=== PATIENT | male | born 1935 | race African-American/Black ===

== ENCOUNTER 2017-09-20 13:25 | Inpatient (IN) | payer MEDICARE, MEDICAID ==
[2017-09-20 15:46] LABS: #Eosinphils 0.3 thou/uL (0.0-0.7); #Lymphocytes 0.8 thou/uL (1.20-3.40); #Monocytes 0.5 thou/uL (0.11-0.59); #Neutrophils 4.8 thou/uL (1.40-6.50); %Basophils 0.5 % (0.0-1.0); %Eosinophils 4.9 % (0.0-10.0); %Lymphocytes 12.3 % (21.0-51.0); %Monocytes 7.4 % (0.0-10.0); %Neutrophils 74.9 % (42.0-75.0); Hemoglobin 12.2 g/dL (14.0-18.0); Mean Corpuscular HGB CONC 32.3 g/dL (32.0-36.0); Mean Corpuscular Hemoglobin 27.8 pg (27.0-31.0); Mean Corpuscular Volume 86.2 fL (78.0-98.0); Platelet Count 137 thou/uL (130-400); RBC Distribution Width 16.9 % (11.5-14.5); Red Blood Cell (RBC) Count 4.37 mill/uL (4.70-6.10); White Blood Cell (WBC) Count 6.4 thou/uL (4.8-10.8)
[2017-09-20 16:07] LABS: ALT (SGPT) 8 U/L (8-55); AST (SGOT) 14 U/L (5-34); Albumin 4.3 g/dL (3.4-4.8); Alkaline Phosphatase 114 U/L (40-150); Anion Gap 19 mmol/L (10-20); BUN (Urea Nitrogen) 50 mg/dL (8.4-25.7); Bilirubin, Total 0.8 mg/dL (0.2-1.2); Calc. Creatinine Clearance 0 mL/min (70-130); Calcium 9.4 mg/dL (7.8-10.44); Carbon Dioxide 28 mmol/L (23-31); Chloride 95 mmol/L (98-107); Estimated GFR-MDRD 7; Globulin 3.5 g/dL (2.4-3.5); Glucose 105 mg/dL (83-110); Protein, Total 7.8 g/dL (5.8-8.1); Sodium 137 mmol/L (136-145)
[2017-09-20] MEDS ORDERED: Famotidine 20 MG TAB PO SCH (17:15)
--- NOTE | 2017-09-20 19:14 | PDOC.FPRHP ---
- History of Present Illness History of Present Illness: 82 yo M halfway patient with PMH of ESRD on dialysis presents for clotted AV Fistula in [facility]. Saturday, patient went for dialysis and was found to have a clot in his fistula. He received a successful arteriogram from [facility]. The next day access clotted again, was sent to [facility] for second opinion, AV fistulogram performed without success. Pt denies any headache, fever /chills, SOB, chest pain. Reports arm is slightly sore. - Allergies/Adverse Reactions Allergies Allergy/AdvReac Type Severity Reaction Status Date / Time aspirin Allergy Verified 09/20/17 12:07 codeine Allergy Verified 09/20/17 12:07 - History PMHx: ESRD on MWF dialysis, HTN, HLD, DM2, CAD, hyperphosphatemia, GERD, irregular heart beat PSHx: s/p cufted hemodialysis cath, s/p L dialysis shunt fistulogram, cataract surgery FHx: Mother- unspecified cancer, denied cardiac hx Social: denied tobacco/drugs/alcohol. Lives at [facility]. - Review of Systems General: denies: fever/chills Eyes: denies: eye pain, vision changes ENT: reports: nasal congestion, rhinorrhea Respiratory: reports: cough, congestion. denies: shortness of breath Cardiovascular: denies: chest pain, palpitation Gastrointestinal: denies: nausea, vomiting, diarrhea, constipation, abdominal pain, GI bleeding Musculoskeletal: denies: pain - Vital signs BP 151/59, P 71, R 18, T 98.4, O2 95% on RA - Physical Exam Constitutional: NAD HEENT: normocephalic and atraumatic, PERRLA, MMM, other (poor dentition) Neck: supple, no LAD Heart: RRR, normal S1/S2, no murmurs/rubs/gallops, pulses present Lungs: CTAB, no respiratory distress, good air movement, no rales/rhonchi Abdomen: non-tender, bowel sounds present, no masses/distention Neurological: CN II-XII intact Skin: good turgor, capillary refill <2 seconds Psychiatric: normal mood and affect, intact recent and remote memory FMR H&P: Results - Labs Result Diagrams: 09/21/17 04:44 09/21/17 04:44 Lab results: WBC 6.4 thou/uL (4.8-10.8) 09/20/17 15:36 Hgb 12.2 g/dL (14.0-18.0) L 09/20/17 15:36 Hct 37.7 % (42.0-52.0) L 09/20/17 15:36 MCV 86.2 fL (78.0-98.0) 09/20/17 15:36 Plt Count 137 thou/uL (130-400) 09/20/17 15:36 Neutrophils % 74.9 % (42.0-75.0) 09/20/17 15:36 Sodium 137 mmol/L (136-145) 09/20/17 15:36 Potassium 5.0 mmol/L (3.5-5.1) 09/20/17 15:36 Chloride 95 mmol/L (98-107) L 09/20/17 15:36 Carbon Dioxide 28 mmol/L (23-31) 09/20/17 15:36 BUN 50 mg/dL (8.4-25.7) H 09/20/17 15:36 Creatinine 8.75 mg/dL (0.6-1.3) H 09/20/17 15:36 Glucose 105 mg/dL (83-110) 09/20/17 15:36 Calcium 9.4 mg/dL (7.8-10.44) 09/20/17 15:36 Total Bilirubin 0.8 mg/dL (0.2-1.2) 09/20/17 15:36 AST 14 U/L (5-34) 09/20/17 15:36 ALT 8 U/L (8-55) 09/20/17 15:36 Alkaline Phosphatase 114 U/L (40-150) 09/20/17 15:36 Serum Total Protein 7.8 g/dL (5.8-8.1) 09/20/17 15:36 Albumin 4.3 g/dL (3.4-4.8) 09/20/17 15:36 FMR H&P: A/P - Problem List (1) Thrombus due to any device, implant or graft Current Visit: Yes Status: Acute Code(s): T85.868A - THROMBOSIS DUE TO OTHER INTERNAL PROSTH DEV/GRFT, INIT (2) ESRD (end stage renal disease) on dialysis Current Visit: Yes Status: Chronic Code(s): N18.6 - END STAGE RENAL DISEASE ; Z99.2 - DEPENDENCE ON RENAL DIALYSIS (3) HTN (hypertension) Current Visit: Yes Status: Chronic Code(s): I10 - ESSENTIAL (PRIMARY) HYPERTENSION (4) T2DM (type 2 diabetes mellitus) Current Visit: Yes Status: Chronic (5) CAD (coronary artery disease) Current Visit: Yes Status: Chronic Code(s): I25.10 - ATHSCL HEART DISEASE OF [place] CORONARY ARTERY W/O ANG PCTRS (6) HLD (hyperlipidemia) Current Visit: Yes Status: Chronic Code(s): E78.5 - HYPERLIPIDEMIA, UNSPECIFIED (7) Hyperphosphatemia Current Visit: Yes Status: Chronic Code(s): E83.39 - OTHER DISORDERS OF PHOSPHORUS METABOLISM (8) Insomnia Current Visit: Yes Status: Chronic Code(s): G47.00 - INSOMNIA, UNSPECIFIED - Plan 82 yo M with PMH of ESRD on dialysis presents for clotted AV Fistula in [facility]. ESRD on dialysis MWF with clotted AV fistula in [facility] -Saturday, Pt had clot on Saturday and received successful arteriogram from [facility]. The next day access clotted again, was sent to [facility] for second opinion, AV fistulogram performed without success. Dr. Meyer out of town , stated patient my not have subclavian, IJ, or IV above wrist; then Dr. Wong was consulted for femoral vein catheter for temporary access until surgery can be performed on Saturday by Dr Celeste. -Diet: renal high protein diet HTN -Hydralazine , lasix, lisinopril, norvasc, coreg HLD and CAD -atorvastatin, plavix hyperphosphatemia -phoslo GERD -pepcid Insomnia -Trazodone DVT Prophylaxis -heparin due to his PERRYD Juan Amaya PGY-1 FMR H&P: Upper Level - Pertinent history 82M presents for clotted dialysis catheter. This has been a recurrent issue. First occurred 2 day prior; it was successfully cleared by radiology and he received dialysis at this time. Today, he was found to have clotted off his left arm fistula again. Radiology attempted to clear it but was unable to. Dr. Son then instructed patient to go to ER for admission to be evaluated by Gen. Surg to obtain vascular access. ROS: Gen: Deny fever, chills, malaise CV: Denies chest pain, palpitation. Resp: Denies SOB GI: Deny Abd pain PMH: HTN, DM2, ESRD PSH: L Dialysis shunt - Pertinent findings Vitals 138/66, Pulse 67, R 18, Tmax 98.5, 93% on RA, 96kg Gen: Alert, grossly oriented, NAD CV: Irregular heart rate heard, no obvious m/g/r Resp: CTA bilaterally, non labored Psych: Pleasant and cooperative - Plan Date/Time: 09/20/171911 I, [Jason Raymond], have evaluated this patient and agree with findings/plan as outlined by mba internship resident. Pertinent changes/additions are listed here. 1. Clotted AV Fistula: Discussed case with Nephrology and Gen Surg: Gen surg will place femoral vein catheter at this time. On Saturday, Dr. Celeste will be in and to be consulted at that time for evaluation of the clotted AV Fistula. Dr. Son with Nephrology is aware and on board for dialysis while patient is hospitalized. 2. Irregular HR: HR in normal range and patient not symptomatic. Will obtain EKG to clarify rhythm. Patient has plavix which he says he takes for irregular heart rhythm. Will continue it. 3. HLD: Continue atorvastatin 4. Chronic constipation: Continue dulcolax 5. HTN: Continue lisinpril/hydrlazine and norvasc 6. Gerd: Continue Pepcid 7. Hyperphosphatemia: Continue with phoslo. Attending Addendum - Attending Addendum Date/Time: 09/21/17 1213 I personally evaluated the patient and discussed the management with Dr. Amaya. I agree with the History, Examination, Assessment and Plan documented above with any addition or exceptions noted below.
[2017-09-20] MEDS ORDERED: Lidocaine 1% (PF) 30 ML VIAL ONE (19:57)
[2017-09-20] MEDS ORDERED: Lidocaine 1% (PF) 30 ML VIAL FS PRN (21:20)
[2017-09-20] MEDS: Atorvastatin Calcium 10 MG TAB PO SCH (22:30)
[2017-09-20] MEDS: hydrALAZINE 25 MG TAB PO SCH (22:30)
[2017-09-20] MEDS: Heparin 5,000 UNITS/ML VIAL SC SCH (22:31)
[2017-09-20] MEDS: traZODone HCl 50 MG TAB PO PRN (22:36)
[2017-09-20] MEDS: Acetaminophen 500 MG TAB PO PRN (22:36)
--- NOTE | 2017-09-20 23:49 | OP ---
DATE OF PROCEDURE: 09/20/2017 PREOPERATIVE DIAGNOSES: 1. Acute on chronic renal failure. 2. Clotted permanent dialysis access. POSTOPERATIVE DIAGNOSES: 1. Acute on chronic renal failure. 2. Clotted permanent dialysis access. PROCEDURE PERFORMED: Placement of right femoral Trialysis catheter. INDICATIONS FOR PROCEDURE: An 82-year-old -[place] man with history of chronic renal failure . The patient presented to the emergency department with a clotted dialysis access. I was asked to place a temporary dialysis access to facilitate hemodialysis. DESCRIPTION OF PROCEDURE: Informed consent obtained from the patient who was placed in supine positi on. Right groin was sterilely prepped and draped in usual fashion. Skin was anesthetized with 1% li docaine plain. The right femoral artery was palpated and the right femoral vein was then cannulated medial to the palpated artery. I returned dark venous blood using an 18-gauge introducer needle. Gu idewire was passed through the needle and advanced into the right femoral vein without resistance. T his was a single attempt. Needle was withdrawn over the guidewire. A stab incision was made adjacen t to the guidewire using an 11 scalpel. A dilator was passed over the guidewire dilating subcutaneou s tissues. Dilator was removed and a triple-lumen Trialysis catheter was advanced over the guidewire and placed in the right femoral vein without resistance. Guidewire was removed. Dark venous blood was aspirated from all 3 ports which were individually flushed with saline and then with heparin. Ca theter secured to right groin using a 3-0 nylon suture at 2 points. Sterile dressings were applied. The patient tolerated this procedure without any apparent complication and remains hemodynamically s table following completion of the procedure.
[2017-09-21 01:19] VITALS: BMI 28.8
[2017-09-21 04:57] LABS: #Eosinphils 0.3 thou/uL (0.0-0.7); #Lymphocytes 0.8 thou/uL (1.20-3.40); #Monocytes 0.7 thou/uL (0.11-0.59); #Neutrophils 3.8 thou/uL (1.40-6.50); %Basophils 0.3 % (0.0-1.0); %Eosinophils 5.4 % (0.0-10.0); %Lymphocytes 14.1 % (21.0-51.0); %Monocytes 11.8 % (0.0-10.0); %Neutrophils 68.3 % (42.0-75.0); Hemoglobin 10.6 g/dL (14.0-18.0); Mean Corpuscular HGB CONC 32.9 g/dL (32.0-36.0); Mean Corpuscular Hemoglobin 28.1 pg (27.0-31.0); Mean Corpuscular Volume 85.4 fL (78.0-98.0); Mean Platelet Volume 9.7 fL (7.4-10.4); Platelet Count 123 thou/uL (130-400); Red Blood Cell (RBC) Count 3.77 mill/uL (4.70-6.10); White Blood Cell (WBC) Count 5.6 thou/uL (4.8-10.8)
[2017-09-21 05:22] LABS: Anion Gap 22 mmol/L (10-20); BUN (Urea Nitrogen) 63 mg/dL (8.4-25.7); Calc. Creatinine Clearance 8 mL/min (70-130); Calcium 9.2 mg/dL (7.8-10.44); Carbon Dioxide 28 mmol/L (23-31); Chloride 95 mmol/L (98-107); Estimated GFR-MDRD 6; Glucose 75 mg/dL (83-110); Phosphorus 5.2 mg/dL (2.3-4.7); Potassium 5.6 mmol/L (3.5-5.1); Sodium 139 mmol/L (136-145)
[2017-09-21] MEDS ORDERED: Dextrose 5% in Water 1,000 ML IV PRN (05:50)
[2017-09-21] MEDS ORDERED: HumaLOG 300 UNITS/3 ML VIAL SC PRN ×2 (05:50)
[2017-09-21] MEDS ORDERED: Dextrose 50% Abboject 50 ML SYRINGE SLOW IVP PRN (05:50)
--- NOTE | 2017-09-21 06:06 | PDOC.FM ---
- Subjective Subjective: Pt. states that he is frustrated by how many times he is being stuck for blood. He wants to know when he can leave. 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 He also states that he is having some pain in his groin where they placed the catheter. He denies chest pain, dyspnea, abdominal pain, nausea , or vomiting. - Objective MAR Reviewed: Yes Vital Signs & Weight: Vital Signs (12 hours) Temp Pulse Resp BP BP Pulse Ox 09/21/17 04:00 98.1 F 65 16 137/70 90 L 09/21/17 00:00 98.5 F 62 16 121/66 93 L 09/20/17 22:30 71 154/71 H 09/20/17 21:30 98.5 F 62 16 09/20/17 20:34 98.4 F 63 18 154/71 H 94 L Weight Weight 96.6 kg Result Diagrams: 09/21/17 04:44 09/21/17 04:44 <Enrique Parham - Last Filed: 09/21/17 07:46> - Objective Vital Signs & Weight: Vital Signs (12 hours) Temp Pulse Resp BP BP Pulse Ox 09/21/17 08:23 154/71 H 09/21/17 08:22 64 154/71 H 09/21/17 08:19 64 154/71 H 09/21/17 08:00 98.2 F 64 18 97 09/21/17 07:39 98.3 F 64 20 124/77 90 L 09/21/17 04:00 98.1 F 65 16 137/70 90 L Weight Weight 96.6 kg I&O: 09/20/17 09/21/17 09/22/17 06:59 06:59 06:59 Intake Total 640 Balance 640 Result Diagrams: 09/21/17 04:44 09/21/17 04:44 <Doyle Crespo - Last Filed: 09/21/17 12:42> Phys Exam - Physical Examination Constitutional: NAD HEENT: PERRLA, moist MMs Neck: no JVD, full ROM Respiratory: no wheezing, no rales Cardiovascular: RRR, no significant murmur Gastrointestinal: soft, non-tender, no distention, positive bowel sounds Musculoskeletal: no edema, pulses present Neurological: normal sensation, moves all 4 limbs Psychiatric: normal affect, A&O x 3 Skin: normal turgor, cap refill <2 seconds <Enrique Parham - Last Filed: 09/21/17 07:46> Dx/Plan (1) Thrombus due to any device, implant or graft Code(s): T85.868A - THROMBOSIS DUE TO OTHER INTERNAL PROSTH DEV/GRFT, INIT Status: Acute (2) CAD (coronary artery disease) Code(s): I25.10 - ATHSCL HEART DISEASE OF [place] CORONARY ARTERY W/O ANG PCTRS Status: Chronic (3) ESRD (end stage renal disease) on dialysis Code(s): N18.6 - END STAGE RENAL DISEASE; Z99.2 - DEPENDENCE ON RENAL DIALYSIS Status: Chronic (4) HLD (hyperlipidemia) Code(s): E78.5 - HYPERLIPIDEMIA, UNSPECIFIED Status: Chronic (5) HTN (hypertension) Code(s): I10 - ESSENTIAL (PRIMARY) HYPERTENSION Status: Chronic (6) Hyperphosphatemia Code(s): E83.39 - OTHER DISORDERS OF PHOSPHORUS METABOLISM Status: Chronic (7) Insomnia Code(s): G47.00 - INSOMNIA, UNSPECIFIED Status: Chronic (8) T2DM (type 2 diabetes mellitus) Status: Chronic - Plan Plan: This is an 82 yo male with PMH of ESRD w/ HD, HTN, DM2, CAD, HLD, GERD Clotted AV fistula in right arm -Dr. Son has been consulted to provide dialysis while pt. is her. A triple- lumen Trialysis catheter was placed in the right groin by Dr. Wong. On saturday, pt will be seen by Dr. Celeste for evaluation of AV fistula. ESRD w/ HD MWF -Will dialize through temporary femoral access HTN -Norvasc, Lisinopril, coreg, hydralazine HLD and CAD -atorvastatin, plavix Hyperphosphatemia -Phoslo GERD -Pepcid Insomnia -Trazodone Code: <Enrique Parham - Last Filed: 09/21/17 07:46> (1) Thrombus due to any device, implant or graft Code(s): T85.868A - THROMBOSIS DUE TO OTHER INTERNAL PROSTH DEV/GRFT, INIT Status: Acute (2) ESRD (end stage renal disease) on dialysis Code(s): N18.6 - END STAGE RENAL DISEASE; Z99.2 - DEPENDENCE ON RENAL DIALYSIS Status: Chronic (3) HTN (hypertension) Code(s): I10 - ESSENTIAL (PRIMARY) HYPERTENSION Status: Chronic (4) T2DM (type 2 diabetes mellitus) Status: Chronic (5) CAD (coronary artery disease) Code(s): I25.10 - ATHSCL HEART DISEASE OF [place] CORONARY ARTERY W/O ANG PCTRS Status: Chronic (6) HLD (hyperlipidemia) Code(s): E78.5 - HYPERLIPIDEMIA, UNSPECIFIED Status: Chronic (7) Hyperphosphatemia Code(s): E83.39 - OTHER DISORDERS OF PHOSPHORUS METABOLISM Status: Chronic (8) Insomnia Code(s): G47.00 - INSOMNIA, UNSPECIFIED Status: Chronic <Doyle Crespo - Last Filed: 09/21/17 12:42> Attending Addendum - Attending Addendum Date/Time: 09/21/17 1242 I personally evaluated the patient and discussed the management with Dr. Parham. I agree with the History, Examination, Assessment and Plan documented above with any addition or exceptions noted below. HD today. We appreciate Surgery's care. Hopefully vascular treatment on Saturday. <Doyle Crespo - Last Filed: 09/21/17 12:42>
[2017-09-21] MEDS: Acetaminophen 500 MG TAB PO PRN ×3 (07:14→20:47)
[2017-09-21] MEDS: Amlodipine 10 MG TAB PO SCH (08:19)
[2017-09-21] MEDS: Carvedilol 6.25 MG TAB PO SCH ×2 (08:19→17:46)
[2017-09-21] MEDS: Calcium Acetate 667 MG CAP PO SCH ×3 (08:19→17:46)
[2017-09-21] MEDS: Heparin 5,000 UNITS/ML VIAL SC SCH ×2 (08:19→14:55)
[2017-09-21] MEDS: Famotidine 20 MG TAB PO SCH (08:19)
[2017-09-21] MEDS: Clopidogrel Bisulfate 75 MG TAB PO SCH (08:19)
[2017-09-21] MEDS: hydrALAZINE 25 MG TAB PO SCH ×3 (08:22→20:44)
[2017-09-21] MEDS: Lisinopril 20 MG TAB PO SCH (08:23)
[2017-09-21] MEDS ORDERED: Epoetin (ESRD) 20,000 UNITS/ML SC SCH ×2 (09:00→17:00)
[2017-09-21] MEDS ORDERED: Prevnar 13-Val Conj/PF 0.5 ML SYRINGE IM ONE (09:00)
--- NOTE | 2017-09-21 12:15 | PRG ---
DATE OF SERVICE: 09/21/2017 SUBJECTIVE: Mr. Garcia is an 82-year-old black male with known history of ESRD from presumed hyperte nsive nephropathy and was admitted for nonfunctioning AV fistula. Two attempts to open this in the p ast for this reason, he was admitted for further surgical evaluation. We have consulted Dr. Sawyer and Dr. Celeste and they will not be back until Saturday. In addition, a surgical consult was bryant gupta with Dr. Wong and was placed temporary femoral dialysis catheter. This morning, he is feeling bet ter. Earlier this a.m., had some irregular heartbeat. Please note, this patient has a history of on and off fibrillation in the past. No complaints of chest pain or shortness of breath. OBJECTIVE: VITAL SIGNS: Blood pressure is 124/77, heart rate 64, respiratory rate 20, temperature 98.3, pulse o x 98%. GENERAL: Noted to be awake, sitting comfortable, not in distress. SKIN: Adequate turgor. HEENT: Slightly pale conjunctivae, anicteric sclerae. Decreased visual acuity. NECK: No neck mass, no carotid bruits, no JVD. LUNGS: Clear breath sounds. No wheezing, no crackles. HEART: Normal sinus rhythm. No murmur, no gallops or rubs. ABDOMEN: Globular, soft, nontender, no masses. EXTREMITIES: No edema. MEDICATIONS: Of 09/21/2017, reviewed. LABORATORY: Of 09/21/2017, white count 5.6, hemoglobin 10.6. Sodium 139, potassium 5.6, chloride 95 , carbon dioxide 28, BUN is 63, creatinine 9.66, glucose 75, calcium 9.2, phosphorus 5.2. PTH is 101 2. ASSESSMENT AND PLAN: 1. Borderline anemia - we will start this patient on Epogen at 7500 units subcutaneously every week. 2. Elevated PTH. Consider starting patient on calcitriol 0.5 mcg tab daily. 3. Hyperphosphatemia. Continue current phosphate binder use. 4. End-stage renal disease - temporary femoral dialysis catheter has been placed. I will schedule h im a 4-hour hemodialysis today. Fluid removal as tolerated by the patient. 5. Hypertension, stable. Continue current blood pressure meds. Recheck base met and CBC in a.m.
[2017-09-21] MEDS: Calcitriol 0.25 MCG CAP PO SCH (15:51)
[2017-09-21] MEDS: Atorvastatin Calcium 10 MG TAB PO SCH (20:41)
[2017-09-22] MEDS: Heparin 5,000 UNITS/ML VIAL SC SCH ×4 (00:16→21:00)
[2017-09-22 05:29] LABS: #Eosinphils 0.3 thou/uL (0.0-0.7); #Lymphocytes 0.7 thou/uL (1.20-3.40); #Monocytes 0.6 thou/uL (0.11-0.59); #Neutrophils 3.4 thou/uL (1.40-6.50); %Basophils 0.1 % (0.0-1.0); %Eosinophils 5.5 % (0.0-10.0); %Lymphocytes 13.3 % (21.0-51.0); %Monocytes 11.4 % (0.0-10.0); %Neutrophils 69.7 % (42.0-75.0); Hemoglobin 10.7 g/dL (14.0-18.0); Mean Corpuscular HGB CONC 32.1 g/dL (32.0-36.0); Mean Corpuscular Hemoglobin 27.7 pg (27.0-31.0); Mean Corpuscular Volume 86.4 fL (78.0-98.0); Mean Platelet Volume 9.9 fL (7.4-10.4); Platelet Count 128 thou/uL (130-400); RBC Distribution Width 17.1 % (11.5-14.5); Red Blood Cell (RBC) Count 3.85 mill/uL (4.70-6.10); White Blood Cell (WBC) Count 4.9 thou/uL (4.8-10.8)
[2017-09-22 05:43] LABS: Anion Gap 17 mmol/L (10-20); BUN (Urea Nitrogen) 29 mg/dL (8.4-25.7); Calc. Creatinine Clearance 13 mL/min (70-130); Calcium 8.6 mg/dL (7.8-10.44); Carbon Dioxide 24 mmol/L (23-31); Chloride 97 mmol/L (98-107); Estimated GFR-MDRD 10; Glucose 89 mg/dL (83-110); Potassium 4.8 mmol/L (3.5-5.1); Sodium 133 mmol/L (136-145)
--- NOTE | 2017-09-22 06:00 | PDOC.FM ---
- Subjective Subjective: Pt. states he is frustrated at the number of needle sticks he has been receiving. He also reports his femoral catheter bothering him. He denies any chest pain, shortness of breath, headaches. Nursing states that his daughter is coming up to the hospital. - Objective MAR Reviewed: Yes Vital Signs & Weight: Vital Signs (12 hours) Temp Pulse Resp BP BP Pulse Ox 09/21/17 20:44 62 134/74 09/21/17 20:00 98.3 F 62 18 134/71 94 L 09/21/17 19:36 98.3 F 58 L 18 98/55 L 91 L Weight Weight 96.6 kg I&O: 09/20/17 09/21/17 09/22/17 06:59 06:59 06:59 Intake Total 1120 Balance 1120 Result Diagrams: 09/22/17 05:18 09/22/17 05:18 <Enrique Parham - Last Filed: 09/22/17 07:44> - Objective Vital Signs & Weight: Vital Signs (12 hours) Temp Pulse Resp BP BP Pulse Ox 09/22/17 08:00 97.9 F 61 18 169/79 H 95 09/22/17 07:55 62 134/74 Weight Weight 96.6 kg I&O: 09/21/17 09/22/17 09/23/17 06:59 06:59 06:59 Intake Total 1120 360 Balance 1120 360 Result Diagrams: 09/22/17 05:18 09/22/17 05:18 <Doyle Crespo A - Last Filed: 09/22/17 13:10> Phys Exam - Physical Examination Constitutional: NAD HEENT: PERRLA, moist MMs Pt. is blind but has good control of environment Neck: no JVD, full ROM Respiratory: no wheezing, clear to auscultation bilateral Cardiovascular: RRR, no significant murmur Gastrointestinal: soft, non-tender, no distention, positive bowel sounds Musculoskeletal: no edema, pulses present Neurological: normal sensation, moves all 4 limbs Psychiatric: normal affect, A&O x 3 Skin: normal turgor, cap refill <2 seconds <Enrique Parham - Last Filed: 09/22/17 07:44> Dx/Plan (1) Thrombus due to any device, implant or graft Code(s): T85.868A - THROMBOSIS DUE TO OTHER INTERNAL PROSTH DEV/GRFT, INIT Status: Acute (2) CAD (coronary artery disease) Code(s): I25.10 - ATHSCL HEART DISEASE OF [place] CORONARY ARTERY W/O ANG PCTRS Status: Chronic (3) ESRD (end stage renal disease) on dialysis Code(s): N18.6 - END STAGE RENAL DISEASE; Z99.2 - DEPENDENCE ON RENAL DIALYSIS Status: Chronic (4) HLD (hyperlipidemia) Code(s): E78.5 - HYPERLIPIDEMIA, UNSPECIFIED Status: Chronic (5) HTN (hypertension) Code(s): I10 - ESSENTIAL (PRIMARY) HYPERTENSION Status: Chronic (6) Hyperphosphatemia Code(s): E83.39 - OTHER DISORDERS OF PHOSPHORUS METABOLISM Status: Chronic (7) Insomnia Code(s): G47.00 - INSOMNIA, UNSPECIFIED Status: Chronic (8) T2DM (type 2 diabetes mellitus) Status: Chronic - Plan Plan: This is an 82 yo male with PMH of ESRD w/ HD, HTN, DM2, CAD, HLD, GERD Clotted AV fistula in right arm -Dr. Son has been consulted to provide dialysis while pt. is her. A triple- lumen Trialysis catheter was placed in the right groin by Dr. Wong. On saturday, pt will be seen by Dr. Celeste for evaluation of AV fistula. ESRD w/ HD MWF -Will dialize through temporary femoral access. Dr. Son has been following patient and seeing him in dialysis Afib -PtNikos altman has long standing afib with no records in his custodial charts. Yesterday an EKG revealed afib rate controlled. We planned on monitoring him on tele and consulting cardiology. After a discussion with pt. and his daughter, we learned about his longstanding afib and their desire not to pursue any workup. I personally called to daughter and explained our rational for treating him as well as our plan going forward. Per nursing, daughter is still frustrated at the care her father is receiving. If she comes up her, I will try and listen to her concerns. HTN -Norvasc, Lisinopril, coreg, hydralazine HLD and CAD -atorvastatin, plavix Hyperphosphatemia -Phoslo GERD -Pepcid Insomnia -Trazodone Code:DNR Prophylaxis: Heparin Family: discussed plans with daughter Disposition: Home in 1-2 days pending fistula surgery <Enrique Parham - Last Filed: 09/22/17 07:44> (1) Thrombus due to any device, implant or graft Code(s): T85.868A - THROMBOSIS DUE TO OTHER INTERNAL PROSTH DEV/GRFT, INIT Status: Acute (2) ESRD (end stage renal disease) on dialysis Code(s): N18.6 - END STAGE RENAL DISEASE; Z99.2 - DEPENDENCE ON RENAL DIALYSIS Status: Chronic (3) HTN (hypertension) Code(s): I10 - ESSENTIAL (PRIMARY) HYPERTENSION Status: Chronic (4) T2DM (type 2 diabetes mellitus) Status: Chronic (5) CAD (coronary artery disease) Code(s): I25.10 - ATHSCL HEART DISEASE OF [place] CORONARY ARTERY W/O ANG PCTRS Status: Chronic (6) HLD (hyperlipidemia) Code(s): E78.5 - HYPERLIPIDEMIA, UNSPECIFIED Status: Chronic (7) Hyperphosphatemia Code(s): E83.39 - OTHER DISORDERS OF PHOSPHORUS METABOLISM Status: Chronic (8) Insomnia Code(s): G47.00 - INSOMNIA, UNSPECIFIED Status: Chronic <Doyle Crespo - Last Filed: 09/22/17 13:10> Attending Addendum - Attending Addendum Date/Time: 09/22/17 [id number] I personally evaluated the patient and discussed the management with Dr. Parham. I agree with the History, Examination, Assessment and Plan documented above with any addition or exceptions noted below. Because of our evalaution of patients atrial fib, family requests transfer to another service. Mr. Garcia seemed pleased with our care, and out of respect for him and his family we have requested [facility] to accept care and they kindly have. <Doyle Crespo - Last Filed: 09/22/17 13:10>
[2017-09-22] MEDS: Calcitriol 0.25 MCG CAP PO SCH (07:53)
[2017-09-22] MEDS: Famotidine 20 MG TAB PO SCH (07:54)
[2017-09-22] MEDS: Calcium Acetate 667 MG CAP PO SCH ×3 (07:55→16:47)
[2017-09-22] MEDS: Clopidogrel Bisulfate 75 MG TAB PO SCH (07:55)
[2017-09-22] MEDS: Amlodipine 10 MG TAB PO SCH (07:55)
[2017-09-22] MEDS: hydrALAZINE 25 MG TAB PO SCH ×3 (07:55→20:56)
[2017-09-22] MEDS: Carvedilol 6.25 MG TAB PO SCH ×2 (07:55→16:47)
[2017-09-22] MEDS: Lisinopril 20 MG TAB PO SCH (07:55)
--- NOTE | 2017-09-22 09:05 | PRG ---
DATE OF SERVICE: 09/22/2017 SERVICE: Renal Medicine. SUBJECTIVE: Mr. Garcia is an 82-year-old black male, who was admitted for a clotted AV fistula. Att empt to open this up 2 times was unsuccessful, hence the admission. We are waiting for surgical eval uation by Dr. Meyer/Dr. Celeste. He underwent hemodialysis yesterday. A temporary femoral dialysis catheter was placed. He voices no new complaints today. PHYSICAL EXAMINATION: VITAL SIGNS: Blood pressure is 134/74, heart rate 62. GENERAL EXAM: Noted to be awake, alert, comfortable, not in distress. SKIN: Adequate turgor. HEENT: Slightly pale conjunctivae, anicteric sclerae. NECK: No neck mass, no carotid bruits, no JVD. CHEST: No deformities. LUNGS: Clear breath sounds. HEART: Normal sinus rhythm. No murmur, no gallops, no rubs. ABDOMEN: Globular, soft, nontender, no masses. EXTREMITIES: No edema. LABORATORY DATA: Laboratories of 09/22/2017, white count 4.9, hemoglobin 10.7. Sodium 133, potassiu m 4.8, chloride 97, carbon dioxide 24, BUN 29, creatinine 6.39, calcium 8.6. 09/21/2017, PTH 1012. ASSESSMENT AND PLAN: 1. End-stage renal disease - stable, underwent hemodialysis yesterday, tolerated said treatment. Fl uid removal was tolerated also. We will continue current Saturday, Saturday, Saturday hemodialysis. 2. Anemia, started on Epogen. 3. Secondary hyperparathyroidism. Calcitriol 0.5 mcg tab daily was started. 4. Mild hyperphosphatemia, on phosphate binders. 5. Clotted left upper extremity arteriovenous fistula. Awaiting surgical input. Recheck basic metabolic panel and CBC in a.m.
--- NOTE | 2017-09-22 09:11 | PDOC.EVN ---
Event Note - Event Note Event Note: Pt's daughter has elected to fire current hospitalist service. Pt. and daughter has been dissatisfied with current care. This dissatisfaction stems from our attempt to work up afib. This was a new diagnosis to us and we transferred to telemetry and planned to consult cardiology for recommendations. Pt. and daughter did not want this worked up because it was a chronic problem, which was unknown to us prior to admission. It is not documented in his [facility] history.
--- NOTE | 2017-09-22 14:16 | PDOC.PN ---
- Subjective Encounter Start Date: 09/22/17 Encounter Start Time: 12:20 Subjective: right groin catheter is bothersome, patient wants it out - Objective Resuscitation Status: Resuscitation Status DNR:Do Not Resuscitate MAR Reviewed: Yes Vital Signs & Weight: Vital Signs (12 hours) Temp Pulse Resp BP BP Pulse Ox 09/22/17 12:00 98.0 F 67 18 122/71 94 L 09/22/17 08:00 97.9 F 61 18 169/79 H 95 09/22/17 07:55 62 134/74 Weight Weight 212 lb 15.465 oz I&O: 09/21/17 09/22/17 09/23/17 06:59 06:59 06:59 Intake Total 1120 360 Balance 1120 360 Result Diagrams: 09/22/17 05:18 09/22/17 05:18 Additional Labs: Accuchecks 09/22/17 09/21/17 06:14 16:07 POC Glucose 81 157 H Phys Exam - Physical Examination HEENT: PERRLA, moist MMs, sclera anicteric, TM's clear, oral pharynx no lesions , 2+ tonsils Neck: no nodes, no JVD, supple, full ROM Respiratory: no wheezing, no rales, no rhonchi, wheezing present, clear to auscultation bilateral Cardiovascular: no significant murmur, no rub, irregular Gastrointestinal: soft, non-tender, no distention, positive bowel sounds Musculoskeletal: no edema left femral dialysis catheter, left dialysis fistula covered in dressing Neurological: non-focal, normal sensation, moves all 4 limbs Psychiatric: normal affect, A&O x 3 Skin: no rash, normal turgor, cap refill <2 seconds Dx/Plan (1) Thrombus due to any device, implant or graft Code(s): T85.868A - THROMBOSIS DUE TO OTHER INTERNAL PROSTH DEV/GRFT, INIT Status: Acute (2) ESRD (end stage renal disease) on dialysis Code(s): N18.6 - END STAGE RENAL DISEASE; Z99.2 - DEPENDENCE ON RENAL DIALYSIS Status: Chronic (3) HTN (hypertension) Code(s): I10 - ESSENTIAL (PRIMARY) HYPERTENSION Status: Chronic (4) T2DM (type 2 diabetes mellitus) Status: Chronic - Plan cont current plan of care, plan discussed w/ family This is an 82 yo male with PMH of ESRD w/ HD, HTN, DM2, CAD, HLD, GERD Clotted AV fistula in right arm -Dr. Son has been consulted to provide dialysis while pt. is here. A triple- lumen Trialysis catheter was placed in the right groin by Dr. Wong. On saturday, pt will be seen by Dr. Celeste for evaluation of AV fistula. ESRD w/ HD MWF -Will dialize through temporary femoral access. Dr. Son has been following patient and seeing him in dialysis Afib -PtNikos altman has long standing afib with no records in his shelter charts. Yesterday an EKG revealed afib rate controlled. Patient was moved to tele unit for further monitoring by resident team. Family was unhappy and requested [facility] to take over the care HTN -Norvasc, Lisinopril, coreg, hydralazine HLD and CAD -atorvastatin, plavix Hyperphosphatemia -Phoslo GERD -Pepcid Insomnia -Trazodone * .
[2017-09-22] MEDS: Acetaminophen 500 MG TAB PO PRN ×2 (15:25→20:59)
[2017-09-22] MEDS: Atorvastatin Calcium 10 MG TAB PO SCH (20:59)
[2017-09-23] MEDS: Benzonatate 100 MG CAP PO PRN ×2 (02:46→21:00)
[2017-09-23 05:14] LABS: #Eosinphils 0.3 thou/uL (0.0-0.7); #Lymphocytes 0.8 thou/uL (1.20-3.40); #Monocytes 0.6 thou/uL (0.11-0.59); #Neutrophils 3.8 thou/uL (1.40-6.50); %Basophils 0.5 % (0.0-1.0); %Eosinophils 5.8 % (0.0-10.0); %Lymphocytes 15.1 % (21.0-51.0); %Monocytes 10.5 % (0.0-10.0); Hemoglobin 10.6 g/dL (14.0-18.0); Mean Corpuscular HGB CONC 31.9 g/dL (32.0-36.0); Mean Corpuscular Hemoglobin 27.2 pg (27.0-31.0); Mean Corpuscular Volume 85.2 fL (78.0-98.0); Platelet Count 132 thou/uL (130-400); RBC Distribution Width 16.8 % (11.5-14.5); Red Blood Cell (RBC) Count 3.91 mill/uL (4.70-6.10); White Blood Cell (WBC) Count 5.5 thou/uL (4.8-10.8)
[2017-09-23 05:23] LABS: Anion Gap 19 mmol/L (10-20); BUN (Urea Nitrogen) 42 mg/dL (8.4-25.7); Calc. Creatinine Clearance 10 mL/min (70-130); Calcium 8.7 mg/dL (7.8-10.44); Carbon Dioxide 26 mmol/L (23-31); Chloride 94 mmol/L (98-107); Estimated GFR-MDRD 8; Glucose 74 mg/dL (83-110); Potassium 4.8 mmol/L (3.5-5.1); Sodium 134 mmol/L (136-145)
[2017-09-23] MEDS: Acetaminophen 500 MG TAB PO PRN ×2 (07:43→21:00)
--- NOTE | 2017-09-23 08:38 | PRG ---
DATE OF SERVICE: 09/23/2017 SUBJECTIVE: Mr. Garcia is a 82-year-old black male with known history of ESRD, was admitted for a cl otted AV fistula/graft. A temporary femoral dialysis catheter has been placed by Dr. Wong. We are waiting for surgical consult with Dr. Meyer/Dr. Celeste for possible surgical thrombectomy or revisi on of his access as well as placement of a permanent dialysis catheter if needed. No new complaints today except the fact that he complains of being disturbed in the middle of the night. No complaints of chest pain or shortness of breath. PHYSICAL EXAMINATION: VITAL SIGNS: Blood pressure is 115/68, heart rate 67, respiratory rate 14, temperature 98.3, pulse o x 95%. GENERAL: Noted to be awake, comfortable, not in overt distress. SKIN: Adequate turgor. HEENT: He has slightly pale conjunctivae, anicteric sclerae. NECK: No neck mass, no carotid bruits, no JVD. CHEST: No deformities. LUNGS: Clear breath sounds. HEART: Irregular to regular. No murmur, no gallops, no rubs. ABDOMEN: Globular, soft, nontender, no masses. EXTREMITIES: No edema, no deformities. MEDICATIONS: 09/23/2017 - Reviewed. LABORATORY: 09/23/2017 - White count 5.5, hemoglobin 10.6, sodium 134, potassium 4.8, chloride 94, c arbon dioxide 26, BUN 42, creatinine 8.27, glucose 87, calcium 8.7. ASSESSMENT AND PLAN: 1. End-stage renal disease, stable. Tolerating current hemodialysis regimen. I am at the bedside s upervising his dialysis. Attempting fluid removal as tolerated. 2. Anemia - on weekly Epogen. 3. Secondary hyperparathyroidism. The patient has been started on calcitriol 0.5 mcg tab daily. 4. Clotted AV fistula - surgical consult has been done. The patient is currently on n.p.o. I agree with current management.
[2017-09-23] MEDS ORDERED: Heparin 10,000 UNITS/ 10 ML VIAL ONE (09:00)
[2017-09-23] MEDS: Calcium Acetate 667 MG CAP PO SCH ×3 (09:44→16:04)
[2017-09-23] MEDS: Carvedilol 6.25 MG TAB PO SCH ×2 (09:45→16:04)
[2017-09-23] MEDS: Heparin 5,000 UNITS/ML VIAL SC SCH ×3 (09:45→20:59)
[2017-09-23] MEDS: hydrALAZINE 25 MG TAB PO SCH ×3 (09:46→20:59)
[2017-09-23] MEDS: Calcitriol 0.25 MCG CAP PO SCH (12:40)
[2017-09-23] MEDS: Clopidogrel Bisulfate 75 MG TAB PO SCH (12:42)
[2017-09-23] MEDS: Famotidine 20 MG TAB PO SCH (12:42)
[2017-09-23] MEDS: Amlodipine 10 MG TAB PO SCH (12:44)
[2017-09-23] MEDS: Lisinopril 20 MG TAB PO SCH (12:45)
--- NOTE | 2017-09-23 14:10 | PDOC.PN ---
- Subjective Encounter Start Date: 09/23/17 (f/u clotted AV fistula) Encounter Start Time: 14:07 Subjective: Pt c/o being hungry, unable to sleep after blood drawn overnight -: denies cp/sob/n/v/abd pain - Objective Resuscitation Status: Resuscitation Status DNR:Do Not Resuscitate Vital Signs & Weight: Vital Signs (12 hours) Temp Pulse Resp BP BP Pulse Ox 09/23/17 12:45 132/68 09/23/17 12:44 121/68 09/23/17 12:38 98.1 F 84 16 121/68 98 09/23/17 08:00 98.1 F 84 16 98 Weight Weight 212 lb 15.465 oz I&O: 09/22/17 09/23/17 09/24/17 06:59 06:59 06:59 Intake Total 1120 960 Balance 1120 960 Result Diagrams: 09/23/17 04:36 09/23/17 04:36 Phys Exam - Physical Examination Constitutional: NAD Respiratory: no wheezing, no rales, no rhonchi Cardiovascular: RRR, no significant murmur Gastrointestinal: soft, non-tender, no distention, positive bowel sounds Musculoskeletal: no edema Neurological: non-focal, normal sensation, moves all 4 limbs Psychiatric: normal affect Skin: no rash Dx/Plan (1) Thrombus due to any device, implant or graft Code(s): T85.868A - THROMBOSIS DUE TO OTHER INTERNAL PROSTH DEV/GRFT, INIT Status: Acute (2) CAD (coronary artery disease) Code(s): I25.10 - ATHSCL HEART DISEASE OF [place] CORONARY ARTERY W/O ANG PCTRS Status: Chronic Qualifiers: Coronary Disease-Associated Artery/Lesion type: [place] artery (3) ESRD (end stage renal disease) on dialysis Code(s): N18.6 - END STAGE RENAL DISEASE; Z99.2 - DEPENDENCE ON RENAL DIALYSIS Status: Chronic (4) HLD (hyperlipidemia) Code(s): E78.5 - HYPERLIPIDEMIA, UNSPECIFIED Status: Chronic Qualifiers: Hyperlipidemia type: unspecified Qualified Code(s): E78.5 - Hyperlipidemia , unspecified (5) HTN (hypertension) Code(s): I10 - ESSENTIAL (PRIMARY) HYPERTENSION Status: Chronic Qualifiers: Hypertension type: essential hypertension Qualified Code(s): I10 - Essential (primary) hypertension (6) T2DM (type 2 diabetes mellitus) Status: Chronic Qualifiers: Diabetes mellitus dining manager insulin use: without dining manager use - Plan * Gen Surgery consult - to see today. D/w person answering Dr. Anaya's phone - pt can eat today as unlikely to go to surgery today * continue home meds * * dvt prophy - scd's * gi prophy - not indicated * code status DNR * * reviewed plan of care with patient, no questions or further needs at end of eval.
[2017-09-23] MEDS: Atorvastatin Calcium 10 MG TAB PO SCH (20:59)
[2017-09-23] MEDS: traZODone HCl 50 MG TAB PO PRN (21:00)
--- NOTE | 2017-09-24 08:00 | PRG ---
DATE OF SERVICE: 09/24/2017 SERVICE: Renal Medicine. SUBJECTIVE: Mr. Garcia is an 82-year-old black male with end-stage renal disease and being followed by [facility] Service for his maintenance hemodialysis. He was admitted due to a clotted AV fistula and t he patient [facility], but this was not successful, hence admissi on to the hospital for a surgical thrombectomy versus surgical revision. He has been evaluated by Dr Nikos Celeste. He is due to the OR this afternoon. No new complaints. No chest pain or shortness of baldomero ath. He underwent hemodialysis yesterday without any difficulty. PHYSICAL EXAMINATION: VITAL SIGNS: Blood pressure is 138/83, heart rate 72, respiratory rate 16, temperature 98.1, pulse o x 92%. GENERAL: Noted to be awake, alert, comfortable, not in distress. SKIN: Adequate turgor. HEENT: Pinkish conjunctivae, anicteric sclerae. NECK: No neck mass, no carotid bruits, no JVD. CHEST: No deformities. LUNGS: Clear breath sounds, no wheezing, no crackles. HEART: Normal sinus rhythm. No murmur, no gallops, no rubs. ABDOMEN: Globular, soft, nontender, no masses. EXTREMITIES: No edema. MEDICATIONS: Of 09/24/2017 was reviewed. LABORATORY DATA: Of 09/23/2017, white count 5.5, hemoglobin 10.6. Sodium 134, potassium 4.8, chlori de 94, carbon dioxide 26, BUN 42, creatinine 4.27. ASSESSMENT AND PLAN: 1. Chronic atrial fibrillation - well controlled heart rate. Not a candidate for anticoagulation du e to compliance issues in the past. 2. End-stage renal disease, stable. We will continue current hemodialysis regimen. The patient und erwent dialysis yesterday without any difficulty. Fluid removal as tolerated. 3. Clotted AV fistula - the patient to undergo surgical exploration with Dr. Celeste. 4. Anemia, continuing weekly Epogen.
[2017-09-24] MEDS: Lisinopril 20 MG TAB PO SCH (08:33)
[2017-09-24] MEDS: Amlodipine 10 MG TAB PO SCH (08:34)
[2017-09-24] MEDS: Carvedilol 6.25 MG TAB PO SCH ×2 (08:34→18:20)
[2017-09-24] MEDS: hydrALAZINE 25 MG TAB PO SCH ×3 (08:34→23:02)
[2017-09-24] MEDS: Calcium Acetate 667 MG CAP PO SCH ×3 (08:35→18:20)
[2017-09-24] MEDS: Calcitriol 0.25 MCG CAP PO SCH (08:35)
[2017-09-24] MEDS: Famotidine 20 MG TAB PO SCH (08:36)
[2017-09-24] MEDS: Clopidogrel Bisulfate 75 MG TAB PO SCH (08:36)
[2017-09-24] MEDS: Heparin 5,000 UNITS/ML VIAL SC SCH ×3 (08:36→19:41)
--- NOTE | 2017-09-24 11:31 | PDOC.PN ---
- Subjective Encounter Start Date: 09/24/17 (f/u htn) Encounter Start Time: 11:30 Subjective: Pt denies any complaints, is awaiting surgery today - Objective Resuscitation Status: Resuscitation Status DNR:Do Not Resuscitate Vital Signs & Weight: Vital Signs (12 hours) Temp Pulse Resp BP BP Pulse Ox 09/24/17 08:34 72 138/83 09/24/17 08:33 138/83 09/24/17 08:00 98.1 F 72 16 92 L 09/24/17 07:21 98.1 F 72 16 138/83 92 L 09/24/17 00:22 98.4 F 61 16 135/67 92 L Weight Weight 212 lb 15.465 oz I&O: 09/23/17 09/24/17 09/25/17 06:59 06:59 06:59 Intake Total 960 820 Output Total 4500 Balance 960 -3680 Result Diagrams: 09/23/17 04:36 09/23/17 04:36 Phys Exam - Physical Examination Constitutional: NAD Respiratory: no wheezing, no rhonchi faint bibasilar rales Cardiovascular: RRR, no significant murmur Gastrointestinal: soft, non-tender, no distention, positive bowel sounds Musculoskeletal: no edema Neurological: non-focal, moves all 4 limbs Psychiatric: normal affect Skin: no rash Dx/Plan (1) Thrombus due to any device, implant or graft Code(s): T85.868A - THROMBOSIS DUE TO OTHER INTERNAL PROSTH DEV/GRFT, INIT Status: Acute (2) CAD (coronary artery disease) Code(s): I25.10 - ATHSCL HEART DISEASE OF [place] CORONARY ARTERY W/O ANG PCTRS Status: Chronic Qualifiers: Coronary Disease-Associated Artery/Lesion type: [place] artery (3) ESRD (end stage renal disease) on dialysis Code(s): N18.6 - END STAGE RENAL DISEASE; Z99.2 - DEPENDENCE ON RENAL DIALYSIS Status: Chronic (4) HLD (hyperlipidemia) Code(s): E78.5 - HYPERLIPIDEMIA, UNSPECIFIED Status: Chronic Qualifiers: Hyperlipidemia type: unspecified Qualified Code(s): E78.5 - Hyperlipidemia , unspecified (5) HTN (hypertension) Code(s): I10 - ESSENTIAL (PRIMARY) HYPERTENSION Status: Chronic Qualifiers: Hypertension type: essential hypertension Qualified Code(s): I10 - Essential (primary) hypertension (6) T2DM (type 2 diabetes mellitus) Status: Chronic Qualifiers: Diabetes mellitus remote computer terminal operator insulin use: without remote computer terminal operator use - Plan * * Appreciate Gen Surgery consult - to surgery today * anticipate dialysis tomorrow then return to his nursing facility in [place] * * Continue home meds as ordered * * dvt prophy - scd's * gi prophy - not indicated * code status DNR * * reviewed plan of care with patient, no questions or further needs at end of eval. .
[2017-09-24] MEDS ORDERED: ePHEDrine/0.9% NaCl/PF SYRINGE 50 mg/10 ml ONE (15:00)
[2017-09-24] MEDS ORDERED: PROPOFOL 200 MG/20 ML VIAL ONE (15:00)
[2017-09-24] MEDS ORDERED: Succinylcholine Chloride 20 MG/ML 10 ml SYRINGE FS ONE (15:00)
[2017-09-24] MEDS ORDERED: Fentanyl 100 MCG/2 ML VIAL ONE (16:56)
[2017-09-24] MEDS ORDERED: Midazolam HCl 2 mg/2 ml Vial ONE (18:16)
[2017-09-24] MEDS ORDERED: Ketamine 50 MG/ML VIAL ONE (18:17)
[2017-09-24] MEDS ORDERED: Lidocaine 2% 10 ML INJ ONE (18:22)
[2017-09-24] MEDS ORDERED: Sodium Chloride 0.9% 30 ML ONE (18:22)
[2017-09-24] MEDS ORDERED: Bupivacaine/Epinephrine 0.25% 30 ML VIAL ONE (18:22)
[2017-09-24] MEDS ORDERED: Heparin 10,000 UNITS/1 ML VIAL ONE (18:22)
[2017-09-24] MEDS ORDERED: Protamine Sulfate 50 MG/5 ML VIAL ONE (18:24)
[2017-09-24] MEDS ORDERED: Protamine Sulfate 250 MG/25 ML VIAL ONE (18:24)
[2017-09-24] MEDS ORDERED: Heparin 5,000 UNITS/ML VIAL ONE (18:24)
[2017-09-24] MEDS ORDERED: CEFAZOLIN/Water 2 GM/20 ML SYRINGE ONE (18:39)
--- NOTE | 2017-09-24 21:15 | CON ---
DATE OF CONSULTATION: 09/24/2017 REASON FOR CONSULTATION: Need for dialysis access. HISTORY: Mr. Garcia is an 82-year-old man on dialysis for the past 8 years via a left forearm graft. This was working well until recently, but has had problems with clotting and has had to be declotte d twice in recent times, but an attempt to declot it last week here at [facility] was unsuccessful. The patient has refused to consider placing an AV catheter or graft in his right arm since he is righ t handed. ALLERGIES: ASPIRIN and CODEINE. PAST MEDICAL HISTORY: End-stage renal failure on dialysis, hypertension, hyperlipidemia and irregula r heartbeat. He did have diabetes, but that resolved after he lost a lot of weight. PAST SURGICAL HISTORY: Left AV graft and cuffed hemodialysis catheter and cataract surgery. FAMILY HISTORY: Cancer in his mom, although he does not know what type. SOCIAL HISTORY: He does not smoke, drink or use illicit drugs. REVIEW OF SYSTEMS: He is legally blind. Otherwise, 10-system review of systems is negative except f or some minor congestion. PHYSICAL EXAMINATION: VITAL SIGNS: The patient is afebrile, heart rate 72, respirations 16, 92% saturated on room air, blo od pressure 138/83. GENERAL: Reveals a pleasant elderly man, in no acute distress. He is not flushed or toxic, jaundice d or icteric in appearance. HEENT: Unremarkable. NECK: Supple without lymphadenopathy or thyroid nodules. Scar from a prior cuffed hemodialysis cath eter noted. CARDIOVASCULAR: He is regular in its rate and rhythm without murmurs, rubs or gallops. LUNGS: Clear to auscultation. ABDOMEN: Soft, nontender and nondistended. EXTREMITIES: Warm and well perfused without edema. Left AV loop graft, has no thrill and no bruit. There is a good pulse in the brachial artery. NEUROLOGIC: No focal deficits. PSYCHIATRIC: Alert, oriented and appropriate. ASSESSMENT AND PLAN: Failing hemodialysis access, which has required revision and thrombectomies. I t is likely nearing the end of its useful life span and will need to be replaced. The patient strong ly desires another attempt at declotting it. He does not wish to have a hemodialysis catheter unless it is necessary; however, I have told him that I think there is a very good chance that it will be n ecessary and so he is okay with this as long as we do try to open up the graft first. The inherent r isks of surgery were discussed with the patient. These include, but are not limited to bleeding, inf ection, risks of anesthesia, hemothorax, pneumothorax, DVT or need further procedures. If we are mark ble to get the arteriovenous graft up and running again, I will order vein mapping and plan for an ev entual outpatient arteriovenous fistula or graft.
--- NOTE | 2017-09-24 21:21 | RAD ---
FRONTAL VIEW CHEST: INDICATIONS: THDC placement. COMPARISON: No prior comparison. FINDINGS: There is a left-sided tunneled vascular catheter, terminating in the SVC region. There is evidence o f fluid overload with bilateral pulmonary vascular congestion, bilateral pulmonary edema, and pleural fluid. No evidence of a post procedure pneumothorax. No shift of midline. IMPRESSION: 1. Fluid overload. 2. Left-sided vascular catheter placement without evidence of a significant post procedure pneumotho rax. POS: [facility]
[2017-09-24] MEDS: Atorvastatin Calcium 10 MG TAB PO SCH (23:02)
[2017-09-25] MEDS: Acetaminophen 500 MG TAB PO PRN (01:49)
[2017-09-25] MEDS: Calcitriol 0.25 MCG CAP PO SCH (09:03)
[2017-09-25] MEDS: Heparin 5,000 UNITS/ML VIAL SC SCH ×3 (09:04→21:11)
[2017-09-25] MEDS: Carvedilol 6.25 MG TAB PO SCH ×2 (09:04→17:11)
[2017-09-25] MEDS: Calcium Acetate 667 MG CAP PO SCH ×3 (09:04→17:13)
[2017-09-25] MEDS: Clopidogrel Bisulfate 75 MG TAB PO SCH (09:04)
[2017-09-25] MEDS: Famotidine 20 MG TAB PO SCH (09:04)
[2017-09-25] MEDS: hydrALAZINE 25 MG TAB PO SCH ×3 (09:05→21:10)
--- NOTE | 2017-09-25 09:56 | PRG ---
DATE OF SERVICE: 09/25/2017 SUBJECTIVE: Mr. Garcia is an 82-year-old black male with ESRD who was admitted for nonfunctioning le ft AV fistula. Surgery has seen this patient. Attempt for surgical thrombectomy was said to not to have been successful. A left IJ cuffed dialysis catheter has been placed. My plan is to eventually redo his dialysis access. No new complaints today. He requested to be changed to a regular diet. No other complaints. PHYSICAL EXAMINATION: VITAL SIGNS: Blood pressure is 145/71, heart rate 67, respiratory rate 16, temperature 97.6, pulse o x 97%. GENERAL: Noted to be awake, alert, supine, comfortable, not in distress. SKIN: Adequate turgor. HEENT: Pinkish conjunctivae, anicteric sclerae. No neck mass. No carotid bruits, no JVD. Decrease d visual acuity. LUNGS: Clear breath sounds, no wheezing, no crackles. HEART: Irregular. No murmurs, no gallops, no rubs. ABDOMEN: Globular, soft, nontender, no masses. EXTREMITIES: No edema, no deformities. MEDICATIONS: Medications of 09/25/2017 was reviewed. LABORATORY DATA: Laboratories of 09/23/2017; white count 5.5, hemoglobin 10.6. Sodium 134, potassiu m 4.8, chloride 94, carbon dioxide 26, BUN 42, creatinine 8.27, glucose 74, calcium 8.7. ASSESSMENT AND PLAN: 1. End-stage renal disease, stable. We will continue current Saturday, Saturday, Saturday dialysis reg en. The patient scheduled this afternoon for dialysis, but he declined to do dialysis this morning since he was sitting. He also requested to change his diet to a regular diet. 2. Atrial fibrillation - I am unclear whether this patient is a good candidate for anticoagulation. From my understanding with the daughter, ; however, I will be re-discussing this issue with the daughter again. I left my phone number and left a message with her. 2. Anemia, continuing weekly Epogen. Review of the last Kt/V with this patient suggested he is adeq uately dialyzed with the current dialysis regimen.
[2017-09-25] MEDS: Amlodipine 10 MG TAB PO SCH (17:11)
[2017-09-25] MEDS: Lisinopril 20 MG TAB PO SCH (17:11)
[2017-09-25] MEDS: traZODone HCl 50 MG TAB PO PRN (21:10)
[2017-09-25] MEDS: Atorvastatin Calcium 10 MG TAB PO SCH (21:11)
--- NOTE | 2017-09-25 22:14 | PDOC.PN ---
- Objective Resuscitation Status: Resuscitation Status DNR:Do Not Resuscitate Vital Signs & Weight: Vital Signs (12 hours) Temp Pulse Resp BP BP Pulse Ox 09/25/17 21:10 67 112/66 09/25/17 20:53 98.1 F 67 18 112/66 97 09/25/17 17:11 67 147/78 H 09/25/17 17:10 67 18 147/78 H 97 Weight Weight 212 lb 15.465 oz I&O: 09/24/17 09/25/17 09/26/17 06:59 06:59 06:59 Intake Total 820 70 960 Output Total 4500 Balance -3680 70 960 Result Diagrams: 09/25/17 22:27 09/25/17 22:27 Dx/Plan - Plan (1) Thrombus due to any device, implant or graft Code(s): T85.868A - THROMBOSIS DUE TO OTHER INTERNAL PROSTH DEV/GRFT, INIT Status: Acute s/p [facility] HD catheter placement apprec surg c/s (2) CAD (coronary artery disease) Code(s): I25.10 - ATHSCL HEART DISEASE OF [place] CORONARY ARTERY W/O ANG PCTRS Status: Chronic Qualifiers: Coronary Disease-Associated Artery/Lesion type: [place] artery (3) ESRD (end stage renal disease) on dialysis Code(s): N18.6 - END STAGE RENAL DISEASE; Z99.2 - DEPENDENCE ON RENAL DIALYSIS Status: Chronic era HD with [facility] (4) HLD (hyperlipidemia) Code(s): E78.5 - HYPERLIPIDEMIA, UNSPECIFIED Status: Chronic Qualifiers: Hyperlipidemia type: unspecified Qualified Code(s): E78.5 - Hyperlipidemia , unspecified (5) HTN (hypertension) Code(s): I10 - ESSENTIAL (PRIMARY) HYPERTENSION Status: Chronic Qualifiers: Hypertension type: essential hypertension Qualified Code(s): I10 - Essential (primary) hypertension (6) T2DM (type 2 diabetes mellitus) Status: Chronic Qualifiers: Diabetes mellitus [facility] insulin use: without [facility] use - Plan * dvt prophy - scd's * gi prophy - not indicated * code status DNR
[2017-09-25 22:37] LABS: #Eosinphils 0.3 thou/uL (0.0-0.7); #Lymphocytes 0.6 thou/uL (1.20-3.40); #Monocytes 0.7 thou/uL (0.11-0.59); #Neutrophils 4.7 thou/uL (1.40-6.50); %Basophils 0.2 % (0.0-1.0); %Eosinophils 4.6 % (0.0-10.0); %Lymphocytes 9.8 % (21.0-51.0); %Monocytes 10.4 % (0.0-10.0); %Neutrophils 74.9 % (42.0-75.0); Hemoglobin 11.4 g/dL (14.0-18.0); Mean Corpuscular HGB CONC 31.8 g/dL (32.0-36.0); Mean Corpuscular Hemoglobin 27.2 pg (27.0-31.0); Mean Corpuscular Volume 85.7 fL (78.0-98.0); Mean Platelet Volume 10.3 fL (7.4-10.4); Platelet Count 135 thou/uL (130-400); RBC Distribution Width 16.7 % (11.5-14.5); Red Blood Cell (RBC) Count 4.18 mill/uL (4.70-6.10); White Blood Cell (WBC) Count 6.3 thou/uL (4.8-10.8)
[2017-09-25 22:57] LABS: Anion Gap 17 mmol/L (10-20); BUN (Urea Nitrogen) 23 mg/dL (8.4-25.7); Calc. Creatinine Clearance 14 mL/min (70-130); Calcium 9.2 mg/dL (7.8-10.44); Carbon Dioxide 26 mmol/L (23-31); Chloride 99 mmol/L (98-107); Estimated GFR-MDRD 12; Glucose 145 mg/dL (83-110); Potassium 4.8 mmol/L (3.5-5.1); Sodium 137 mmol/L (136-145)
[2017-09-26] MEDS: Heparin 5,000 UNITS/ML VIAL SC SCH ×3 (08:14→20:55)
[2017-09-26] MEDS: Lisinopril 20 MG TAB PO SCH (08:15)
[2017-09-26] MEDS: Calcitriol 0.25 MCG CAP PO SCH (08:15)
[2017-09-26] MEDS: hydrALAZINE 25 MG TAB PO SCH ×3 (08:16→20:54)
[2017-09-26] MEDS: Amlodipine 10 MG TAB PO SCH (08:16)
[2017-09-26] MEDS: Famotidine 20 MG TAB PO SCH (08:17)
[2017-09-26] MEDS: Calcium Acetate 667 MG CAP PO SCH ×3 (08:17→17:33)
[2017-09-26] MEDS: Clopidogrel Bisulfate 75 MG TAB PO SCH (08:17)
[2017-09-26] MEDS: Carvedilol 6.25 MG TAB PO SCH ×2 (08:17→17:33)
--- NOTE | 2017-09-26 08:18 | ADD-PRG ---
DATE OF SERVICE: 09/25/2017 ADDENDUM: I am at the bedside, supervising his hemodialysis. In addition, I spoke with his daughter regarding the atrial fibrillation. 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 The daughter's name is Delfina.
[2017-09-26] MEDS: Acetaminophen 500 MG TAB PO PRN (08:49)
[2017-09-26] MEDS: Cepastat Lozenges 1 LOZ PO PRN ×3 (11:37→20:54)
--- NOTE | 2017-09-26 12:04 | HP ---
RENAL MEDICINE HISTORY OF PRESENT ILLNESS: Mr. Garcia is an 82-year-old black male with ESRD and [facility] up [facility]. He underwent hemodialysis yesterday without any dif ficulty. He tolerated said treatment. Surgery has dressing the clotted AV fistula. Revision of thi s access is being contemplated. This morning, he is complaining of some throat. In addition, he voi yolis no complaint of chest pain or shortness of breath. PHYSICAL EXAMINATION: VITAL SIGNS: Blood pressure is 151/90, heart rate 72, respiratory rate 20, temperature 98, pulse ox 95%. GENERAL: Awake, alert, comfortable. Not in overt distress. SKIN: Adequate turgor. HEENT: Pinkish conjunctivae, anicteric sclerae. NECK: No neck mass, no carotid bruits, no JVD. CHEST: No deformities. LUNGS: Clear breath sounds, no wheezing, no crackles. HEART: Normal sinus rhythm. No murmurs, no gallops, no rubs. ABDOMEN: Globular, soft, nontender, no masses. EXTREMITIES: No edema. MEDICATIONS: Medications of 09/26/2017 was reviewed. LABORATORY DATA: Laboratories of 09/25/2017; sodium 137, potassium 4.8, chloride 99, carbon dioxide 26, BUN 23, creatinine 5.58, glucose 145, calcium 9.2. White count 6.3, hemoglobin 11.4. ASSESSMENT AND PLAN: 1. Clotted AV fistula - patient is being followed by surgery. Plan is revision of this access. 2. End-stage renal disease, stable. Continuing Saturday, Saturday and Saturday dialysis. Fluid remova l only as tolerated by the patient. 3. Renal osteodystrophy, currently on phosphate binders and on calcitriol. 4. Sore throat - throat lozenges will be given p.r.n. basis. Recheck base met and CBC in a.m.
--- NOTE | 2017-09-26 12:33 | ULT ---
ULTRASOUND DOPPLER DUPLEX VENOUS BILATERAL UPPER EXTREMITIES: (VEIN MAPPING) 09/25/2017 HISTORY: An 82-year-old male with end stage renal disease, for planning of hemodialysis access AV fistula surg dexter. The patient has a thrombosed dialysis graft in the left forearm (surgically placed at another [facility], in another city). TECHNIQUE: Woodruff-scale evaluation with and without compression, color-flow, and spectral analysis of the bilatera l cephalic and basilic veins. Color-flow and spectral analysis evaluation of the extant dialysis graft, at forearm. FINDINGS: There is a loop of dialysis graft in the left forearm. The inflow anastamosis is with a patent brach ial artery at the antecubital fossa. The graft has hyperechoic isaac which are difficult to penetrat e with sound waves, but it is probably completely thrombosed and occluded. The outflow anastamosis i s with a dilated vein is thrombosed and completely occluded, brachial vein, seen in the antecubital r egion. This thrombosed brachial vein remains thrombosed up to the level slightly proximal to the elb ow. Distal to the thrombosis, another vein branch feeds the left brachial vein, such that the more p roximal portion of the left brachial vein is patent. The caliber of the following vessels is given in millimeters. RIGHT: Brachial artery: 3.5 Radial artery: 2.5 Ulnar artery: 1.5 CEPHALIC VEIN Proximal arm: 1 Mid arm: 1 Distal arm: 0.5 Antecubital: 0.5 Proximal forearm: 2 Mid forearm: 1.5 Distal forearm: 1.5 BASILIC VEIN Proximal arm: 7.5 Distal forearm: 2.5 Antecubital: 2.5 Proximal forearm: 1.5 Mid forearm: 1 Distal forearm: 1 LEFT: Brachial artery: 5 Radial artery: 2 Ulnar artery: 2 CEPHALIC VEIN Proximal arm: 3 Mid arm 2.5 Distal arm: 3.5 Antecubital: 4 Proximal forearm: 2.5 Mid forearm: 2.5 Distal forearm: 2.5 BASILIC VEIN Proximal arm: 7.5 Mid arm: 4.5 Distal arm: 4.5 Antecubital: 5 Proximal forearm: 2.5 Mid forearm: 1.5 Distal forearm: 1.5 IMPRESSION: 1. The existing hemodialysis graft in the left forearm is thrombosed and occluded. The thrombosis p ropagates from the outflow tract of the graft into the left brachial vein, to a level slightly proxim al to the elbow. Distal to this, the more proximal portions of the left brachial vein are patent and clear, supplied by another vein. 2. The basilic vein in the left arm has consistently the largest caliber greater than 3 mm. POS: [facility]
--- NOTE | 2017-09-26 15:47 | PDOC.PN ---
- Subjective Encounter Start Date: 09/26/17 Encounter Start Time: 15:44 Subjective: nsg notes rev, alix ovn, no new c/o. recalls and discusses extensively how -: his while on HD and his experiences around the initial -: HD graft placement. No c/o, no SOB/ pain - Objective Resuscitation Status: Resuscitation Status DNR:Do Not Resuscitate Vital Signs & Weight: Vital Signs (12 hours) Temp Pulse Resp BP BP Pulse Ox 09/26/17 14:12 72 110/63 09/26/17 08:24 98.0 F 72 20 95 09/26/17 08:17 151/90 H 09/26/17 08:16 72 151/90 H 09/26/17 08:15 151/90 H 09/26/17 08:13 95 09/26/17 07:50 98.0 F 72 20 151/90 H 90 L Weight Weight 212 lb 15.465 oz I&O: 09/25/17 09/26/17 09/27/17 06:59 06:59 06:59 Intake Total 70 1360 Balance 70 1360 Result Diagrams: 09/25/17 22:27 09/25/17 22:27 Phys Exam - Physical Examination Constitutional: NAD seated in hospital chair HEENT: moist MMs Respiratory: no wheezing, no rales, no rhonchi, clear to auscultation bilateral Cardiovascular: RRR, no significant murmur, no rub Gastrointestinal: soft, positive bowel sounds Dx/Plan - Plan (1) Thrombus due to any device, implant or graft Code(s): T85.868A - THROMBOSIS DUE TO OTHER INTERNAL PROSTH DEV/GRFT, INIT Status: Acute s/p [facility] HD catheter placement apprec surg c/s pt reports having undergone vein mapping today and that his dtr is wanting to speak with the surgeon here after she (dtr) speaks with the surgeon who did the initial graft placement (2) CAD (coronary artery disease) Code(s): I25.10 - ATHSCL HEART DISEASE OF [place] CORONARY ARTERY W/O ANG PCTRS Status: Chronic Qualifiers: Coronary Disease-Associated Artery/Lesion type: [place] artery (3) ESRD (end stage renal disease) on dialysis Code(s): N18.6 - END STAGE RENAL DISEASE; Z99.2 - DEPENDENCE ON RENAL DIALYSIS Status: Chronic era HD with [facility] (4) HLD (hyperlipidemia) Code(s): E78.5 - HYPERLIPIDEMIA, UNSPECIFIED Status: Chronic Qualifiers: Hyperlipidemia type: unspecified Qualified Code(s): E78.5 - Hyperlipidemia , unspecified (5) HTN (hypertension) Code(s): I10 - ESSENTIAL (PRIMARY) HYPERTENSION Status: Chronic Qualifiers: Hypertension type: essential hypertension Qualified Code(s): I10 - Essential (primary) hypertension (6) T2DM (type 2 diabetes mellitus) Status: Chronic Qualifiers: Diabetes mellitus keno terminal operator insulin use: without keno terminal operator use - Plan * dvt prophy - scd's * gi prophy - not indicated * code status DNR greater than 30 min spent at bedside with the patient Review of Systems - Medications/Allergies Allergies/Adverse Reactions: Allergies Allergy/AdvReac Type Severity Reaction Status Date / Time aspirin Allergy Verified 09/20/17 12:07 codeine Allergy Verified 09/20/17 12:07 Medications: Current Medications Acetaminophen (Tylenol) 1,000 mg PO Q6H PRN PRN Reason: Moderate to Severe Pain (6-10) Last Admin: 09/26/17 08:49 Dose: 1,000 mg Amlodipine Besylate (Norvasc) 10 mg PO DAILY [facility] Last Admin: 09/26/17 08:16 Dose: 10 mg Atorvastatin Calcium (Lipitor) 10 mg PO [facility] Last Admin: 09/25/17 21:11 Dose: 10 mg Benzonatate (Tessalon) 100 mg PO Q4H PRN PRN Reason: Cough Last Admin: 09/23/17 21:00 Dose: 100 mg Calcitriol (Rocaltrol) 0.5 mcg PO DAILY [facility] Last Admin: 09/26/17 08:15 Dose: 0.5 mcg Calcium Acetate (Phoslo) 667 mg PO TID-[facility] Last Admin: 09/26/17 11:37 Dose: 667 mg Carvedilol (Coreg) 6.25 mg PO BID-[facility] Last Admin: 09/26/17 08:17 Dose: 6.25 mg Cholecalciferol (Vitamin D3) 5,000 units PO DAILY [facility] Last Admin: 09/26/17 08:16 Dose: 5,000 units Clopidogrel Bisulfate (Plavix) 75 mg PO DAILY [facility] Last Admin: 08/16/18 08:17 Dose: 75 mg Dextrose/Water (Dextrose 50%) 25 gm SLOW IVP PRN PRN PRN Reason: Hypoglycemia Epoetin Dami (Procrit) 7,500 units SC Q7D@1700 [facility] Last Admin: 09/21/17 17:47 Dose: 7,500 units Famotidine (Pepcid) 20 mg PO DAILY [facility] Last Admin: 09/26/17 08:17 Dose: 20 mg Glucagon (Glucagon) 1 mg IM PRN PRN PRN Reason: Hypoglycemia Heparin Sodium (Porcine) (Heparin) 5,000 units SC TID [facility] Last Admin: 09/26/17 14:12 Dose: 5,000 units Hydralazine HCl (Apresoline) 25 mg PO TID [facility] Last Admin: 09/26/17 14:12 Dose: 25 mg Dextrose/Water (D5w) 1,000 mls @ 0 mls/hr IV .Q0M PRN PRN Reason: Hypoglycemia Insulin Human Lispro (Humalog) 0 units SC .MILD SLIDING SCALE PRN PRN Reason: Mild Correctional Scale Insulin Human Lispro (Humalog) 0 units SC .BEDTIME SLIDING SC PRN PRN Reason: Bedtime Correctional Scale Lisinopril (Zestril) 40 mg PO DAILY [facility] Last Admin: 09/26/17 08:15 Dose: 40 mg Sodium Chloride (Flush - Normal Saline) 10 ml IVF PRN PRN PRN Reason: Saline Flush Last Admin: 09/22/17 07:56 Dose: 10 ml Throat Lozenges (Cepastat Lozenges) 1 isael PO Q2H PRN PRN Reason: Sore Throat Last Admin: 09/26/17 11:37 Dose: 1 isael Trazodone HCl (Desyrel) 50 mg PO HSPRN PRN PRN Reason: Insomnia Last Admin: 09/25/17 21:10 Dose: 50 mg
--- NOTE | 2017-09-26 19:00 | PDOC.GSPN ---
Surgery Progress Note: Subj - Subjective Narrative: Vein mapping was done today and he has a potentially usable left cephalic forearm vein and also a good caliber basilic vein. He will follow-up in my clinic after discharge to schedule an attempted fistula. Surgery Progress Note: Obj - Vital signs Vital signs: Vital Signs - Most Recent Temp Pulse Resp BP Pulse Ox 97.9 F 57 L 18 110/63 93 L 09/26/17 16:00 09/26/17 16:00 09/26/17 16:00 09/26/17 17:33 09/26/17 16:00 Surgery Progress Note: Results - Labs Result Diagrams: 09/25/17 22:27 09/25/17 22:27
[2017-09-26] MEDS: Atorvastatin Calcium 10 MG TAB PO SCH (20:54)
[2017-09-26] MEDS: traZODone HCl 50 MG TAB PO PRN (22:59)
[2017-09-27] MEDS: Acetaminophen 500 MG TAB PO PRN ×2 (02:56→07:32)
[2017-09-27] MEDS: Calcium Acetate 667 MG CAP PO SCH ×3 (07:29→17:10)
[2017-09-27] MEDS: Carvedilol 6.25 MG TAB PO SCH ×2 (07:29→17:10)
[2017-09-27] MEDS: Amlodipine 10 MG TAB PO SCH (09:00)
[2017-09-27] MEDS: Heparin 5,000 UNITS/ML VIAL SC SCH ×2 (09:00→14:25)
[2017-09-27] MEDS: Lisinopril 20 MG TAB PO SCH (09:00)
[2017-09-27] MEDS: hydrALAZINE 25 MG TAB PO SCH ×2 (09:00→14:24)
[2017-09-27 09:08] LABS: #Eosinphils 0.3 thou/uL (0.0-0.7); #Lymphocytes 0.8 thou/uL (1.20-3.40); #Monocytes 0.5 thou/uL (0.11-0.59); #Neutrophils 4.1 thou/uL (1.40-6.50); %Basophils 0.6 % (0.0-1.0); %Eosinophils 5.7 % (0.0-10.0); %Lymphocytes 13.5 % (21.0-51.0); %Monocytes 8.6 % (0.0-10.0); %Neutrophils 71.6 % (42.0-75.0); Hemoglobin 10.8 g/dL (14.0-18.0); Mean Corpuscular HGB CONC 31.7 g/dL (32.0-36.0); Mean Corpuscular Hemoglobin 27.1 pg (27.0-31.0); Mean Corpuscular Volume 85.6 fL (78.0-98.0); Mean Platelet Volume 10.3 fL (7.4-10.4); Platelet Count 133 thou/uL (130-400); RBC Distribution Width 16.4 % (11.5-14.5); Red Blood Cell (RBC) Count 3.98 mill/uL (4.70-6.10); White Blood Cell (WBC) Count 5.7 thou/uL (4.8-10.8)
[2017-09-27 09:33] LABS: Anion Gap 19 mmol/L (10-20); BUN (Urea Nitrogen) 48 mg/dL (8.4-25.7); Calc. Creatinine Clearance 9 mL/min (70-130); Calcium 9.3 mg/dL (7.8-10.44); Carbon Dioxide 25 mmol/L (23-31); Chloride 97 mmol/L (98-107); Estimated GFR-MDRD 7; Glucose 161 mg/dL (83-110); Potassium 5.2 mmol/L (3.5-5.1); Sodium 136 mmol/L (136-145)
[2017-09-27] MEDS ORDERED: Fentanyl 100 MCG/2 ML VIAL ONE (09:42)
[2017-09-27] MEDS ORDERED: Heparin 1,000 UNITS/ML VIAL ONE (11:11)
[2017-09-27] MEDS: Calcitriol 0.25 MCG CAP PO SCH (13:15)
[2017-09-27] MEDS: Famotidine 20 MG TAB PO SCH (13:15)
[2017-09-27] MEDS: Clopidogrel Bisulfate 75 MG TAB PO SCH (13:16)
[2017-09-27 17:09] VITALS: BP 115/68; TEMP 98
== END 2017-09-27 17:58 | disposition home or self-care (01) | DRG 314 ==
LOC: ERS 13:25 → OBSVTOIN 18:51 → T4-A 18:51 → 2NO 09-21 12:54 → T4-A 09-21 15:39
PROVIDERS: ADMIT Family Medicine; ATTEND Family Medicine
PROC: 0JHL3XZ Insertion of Tunneled Vascular Access Device into Right Upper Leg Subcutaneous Tissue and Fascia, Percutaneous Approach (ICD-10-PCS; principal; 2017-09-20)
PROC: 02HV33Z Insertion of Infusion Device into Superior Vena Cava, Percutaneous Approach (ICD-10-PCS; 2017-09-20)
PROC: 5A1D70Z Performance of Urinary Filtration, Intermittent, Less than 6 Hours Per Day (ICD-10-PCS; 2017-09-21)
PROC: 5A1D70Z Performance of Urinary Filtration, Intermittent, Less than 6 Hours Per Day (ICD-10-PCS; 2017-09-23)
PROC: 5A1D70Z Performance of Urinary Filtration, Intermittent, Less than 6 Hours Per Day (ICD-10-PCS; 2017-09-25)
PROC: 5A1D70Z Performance of Urinary Filtration, Intermittent, Less than 6 Hours Per Day (ICD-10-PCS; 2017-09-27)
DX: T82.868A Thrombosis due to vascular prosthetic devices, implants and grafts, initial encounter (principal); N18.6 End stage renal disease; N17.9 Acute kidney failure, unspecified; N25.81 Secondary hyperparathyroidism of renal origin; I12.0 Hypertensive chronic kidney disease with stage 5 chronic kidney disease or end stage renal disease; N25.0 Renal osteodystrophy; I48.2 Chronic atrial fibrillation; D63.1 Anemia in chronic kidney disease; E83.39 Other disorders of phosphorus metabolism; I25.10 Atherosclerotic heart disease of native coronary artery without angina pectoris; K21.9 Gastro-esophageal reflux disease without esophagitis; G47.00 Insomnia, unspecified; Z66 Do not resuscitate; Z99.2 Dependence on renal dialysis; Z88.6 Allergy status to analgesic agent; Z88.5 Allergy status to narcotic agent; Z79.02 Long term (current) use of antithrombotics/antiplatelets; Z79.899 Other long term (current) drug therapy; Y83.8 Other surgical procedures as the cause of abnormal reaction of the patient, or of later complication, without mention of misadventure at the time of the procedure
CPT/HCPCS: 36415; 36416; 36901; 71045; 80048; 80053; 83970; 84100; 85025; 90935; 93005; 93010; 93970; 99285; A4216; C1752; C1769; G0257; G0365; G8978-GP-CL; G8979-GP-CJ; J1642; J1644; J2001; J2250; J2704; J2720; J2997; J3010; Q4081

== ENCOUNTER → 2017-09-20 | Day surgery (SDC) | payer MEDICARE, MEDICAID ==
[~2017-09-20] MED LIST: Activase 2 MG VIAL CATH SCH; Heparin 1,000 UNITS/ML VIAL ONE; Prevnar 13-Val Conj/PF 0.5 ML SYRINGE IM ONE; Sterile Water 10 ML VIAL IVP SCH
[2017-09-20 13:47] VITALS: BP 125/78; TEMP 98; BMI 29.2
--- NOTE | 2017-09-20 14:45 | SPC ---
LEFT UPPER EXTREMITY ARTERIOVENOUS FISTULOGRAM: Date: 09/20/17 HISTORY: Clotted left upper extremity arteriovenous dialysis fistula. Patient was noted to have left upper ext remity arteriovenous dialysis fistula earlier in the week, and patient underwent thrombolysis and dec lot procedure at an outside facility with reported flow post procedure. Patient returns today with a clotted left upper extremity arteriovenous dialysis fistula and thrombolysis and declot of the fistu la was requested. FLUOROSCOPY: Total fluoroscopy time was 10 minutes with a total dose of 1,612 mGy*cm^2. TECHNIQUE: The procedure, including the risks and complications, were explained to the patient and informed cons ent was obtained. The patient was placed on the angiography table in supine position. The left upper extremity region of the fistula was meticulously prepped and draped in the usual sterile fashion. Skin and subcutaneous tissues overlying the left upper extremity arteriovenous graft were infiltrated with buffered 1% lidocaine for local anesthesia. Short 6 Georgian sheaths were placed, one directed in a venous direction and second directed in arterial direction. A .035 Glidewire and 5 Georgian Berenstein catheter were then manipulated through the medial fistula , more medially located sheath, and the catheter was manipulated further distally. Glidewire was lizzeth jewell with demonstration of flow. Fistulogram was performed, but this demonstrated that the tip of the catheter was in the artery and the more lateral limb of the graft was the arterial limb. This demonst rated no flow throughout the fistula. As a result, the catheter was withdrawn into the fistula. A second .035 Glidewire, as well as 5 Georgian Berenstein catheter, were manipulated through the she ath, directed in the venous direction. After multiple attempts, the Glidewire or catheter were unable to be manipulated through the venous anastomosis. The catheter tip was positioned near the level of the venous anastomosis and contrast injection was performed. This demonstrated a clotted left upper e xtremity fistula without venous outflow. No obvious venous outflow could be appreciated with injectio n of contrast. Again, attempts at manipulating the Glidewire through the region of the anastomosis we re unsuccessful. At this time, the procedure was then terminated. The sheaths were removed and hemost asis was achieved with direct pressure. The patient tolerated the procedure well and without immediate complication. IMPRESSION: 1. Severe stenosis venous outflow with clotted left upper extremity arteriovenous dialysis graft. Co ntrast injection of the artery does demonstrate flow in the artery with occlusion beginning at the ar teriovenous anastomosis. 2. Thrombolysis and SOCIOLOGY INSTRUCTOR was unable to be performed as the Glidewire was unable to be manipulated dis jatinder to the venous anastomosis. These findings were discussed with Dr. Son. CODE CR. POS: [facility]
--- NOTE | 2017-09-20 18:29 | CON ---
HISTORY OF PRESENT ILLNESS: Mr. Garcia is an 82-year-old black male with ESRD - [facility] and admitted for a clotted AV fistula. The patient clotted his AV fistula 2 days a go. He was [facility] and this was opened. However, the day after the said fistulogr am, the patient's access (00:26). He was seen here at [place] for a second opinion. AV fis tulogram was done, but again there was no success in opening the access. He is now admitted for furt her management. I did discuss the case with the ER physician. We will consult Dr. Meyer for possib le surgical thrombectomy and/or placement of a cuffed hemodialysis catheter. We are essentially katie rodgers consulted for his maintenance hemodialysis. REVIEW OF SYSTEMS: No chest pain, no shortness of breath, no nausea, no vomiting, no diarrhea. Posi tive for decreased memory, no abdominal pain, no headache, no diplopia, no fever or chills, no gross hematuria, no dysuria, no urinary frequency, no abdominal pain, no hematochezia, no melena. HOME MEDICATIONS: Includes atorvastatin 10 mg tab at bedtime, PhosLo 667 mg 1 tab t.i.d. with meals, Coreg 6.25 mg twice a day, Dulcolax p.r.n., ferrous gluconate 324 mg once a day, hydralazine 25 mg t ab t.i.d., Lasix 80 mg tab q. day, lisinopril 40 mg tab once a day, Norvasc 10 mg tab once a day, Pep dianne 20 mg tab q. day, Plavix 75 mg once a day, Robitussin p.r.n., trazodone 50 mg at bedtime, vitamin D3 of 5000 international units 1 tab q. day. PAST MEDICAL HISTORY: Coronary artery disease, hypertension, ESRD from hypertensive nephropathy, hyp erlipidemia, acid reflux, hyperphosphatemia, PAST SURGICAL HISTORY: Status post cuffed hemodialysis catheter placement, status post AV fistula pl acement, status post AV fistulogram. SOCIAL HISTORY: The patient is , currently in retirement, [facility] in [place]. Origin ally from [place]. He is a retired farm equipment mechanic. Education, 10th grade. Two children. No IV drug abus e. Status post smoking in the past. Alcohol, none. ALLERGIES: ASPIRIN and CODEINE. TRAUMA: None. IMMUNIZATIONS: Up to date. HOSPITALIZATION: Please see past medical history. FAMILY HISTORY: No family history of ESRD. PHYSICAL EXAMINATION: VITAL SIGNS: Blood pressure is 150/70, heart rate 70. GENERAL: Noted to be awake, alert, comfortable, obese, confused. SKIN: Adequate turgor. HEENT: Pinkish conjunctivae, anicteric sclerae. NECK: No neck mass, no carotid bruits, no JVD. CHEST: No deformities. LUNGS: Decreased breath sounds. No wheezing, no crackles. HEART: Normal sinus rhythm. No murmur, no gallops, no rubs. ABDOMEN: Globular, soft, nontender, no masses. EXTREMITIES: No edema, no deformities. LABORATORY DATA: Laboratories of 09/20/2017, white count 6.4, hemoglobin 12.2. Sodium 137, potassiu m 5, chloride 95, carbon dioxide 28, BUN 50, creatinine 8.75, glucose 105, calcium 9.4, AST 14, ALT 8 , albumin 4.3. ASSESSMENT AND PLAN: 1. End-stage renal disease - the patient will be resumed on regular hemodialysis 3 times a week once the access is open or once he has a temporary dialysis catheter. 2. Clotted AV fistula - unsuccessful fistulogram done today. He also had a fistulogram done 2 days ago, which opened up temporarily, but subsequently reclosed. He may have a surgical problem and for that reason, we will be consulting Surgery, Dr. Meyer, for possible AV fistula revision and/or place ment of a cuffed hemodialysis catheter. I do not see any indication for any emergent hemodialysis to day. We will resume the patient's hemodialysis regimen once the access is available. Review of the last Kt/V suggests he is adequately dialyzed with the current dialysis regimen. We will be checking a base met, CBC, intact PTH and phosphorus in a.m.
== END ==
LOC: SPEC 10:59
PROVIDERS: ATTEND Internal Medicine Nephrology
PROC: 03CC3ZZ Extirpation of Matter from Left Radial Artery, Percutaneous Approach (ICD-10-PCS; principal; 2017-09-20)
DX: T82.868A Thrombosis due to vascular prosthetic devices, implants and grafts, initial encounter (principal); I12.0 Hypertensive chronic kidney disease with stage 5 chronic kidney disease or end stage renal disease; N18.6 End stage renal disease; I25.10 Atherosclerotic heart disease of native coronary artery without angina pectoris; E78.5 Hyperlipidemia, unspecified; E83.39 Other disorders of phosphorus metabolism; K21.9 Gastro-esophageal reflux disease without esophagitis; Z53.8 Procedure and treatment not carried out for other reasons; Z79.02 Long term (current) use of antithrombotics/antiplatelets; Z79.84 Long term (current) use of oral hypoglycemic drugs; Z79.899 Other long term (current) drug therapy; Z88.5 Allergy status to narcotic agent; Z88.8 Allergy status to other drugs, medicaments and biological substances; Z99.2 Dependence on renal dialysis
CPT/HCPCS: 36901; A4216; J1644; J2997

== ENCOUNTER 2017-10-03 07:50 | Day surgery (SDC) | payer MEDICARE, MEDICAID ==
[2017-10-01 13:08] VITALS: BMI 29.5
[2017-10-03] MEDS ORDERED: Protamine Sulfate 50 MG/5 ML VIAL ONE (09:41)
[2017-10-03] MEDS ORDERED: Bupivacaine/Epinephrine 0.25% 30 ML VIAL ONE (09:41)
[2017-10-03] MEDS ORDERED: Heparin 5,000 UNITS/ML VIAL ONE (09:41)
[2017-10-03] MEDS ORDERED: Lidocaine 2% 10 ML INJ ONE (09:41)
[2017-10-03] MEDS ORDERED: Fentanyl 100 MCG/2 ML VIAL ONE ×2 (10:03→10:44)
[2017-10-03] MEDS ORDERED: CEFAZOLIN/Water 2 GM/20 ML SYRINGE ONE (10:41)
[2017-10-03] MEDS ORDERED: Midazolam HCl 2 mg/2 ml Vial ONE (10:43)
[2017-10-03] MEDS ORDERED: Propofol 500 MG/50 ML VIAL ONE (10:44)
[2017-10-03] MEDS ORDERED: Bupivacaine HCl 0.5%/Epinephrine 1:200,000/PF 30 ml Vial ONE (10:47)
--- NOTE | 2017-10-03 10:58 | RAD ---
PA AND LATERAL CHEST: INDICATIONS: Preop exam. COMPARISON: 09/24/2017 FINDINGS: A dialysis catheter involving the left internal jugular, projecting to the SVC, is stable. Cardiomeg anushka and pulmonary vascular congestion persist. Small bilateral pleural effusions, right greater than left, are similar appearing. No acute air space consolidation or pneumothorax is evident. No acute osseous abnormality is evident. IMPRESSION: 1. Stable examination of the chest, most consistent with either congestive heart failure or volume o verload. 2. Stable dialysis catheter. POS: [facility]
[2017-10-03] MEDS ORDERED: PROPOFOL 200 MG/20 ML VIAL ONE (11:02)
[2017-10-03] MEDS ORDERED: Heparin 10,000 UNITS/ 10 ML VIAL ONE ×2 (11:02→16:07)
[2017-10-03 11:04] LABS: #Eosinphils 0.3 thou/uL (0.0-0.7); #Monocytes 0.8 thou/uL (0.11-0.59); #Neutrophils 4.8 thou/uL (1.40-6.50); %Basophils 0.4 % (0.0-1.0); %Eosinophils 4.1 % (0.0-10.0); %Lymphocytes 14.5 % (21.0-51.0); %Monocytes 11.8 % (0.0-10.0); %Neutrophils 69.1 % (42.0-75.0); Hemoglobin 10.8 g/dL (14.0-18.0); Mean Corpuscular HGB CONC 31.4 g/dL (32.0-36.0); Mean Corpuscular Hemoglobin 26.7 pg (27.0-31.0); Mean Corpuscular Volume 85.3 fL (78.0-98.0); Mean Platelet Volume 9.2 fL (7.4-10.4); Platelet Count 169 thou/uL (130-400); RBC Distribution Width 16.2 % (11.5-14.5); Red Blood Cell (RBC) Count 4.05 mill/uL (4.70-6.10)
[2017-10-03 11:22] LABS: Anion Gap 21 mmol/L (10-20); BUN (Urea Nitrogen) 50 mg/dL (8.4-25.7); Calc. Creatinine Clearance 10 mL/min (70-130); Calcium 9.1 mg/dL (7.8-10.44); Carbon Dioxide 27 mmol/L (23-31); Chloride 99 mmol/L (98-107); Estimated GFR-MDRD 8; Glucose 106 mg/dL (83-110); Potassium 5.5 mmol/L (3.5-5.1); Sodium 141 mmol/L (136-145)
--- NOTE | 2017-10-11 15:33 | PDOC.OP ---
Operative Note - Operative Note Operative Note: PROCEDURE: Left brachiocephalic AV fistula SURGEON: Lexus Celeste M.D. DATE OF PROCEDURE: 10/03/2017 PREOPERATIVE DIAGNOSIS: Renal failure POSTOPERATIVE DIAGNOSIS: Renal failure HISTORY: Patient with end-stage renal failure dependent on dialysis with thrombosed left forearm AV graft. He requires a new fistula or graft for long- term access. He is unwilling to have any access on the right arm. PROCEDURE IN DETAIL: After informed consent was obtained and appropriate preoperative antibiotics administered, the patient was taken to the operating room and placed in the supine position and monitored anesthesia care was administered. A preoperative block had been performed by Anesthesia and the adequacy of block was confirmed. The arm was prepped and draped in a standard sterile fashion and an incision made between the palpable cephalic vein and radial artery. Dissection was carried out to the cephalic vein, which appeared to be of adequate quality and caliber to support a fistula. This was dissected free circumferentially, ligated, and divided distally, and spatulated with Carrion scissors. This was interrogated with cardiac dilators but had a stricture or occlusion in the proximal forearm. Another branch of the cephalic vein was identified extending dorsally onto the hands and the counterincision was made over this vein. This was dissected free circumferentially and appeared adequate for dialysis access. This was ligated and divided distally marked for orientation and spatulated. This vein was serially interrogated with cardiac dilators and easily accepted up to a 3mm cardiac dilator. This was flushed with heparinized saline and clamped with a bulldog clamp. Taking care to maintain correct orientation the vein was then tunneled from the dorsal incision to the incision near the radial artery. The radial artery was then dissected free and examined was found to be severely calcified and inadequate for creation of fistula. Attention was then turned to the antecubital veins. An incision was made between the antecubital vein and the palpable brachial artery and dissection carried out to the antecubital vein. The outside machinist helper was identified and found to be of adequate quality and caliber to support a fistula. This was ligated distally and spatulated and serially interrogated with cardiac dilators. Cardiac dilator easily passed up into the upper arm cephalic vein which except up to a 3 mm dilator without difficulty. The vein was flushed with heparinized saline and clamped and the brachial artery dissected free circumferentially just proximal to the anastomosis with the patient's loop forearm graft. This appeared to have scattered calcified classic spent was much softer and appeared suitable for dialysis fistula creation. Heparin was administered systemically and allowed to circulate for 3 minutes following which the brachial artery was clamped proximally and distally. An anterior arteriotomy was created with an 11 blade scalpel and extended with Carrion scissors. An end-to-side anastomosis created with a running 6-0 Prolene suture with excellent technical result. Prior to tying down the anastomosis, the inflow was released to flush the anastomosis. Flow was established first through the fistula and then through the distal radial artery. Hemostasis at the site was confirmed, and an excellent thrill was felt in the cephalic vein outflow and an excellent bruit was heard with Doppler as well up to the shoulder. Hemostasis at the operative site was again confirmed. All 3 incisions were closed with a running 3-0 subcutaneous and running 4-0 subcuticular Monocryl sutures. Dermabond dressings were placed and the patient was taken to the recovery room in good condition. Estimated blood loss was minimal. There were no complications. There were no specimens.
== END 2017-10-03 16:30 ==
LOC: SDC 07:50
PROVIDERS: ATTEND Surgery
PROC: 03180ZD Bypass Left Brachial Artery to Upper Arm Vein, Open Approach (ICD-10-PCS; principal; 2017-10-03)
DX: T82.868A Thrombosis due to vascular prosthetic devices, implants and grafts, initial encounter (principal); N18.6 End stage renal disease; Z79.02 Long term (current) use of antithrombotics/antiplatelets; Z79.899 Other long term (current) drug therapy; Z88.5 Allergy status to narcotic agent; Z88.8 Allergy status to other drugs, medicaments and biological substances
CPT/HCPCS: 71046; 80048; 85025; 96374; J0131; J0670; J1644; J2250; J2704; J2720; J3010

== ENCOUNTER 2017-10-07 10:30 | Emergency (ER) | payer MEDICARE, MEDICAID ==
[2017-10-07 10:59] LABS: #Eosinphils 0.3 thou/uL (0.0-0.7); #Lymphocytes 0.5 thou/uL (1.20-3.40); #Monocytes 0.6 thou/uL (0.11-0.59); #Neutrophils 4.8 thou/uL (1.40-6.50); %Basophils 0.5 % (0.0-1.0); %Eosinophils 5.3 % (0.0-10.0); %Lymphocytes 8.4 % (21.0-51.0); %Monocytes 9.6 % (0.0-10.0); %Neutrophils 76.1 % (42.0-75.0); Hemoglobin 10.9 g/dL (14.0-18.0); Mean Corpuscular HGB CONC 32.4 g/dL (32.0-36.0); Mean Corpuscular Hemoglobin 26.9 pg (27.0-31.0); Mean Corpuscular Volume 83.1 fL (78.0-98.0); Mean Platelet Volume 9.4 fL (7.4-10.4); Platelet Count 165 thou/uL (130-400); RBC Distribution Width 16.4 % (11.5-14.5); Red Blood Cell (RBC) Count 4.06 mill/uL (4.70-6.10); White Blood Cell (WBC) Count 6.2 thou/uL (4.8-10.8)
[2017-10-07 11:20] LABS: ALT (SGPT) Less than 7 U/L (8-55); AST (SGOT) 17 U/L (5-34); Albumin 4.3 g/dL (3.4-4.8); Alkaline Phosphatase 109 U/L (40-150); Anion Gap 23 mmol/L (10-20); BUN (Urea Nitrogen) 38 mg/dL (8.4-25.7); Bilirubin, Total 0.7 mg/dL (0.2-1.2); Calc. Creatinine Clearance 0 mL/min (70-130); Calcium 9.3 mg/dL (7.8-10.44); Carbon Dioxide 26 mmol/L (23-31); Chloride 96 mmol/L (98-107); Estimated GFR-MDRD 11; Globulin 3.4 g/dL (2.4-3.5); Glucose 81 mg/dL (83-110); Potassium 4.7 mmol/L (3.5-5.1); Protein, Total 7.7 g/dL (5.8-8.1); Sodium 140 mmol/L (136-145)
[2017-10-07 11:24] LABS: Troponin I 0.048 ng/mL (< 0.028)
--- NOTE | 2017-10-07 13:06 | CT ---
CT OF THE ABDOMEN AND PELVIS WITHOUT IV CONTRAST: INDICATION: Abdominal pain for 1 month. COMPARISON: None. FINDINGS: There are small bilateral pleural effusions, right greater than left, with bibasilar atelectasis. There are tiny subcentimeter hypodensities seen scattered throughout the right and left hepatic lobe, difficult to characterize due to their size. There are bilateral renal cysts. One of the largest is seen within the superior pole of the right ki dney measuring 3.8 cm. There is an exophytic hyperdense region measuring 1.6 cm off the posterior as pect of the left mid kidney that cannot be further characterized. There is a small umbilical hernia containing a loop of small bowel without evidence of obstruction or strangulation. The prostate is enlarged measuring 5.9 cm. There is a moderate amount of retained stool within the colon. There is a normal appendix in the right lower quadrant. There is no evidence of bowel obstruction. Scattered degenerative and osteoarthritic change. IMPRESSION: 1. Small bilateral pleural effusions and bibasilar atelectasis. 2. Hepatic hypodensities incompletely characterized. Followup CT of the abdomen utilizing a hemangi staci protocol is recommended. If the patient has end stage renal disease, this would be coordinated p rior to the patient's dialysis. 3. Umbilical hernia containing loop of unobstructed small bowel. 4. Bilateral renal hypodensities persist. There is 1 exophytic hyperdense lesion involving the post erior aspect of the left kidney that requires further evaluation with renal ultrasound. This could a lso be further characterized with contrast-enhanced CT examination of the abdomen recommended above. 5. Prostate enlargement. 6. Other chronic findings as above. POS: [facility]
--- NOTE | 2017-10-09 14:51 | EKG ---
Test Reason : Blood Pressure : / mmHG Vent. Rate : 075 BPM Atrial Rate : 047 BPM P-R Int : 000 ms QRS Dur : 160 ms QT Int : 470 ms P-R-T Axes : 000 -73 083 degrees QTc Int : 524 ms Atrial fibrillation Left axis deviation Right bundle branch block T wave abnormality, consider lateral ischemia Abnormal ECG Confirmed by LORI DUNN ([id number]), production editor JUANA PORTILLO ([id number]) on 10/09/2017 2:51:10 PM Referred By: Confirmed By:LORI DUNN
== END 2017-10-07 12:07 | disposition home or self-care (01) ==
LOC: ERS 10:30
DX: R10.9 Unspecified abdominal pain (principal); E11.9 Type 2 diabetes mellitus without complications; I10 Essential (primary) hypertension
CPT/HCPCS: 36415; 74176; 80053; 82553; 84484; 85025; 93005

== ENCOUNTER 2018-02-09 17:06 | Inpatient (IN) | payer MEDICARE, MEDICAID ==
[~2018-02-09 17:06] MED LIST changes: -Activase 2 MG VIAL CATH SCH; -Heparin 1,000 UNITS/ML VIAL ONE; +ISOVUE-370 76%-LOCM 1 ML ONE; -Prevnar 13-Val Conj/PF 0.5 ML SYRINGE IM ONE; -Sterile Water 10 ML VIAL IVP SCH
--- NOTE | 2018-02-09 17:49 | RAD ---
ONE VIEW CHEST: History: Chest pain. Comparison: 09-24-17 FINDINGS: Re-demonstration of left sided HemoSplit dialysis catheter. There is cardiomegaly and pulmonary vascu lar congestion. No significant pleural fluid. There are patchy interstitial and alveolar opacities which are presumed to be due to edema or infiltrate. IMPRESSION: 1. Congestive heart failure. 2. Superimposed infiltrate cannot be excluded. Continued surveillance. POS: [facility]
[2018-02-09] MEDS ORDERED: Acetaminophen 500 MG TAB ONE (18:05)
[2018-02-09 19:18] LABS: #Eosinphils 0.2 thou/uL (0.0-0.7); #Monocytes 1.2 thou/uL (0.11-0.59); #Neutrophils 8.5 thou/uL (1.40-6.50); %Basophils 0.3 % (0.0-1.0); %Eosinophils 1.7 % (0.0-10.0); %Lymphocytes 9.3 % (21.0-51.0); %Monocytes 10.7 % (0.0-10.0); %Neutrophils 78.1 % (42.0-75.0); Hemoglobin 11.9 g/dL (14.0-18.0); Mean Corpuscular HGB CONC 30.7 g/dL (32.0-36.0); Mean Corpuscular Hemoglobin 26.1 pg (27.0-31.0); Mean Platelet Volume 10.7 fL (7.4-10.4); Platelet Count 193 thou/uL (130-400); RBC Distribution Width 19.1 % (11.5-14.5); Red Blood Cell (RBC) Count 4.55 mill/uL (4.70-6.10); White Blood Cell (WBC) Count 10.9 thou/uL (4.8-10.8)
[2018-02-09 19:33] LABS: Anion Gap 27 mmol/L (10-20); BUN (Urea Nitrogen) 65 mg/dL (8.4-25.7); Calc. Creatinine Clearance 0 mL/min (70-130); Carbon Dioxide 22 mmol/L (23-31); Chloride 92 mmol/L (98-107); Estimated GFR-MDRD 6; Sodium 134 mmol/L (136-145)
[2018-02-09 19:34] LABS: ALT (SGPT) 10 U/L (8-55); AST (SGOT) 22 U/L (5-34); Albumin 4.1 g/dL (3.4-4.8); Alkaline Phosphatase 108 U/L (40-150); Bilirubin, Total 0.7 mg/dL (0.2-1.2); Calcium 8.7 mg/dL (7.8-10.44); Globulin 4.3 g/dL (2.4-3.5); Glucose 96 mg/dL (83-110); Protein, Total 8.4 g/dL (5.8-8.1)
[2018-02-09 19:38] LABS: Potassium 7.1 mmol/L (3.5-5.1)
[2018-02-09 19:54] LABS: CKMB 3.5 ng/mL (0-6.6)
[2018-02-09] MEDS ORDERED: Calcium Gluc 4.6 MEQ/10 ML (100 MG/ML) ONE (20:19)
[2018-02-09] MEDS ORDERED: Insulin Regular 300 UNITS/3 ML VIAL ONE (20:19)
[2018-02-09] MEDS ORDERED: Sodium Bicarb 50 MEQ/50 ML VIAL ONE ×2 (20:19→20:22)
[2018-02-09] MEDS ORDERED: Dextrose 50% Abboject 50 ML SYRINGE ONE ×2 (20:19→20:22)
[2018-02-09] MEDS ORDERED: Lorazepam 2 MG/ML VIAL ONE (20:51)
[2018-02-09] MEDS ORDERED: traZODone HCl 50 MG TAB ONE (20:52)
[2018-02-09] MEDS ORDERED: Albuterol Sulfate 2.5 mg/3 ml Neb ONE (21:31)
--- NOTE | 2018-02-09 21:51 | CT ---
ABDOMEN CT WITH CONTRAST PELVIC CT WITH CONTRAST: Comparison: 10-07-17 History: Abdominal pain. Generalized weakness. FINDINGS: ABDOMEN CT: There are small bilateral effusions with adjacent right parenchymal changes likely consistent with pn eumonia. Heart is enlarged. No significant pericardial fluid. The descending thoracic aorta and abdom inal aorta have a normal caliber. No periaortic fat stranding. No gastrohepatic, retrocrural or periportal lymphadenopathy. Multiple fluid filled densities in the liver which are too small to characterize. There is heterogene ous appearance of the hepatic parenchyma which may represent areas of fatty infiltrate and fatty spar ing. Spleen, pancreas, and adrenal glands are unremarkable. There is bilateral renal cortical thinning with evidence of multiple hypodense lesions. These lesions are unchanged from the recent CT. Some of these lesions are reported to be cysts. Bilaterally, no ob structive neuropathy. No mesenteric mass, lymphadenopathy, free air or free fluid. Ventral abdominal hernia containing mesenteric fat. No bowel herniation. Limited evaluation of the alimentary canal due to lack of oral contrast administration. There are a f ew nonspecific lymph nodes adjacent to the distal thoracic esophagus. No evidence of small bowel obst ruction. Ileocecal junction is normal. Normal caliber appendix in the right lower quadrant. Scattered fecal material in a nondistended, nondilated colon. No evidence of colon obstruction. Minimal divert iculosis. No evidence of diverticulitis. PELVIC CT: No mass, lymphadenopathy, free air or free fluid. Mild prostatic gland hypertrophy. No lytic or blastic lesions in the osseous structures. IMPRESSION: 1. No evidence of bowel obstruction. 2. Bilateral renal cortical thinning with bilateral renal hypodensities, some of which have been demo nstrated to be cysts. 3. Stable prostatic enlargement. 4. Stable bilateral pleural effusions with adjacent lung parenchymal changes. 5. Re-demonstration of umbilical hernia. 6. Abnormal attenuation of the liver. Findings may represent areas of fatty sparring and fatty infilt rate. Multiple subcentimeter hypodensities cannot be further characterized. Non-emergent abdomen MRI may be beneficial to better characterize the hepatic parenchyma. 7. Normal caliber appendix. POS: [facility]
--- NOTE | 2018-02-09 21:51 | PDOC.FPRHP ---
- History of Present Illness Chief Complaint: Generalized body pain, abdominal pain History of Present Illness: 82 yo M from [facility] in [place] with ESRD on dialysis presents for generalized body pain and abdominal pain starting this morning when he woke up that is 10/10. He describes a sharp left sided chest pain moving into abdomen, neck pain, arm and leg pain. Reports he last dialyzed on Saturday (MWF dialysis). Also reports rhinorrhea and congestion x1 wk. In the ED, K was 7.1. Dr. Son was consulted for emergent dialysis. CXR showed fluid overload of lungs. EKG was unchanged: showed LAD, atrial fibrillation, prolonged QT, T-wave abnormality, RBBB. Trop 0.04, repeat pending. - Allergies/Adverse Reactions Allergies Allergy/AdvReac Type Severity Reaction Status Date / Time aspirin Allergy Verified 09/20/17 12:07 codeine Allergy Verified 09/20/17 12:07 - Home Medications Medication Instructions Recorded Confirmed Type Acetaminophen [Tylenol] 650 mg PO Q4HR PRN 09/23/17 02/10/18 History Amlodipine [Norvasc] 10 mg PO DAILY 09/23/17 02/10/18 History Atorvastatin Calcium 10 mg PO HS 09/23/17 02/10/18 History Benzonatate [Tessalon] 100 mg PO TID PRN 09/23/17 02/10/18 History Bisacodyl [Dulcolax] 5 mg PO BID PRN 09/23/17 02/10/18 History Calcium Acetate [Phoslo] 667 mg PO TID-WM 09/23/17 02/10/18 History Carvedilol [Coreg] 6.25 mg PO BID 09/23/17 02/10/18 History Cholecalciferol (Vitamin D3) 50,000 unit PO Q7DAYS 09/23/17 02/10/18 History [Vitamin D3] Clopidogrel Bisulfate [Plavix] 75 mg PO DAILY 09/23/17 02/10/18 History Ferrous Gluconate [Fergon] 324 mg PO DAILY 09/23/17 02/10/18 History Lisinopril 40 mg PO DAILY 09/23/17 02/10/18 History Ranitidine HCl 150 mg PO Q2D 09/23/17 02/10/18 History hydrALAZINE [Apresoline] 25 mg PO TID 09/23/17 02/10/18 History traZODone HCl [Trazodone HCl] 50 mg PO HS 09/23/17 02/10/18 History - History PMHx: ESRD on MWF dialysis, HTN, HLD, T2DM (states its "resolved" after losing weight), CAD, hyperphosphatemia, GERD, Insomnia, atrial fibrillation PSHx: L-sided hemodialysis hemosplit catheter, L arm fistula, cataract surgery FHx: mother with cancer; denied family history of cardiac issues Social: Denies alcohol, tobacco, or drug use - Review of Systems General: reports: fatigue. 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 denies: eye pain , vision changes ENT: reports: nasal congestion, rhinorrhea Respiratory: reports: shortness of breath. denies: cough, congestion Cardiovascular: reports: chest pain, palpitation Gastrointestinal: reports: constipation, abdominal pain. denies: nausea, vomiting, diarrhea, GI bleeding Genitourinary: denies: incontinence, dysuria Skin: denies: rashes, lesions Musculoskeletal: reports: pain, tenderness Neurological: denies: numbness, weakness Psychological: denies: anxiety, depression - Vital signs BP: [97/57] HR: [77] RR: [18] Tmax: [98.4] Pox: [97]% on [RA] Wt: [98 kg] - Physical Exam Constitutional: NAD, well developed HEENT: normocephalic and atraumatic, PERRLA, conjunctiva clear, grossly normal hearing, MMM, oropharynx clear Neck: supple, no LAD Chest: other (tender to palpation diffusely) Heart: other (Irregularly irregular rhythm, no murmurs) Lungs: other (Expiratory crackles in the bases, no wheezing) Abdomen: soft, bowel sounds present, other (tender to palpation) Musculoskeletal: normal structure, normal tone, ROM grossly normal Neurological: no focal deficit Skin: no rash/lesions, capillary refill <2 seconds Heme/Lymphatic: no unusual bruising or bleeding Psychiatric: normal mood and affect (poor insight, somewhat poor historian) FMR H&P: Results - Labs Result Diagrams: 02/09/18 18:58 02/10/18 09:16 Lab results: WBC 10.9 thou/uL (4.8-10.8) H 02/09/18 18:58 Hgb 11.9 g/dL (14.0-18.0) L 02/09/18 18:58 Hct 38.6 % (42.0-52.0) L 02/09/18 18:58 MCV 85.0 fL (78.0-98.0) 02/09/18 18:58 Plt Count 193 thou/uL (130-400) 02/09/18 18:58 Neutrophils % 78.1 % (42.0-75.0) H 02/09/18 18:58 Sodium 134 mmol/L (136-145) L 02/09/18 18:58 Potassium 7.1 mmol/L (3.5-5.1) H* 02/09/18 18:58 Chloride 92 mmol/L (98-107) L 02/09/18 18:58 Carbon Dioxide 22 mmol/L (23-31) L 02/09/18 18:58 BUN 65 mg/dL (8.4-25.7) H 02/09/18 18:58 Creatinine 10.89 mg/dL (0.7-1.3) H 02/09/18 18:58 Glucose 96 mg/dL (83-110) 02/09/18 18:58 Calcium 8.7 mg/dL (7.8-10.44) 02/09/18 18:58 Total Bilirubin 0.7 mg/dL (0.2-1.2) 02/09/18 18:58 AST 22 U/L (5-34) 02/09/18 18:58 ALT 10 U/L (8-55) 02/09/18 18:58 Alkaline Phosphatase 108 U/L (40-150) 02/09/18 18:58 CK-MB (CK-2) 3.5 ng/mL (0-6.6) 02/09/18 18:58 Serum Total Protein 8.4 g/dL (5.8-8.1) H 02/09/18 18:58 Albumin 4.1 g/dL (3.4-4.8) 02/09/18 18:58 - EKG Interpretation EKG: EKG was unchanged: showed LAD, atrial fibrillation, prolonged QT, T-wave abnormality, RBBB. - Radiology Interpretation Chest x-ray Status: image reviewed by me, report reviewed by me Additional comment: pulmonary congestion, cardiomegaly CT scan - abdomen Status: image reviewed by me, report reviewed by me Additional comment: No acute abnormality Liver: abnormal attenuation of liver Prostate: stable enlargement Lungs: stable bilat pleural effusions with adjacent lung parenchymal changes FMR H&P: A/P - Problem List (1) Hyperkalemia Current Visit: Yes Status: Suspected Code(s): E87.5 - HYPERKALEMIA (2) CAD (coronary artery disease) Current Visit: No Status: Chronic Code(s): I25.10 - ATHSCL HEART DISEASE OF [place] CORONARY ARTERY W/O ANG PCTRS Qualifiers: Coronary Disease-Associated Artery/Lesion type: [place] artery (3) ESRD (end stage renal disease) on dialysis Current Visit: No Status: Chronic Code(s): N18.6 - END STAGE RENAL DISEASE; Z99.2 - DEPENDENCE ON RENAL DIALYSIS (4) HLD (hyperlipidemia) Current Visit: No Status: Chronic Code(s): E78.5 - HYPERLIPIDEMIA, UNSPECIFIED Qualifiers: Hyperlipidemia type: unspecified Qualified Code(s): E78.5 - Hyperlipidemia , unspecified (5) HTN (hypertension) Current Visit: No Status: Chronic Code(s): I10 - ESSENTIAL (PRIMARY) HYPERTENSION Qualifiers: Hypertension type: essential hypertension Qualified Code(s): I10 - Essential (primary) hypertension (6) Hyperphosphatemia Current Visit: No Status: Chronic Code(s): E83.39 - OTHER DISORDERS OF PHOSPHORUS METABOLISM (7) T2DM (type 2 diabetes mellitus) Current Visit: No Status: Chronic Qualifiers: Diabetes mellitus jail insulin use: without buttermaker use - Plan 82 yo M with PMH of ESRD on dialysis presents for generalized body aches and abdominal pain Hyperkalemia -Complains of generalized body aches and abdominal pain - K 7.1 -Slightly decreased blood pressure 90s/60s, other vitals stable -In ED: ativan, tramadol 25 mg oral, calcium gluconate 1 g, albuterol, 1 amp D50 , 10 units Novolin, sodium bicarb, tylenol 1000 mg -EKG stable -CXR showed fluid overload -CT showed no acute abdominal process -Flu swab pending -Dr. Son consulted from ED -Sent for emergent dialysis -Recheck BMP after dialysis Fluid overload, ESRD on MWF dialysis -Lungs fluid overloaded on CXR -Repeat CXR in AM after dialysis HTN -Blood pressure slightly low 90s/60s, continue to monitor - Hold for now (hold for SBP <110 or HR <60 Hydralazine, lisinopril, norvasc, coreg HLD and CAD -restart home atorvastatin, plavix Hyperphosphatemia -restart home phoslo GERD -restart home meds Anemia of chronic disease -Restart home Fe -Hgb 11.9 COPD Constipation GERD Admit to medical obs Diet: regular Dispo: most likely tomorrow Code status: DNAR FMR H&P: Upper Level - Pertinent history 82 yo AMM PMH ESRD on MWF HD, HTN, DM2, and vision impairment. Presents with SOB , nasal congestion, and generalized body aches. SOB for 6 months, congestion x1 week, and body aches x1 day. Denies fever. Lives at [facility]. Presented to ER. ER: Labs, CXR, EKG, CT abdomen and pelvis. Ativan, tramadol, IV insulin, calcium chloride x1 amp, albuterol NEB, sodium bicarb x1 amp, IV dextrose. - Pertinent findings Vitals: Pulse ox 88-90% on room air, BP 97/57, pulse 77, resp 18. GEN: Ill appearing, NAD ENT: MMM CV: RRR, no murmur, Pulm: normal effort, bibasilar crackles. Extremities: AV fistula left upper arm with palpable pulse, trace edema. Pertinent Labs: Trop 0.04, K+ 7.1, WBC 10.8 Micro: Flu swab pending Imaging: CXR- pulmonary vascular congestion, possible infiltrate, CT-abd/pelvis- right sided lower lobe pneumonia, otherwise stable exam. EKG: Rate 73, A-fib, RBBB, QTc 524, unchanged compared to 10/07/17. - Plan Date/Time: 02/09/182150 I, Aki Evans MD, have evaluated this patient and agree with findings/plan as outlined by application development intern resident. Pertinent changes/additions are listed here. 1. Hyperkalemia- likely related to ESRD. Nephro called by ER and plan to perform HD in hospital. Has received temporizing measures in ER. Will follow up with recommendations. 2. Fluid overload- likely 2/2 ESRD. No Echo on file but medication combination suggests some degree of CAD or CHF. Will repeat CXR tomorrow. If volume status not improve, will consider ordering TTE. BNP not check but will likely be elevated even if normal cardiac function. 3. Malaise- given he lives in [place] and it is flu season, will check Flu swab and procalcitonin to r/o influenza and pneumonia. CT reads as pneumonia. If procalcitonin is elevated, will inititate therapy for CAP. 4. HTN- home meds 5. DM2- Home meds, accuchecks, SSI available 6. Vision impairment- fall precautions. 7. Diet- HH, renal, fluid restrict 1800 mL/day 8. PPx- fall, SCD given risk of fall. 9. CODE STATUS: OOH DNR confirmed with patient and will remain DNR in hospital. DISPO: medical, obs, <[address] Crespo. Addendum - Attending - Attending Attestation Date/Time: 02/10/18 0015 I personally evaluated the patient and discussed the management with Dr. Amaya and Nathan. I agree with the History, Examination, Assessment and Plan documented above with any addition or exceptions noted below.
[2018-02-09 22:40] LABS: Troponin I 0.044 ng/mL (< 0.028)
[2018-02-09] MEDS ORDERED: Dextrose 5% in Water 1,000 ML IV PRN (23:36)
[2018-02-09] MEDS ORDERED: Dextrose 50% Abboject 50 ML SYRINGE SLOW IVP PRN (23:36)
[2018-02-09] MEDS ORDERED: Calcium Carbonate 500 MG ChewTAB PO PRN (23:36)
[2018-02-09] MEDS ORDERED: Senokot S 8.6-50 MG TAB PO PRN (23:36)
[2018-02-09] MEDS ORDERED: Insulin Regular 300 UNITS/3 ML VIAL SC PRN (23:36)
[2018-02-09] MEDS ORDERED: Acetaminophen 650 MG Suppository PR PRN (23:36)
[2018-02-09] MEDS ORDERED: Ondansetron PF 4 MG/2 ML Vial IVP PRN (23:36)
[2018-02-09] MEDS ORDERED: traMADol HCl 50 MG TAB PO PRN (23:53)
[2018-02-10] MEDS: Acetaminophen 325 MG TAB PO PRN ×3 (00:18→17:46)
[2018-02-10 00:34] LABS: HBSAg Index 0.22 S/CO (0-0.99); Hep B Surf Ag Non-Reactive S/CO (NonReactive)
[2018-02-10 01:17] LABS: Hep B Surf AB Reactive (NonReactive)
[2018-02-10 01:18] LABS: HBSAB Concentration 47.28 mIU/mL
[2018-02-10 01:36] LABS: Troponin I 0.038 ng/mL (< 0.028)
[2018-02-10] MEDS ORDERED: traMADol HCl 50 MG TAB PO SCH (03:00)
[2018-02-10 03:17] LABS: Anion Gap 23 mmol/L (10-20); BUN (Urea Nitrogen) 39 mg/dL (8.4-25.7); Calc. Creatinine Clearance 0 mL/min (70-130); Calcium 9.6 mg/dL (7.8-10.44); Carbon Dioxide 24 mmol/L (23-31); Chloride 95 mmol/L (98-107); Estimated GFR-MDRD 9; Glucose 83 mg/dL (83-110); Potassium 4.3 mmol/L (3.5-5.1); Sodium 138 mmol/L (136-145)
[2018-02-10] MEDS ORDERED: Bisacodyl 5 MG TAB PO PRN (03:29)
[2018-02-10] MEDS ORDERED: Non-Formulary Item 1 EACH (Ranitidine Hcl [Ranitidine Hcl] 150 MG) PO SCH (03:30)
[2018-02-10] MEDS ORDERED: traZODone HCl 50 MG TAB PO SCH ×2 (03:45→21:00)
[2018-02-10 06:38] VITALS: BMI 29.2
--- NOTE | 2018-02-10 07:42 | PDOC.FM ---
- Subjective Subjective: Andrew Garcia seen at bedside this morning. States that he is not feeling well and his lower abdominal pain has continued. He had hemodialysis done overnight and 2 L of fluid was removed. There were no acute events overnight. After HD, K+ dropped from 7.1 to 4.3. - Objective MAR Reviewed: Yes Vital Signs & Weight: Vital Signs (12 hours) Temp Pulse Resp BP Pulse Ox 02/10/18 04:15 98.7 F 83 16 98/61 95 02/10/18 02:25 98.0 F 80 16 135/69 94 L Weight Weight 98 kg Result Diagrams: 02/09/18 18:58 02/10/18 09:16 Phys Exam - Physical Examination Constitutional: NAD HEENT: moist MMs, sclera anicteric Neck: no JVD, supple, full ROM Respiratory: no wheezing, no rales, no rhonchi, clear to auscultation bilateral Cardiovascular: RRR, no significant murmur TTP diffusely, most in the umbilical area, no guarding or rigidity Musculoskeletal: no edema Neurological: non-focal, moves all 4 limbs Dx/Plan (1) Hyperkalemia Code(s): E87.5 - HYPERKALEMIA Status: Suspected (2) ESRD (end stage renal disease) on dialysis Code(s): N18.6 - END STAGE RENAL DISEASE; Z99.2 - DEPENDENCE ON RENAL DIALYSIS Status: Chronic (3) CAD (coronary artery disease) Code(s): I25.10 - ATHSCL HEART DISEASE OF [place] CORONARY ARTERY W/O ANG PCTRS Status: Chronic Qualifiers: Coronary Disease-Associated Artery/Lesion type: [place] artery (4) HLD (hyperlipidemia) Code(s): E78.5 - HYPERLIPIDEMIA, UNSPECIFIED Status: Chronic Qualifiers: Hyperlipidemia type: unspecified Qualified Code(s): E78.5 - Hyperlipidemia , unspecified (5) HTN (hypertension) Code(s): I10 - ESSENTIAL (PRIMARY) HYPERTENSION Status: Chronic Qualifiers: Hypertension type: essential hypertension Qualified Code(s): I10 - Essential (primary) hypertension (6) Hyperphosphatemia Code(s): E83.39 - OTHER DISORDERS OF PHOSPHORUS METABOLISM Status: Chronic (7) T2DM (type 2 diabetes mellitus) Status: Chronic Qualifiers: Diabetes mellitus terminal operator insulin use: without intermediate use - Plan Plan: 1) Hyperkalemia- - likely related to ESRD - Nephro called by ER, had HD yesterday - Will continue daily BMPs 2) Fluid overload- - likely 2/2 ESRD, BNP likely elevated due to ESRD so will hold off on ordering - Repeat CXR today - Will order TTE if volume status does not improve with HD 3) Malaise- - Negative influenza swab - Procal is in intermediate range, will trend - CXR could not r/o infiltrate - If procalcitonin is trends up, will inititate therapy for CAP. 4) HTN- - home meds 5) DM2- - Home meds, accuchecks, SSI available 6) Vision impairment- fall precautions. 7) Diet- HH, renal, fluid restrict 1800 mL/day Addendum - Attending - Attending Attestation Date/Time: 02/10/18 1210 I personally evaluated the patient and discussed the management with Dr. Boone. I agree with the History, Examination, Assessment and Plan documented above with any addition or exceptions noted below. This morning the patient complains of diffuse myalgias and abdominal pain. Flu swab was negative. Pt had dialysis on arrival and initially potassium improved however it is elevated again on repeat. Dr. Son has been consulted and he plans for pt to have dialysis again. Abdomen is diffusely tender with bowel sounds present in all quadrants but with no rigidity. Pt is also diffusely tender in arms and legs. Trend white blood cell count. CT abdomen was done on arrival and shows nothing acute. Pt is afebrile.
[2018-02-10] MEDS: Clopidogrel Bisulfate 75 MG TAB PO SCH (08:30)
[2018-02-10] MEDS: Ferrous Gluconate 324 MG TAB PO SCH (08:31)
[2018-02-10] MEDS: Calcium Acetate 667 MG CAP PO SCH ×3 (08:31→17:46)
[2018-02-10] MEDS: hydrALAZINE 25 MG TAB PO SCH ×3 (08:32→20:01)
[2018-02-10] MEDS: Amlodipine 10 MG TAB PO SCH (08:32)
[2018-02-10] MEDS: Carvedilol 6.25 MG TAB PO SCH ×2 (08:33→20:01)
--- NOTE | 2018-02-10 08:39 | RAD ---
CHEST 1 VIEW: COMPARISON: 02/09/2018. HISTORY: Evaluate infiltrate. FINDINGS: Stable left-sided HemoSplit dialysis catheter. Cardiomegaly is noted. The pulmonary vessels are pro minent. Persistent interstitial opacification. No pneumothorax. Small left-sided pleural effusion is redemonstrated. IMPRESSION: No significant change. POS: [facility]
[2018-02-10] MEDS ORDERED: Lisinopril 20 MG TAB PO SCH ×2 (09:00→09:09)
[2018-02-10] MEDS ORDERED: Non-Formulary Item 1 EACH (Lisinopril [Lisinopril] 40 MG) PO SCH (09:00)
[2018-02-10 09:44] LABS: Anion Gap 21 mmol/L (10-20); BUN (Urea Nitrogen) 43 mg/dL (8.4-25.7); Calc. Creatinine Clearance 10 mL/min (70-130); Carbon Dioxide 25 mmol/L (23-31); Chloride 93 mmol/L (98-107); Estimated GFR-MDRD 7; Glucose 104 mg/dL (83-110); Sodium 133 mmol/L (136-145)
[2018-02-10] MEDS: Famotidine 20 MG TAB PO SCH (10:10)
--- NOTE | 2018-02-10 10:29 | CON ---
DATE OF CONSULTATION: HISTORY OF PRESENT ILLNESS: Mr. Garcia is an 82-year-old black male, who was admitted for generalized malaise/diffuse body pain. During the initial workup, he was found to be hyperkalemic with a potassium of 7.1. Chest x-ray also showed increased lung markings. He underwent emergent hemodialysis at that time. He used initially 1.0 potassium bath in the first hour and used 2.0 bath in the second hour. This morning, still with some diffuse myalgia. No complaints of chest pain or shortness of breath. REVIEW OF SYSTEMS: Positive for diffuse myalgia and positive for abdominal pain. No nausea. No vomiting. No syncopal episode. No productive cough. No fever or chills. No gross hematuria. No dysuria. No urinary frequency. Appetite and energy level are fair. No syncopal episode. No sore throat. MEDICATIONS: 1. Tylenol 650 mg q.4 p.r.n. 2. Amlodipine 10 mg daily. 3. Lipitor 10 mg at bedtime. 4. Tessalon Perles 100 mg p.o. t.i.d. p.r.n. 5. PhosLo 667 mg one tablet t.i.d. with meals. 6. Tums 1000 mg q.4 p.r.n. 7. Coreg 6.25 mg p.o. b.i.d. 8. Plavix 75 mg daily. 9. Ergocalciferol 1.25 mg p.o. every 7 days. 10. Pepcid 20 mg every 2 days. 11. Ferrous sulfate 324 mg once a day. 12. Humulin R sliding scale. 13. Lisinopril 40 mg tablet once a day. 14. Zofran p.r.n. 15. Ultram 50 mg q.6 p.r.n. 16. Desyrel 50 mg at bedtime. PAST MEDICAL HISTORY: 1. History of ESRD-secondary to presumed diabetic nephropathy. 2. Hyperlipidemia. 3. Hyperphosphatemia. 4. Coronary artery disease. 5. Hypertensive nephropathy. 6. Acid reflux. 7. ? of diabetes mellitus. PAST SURGICAL HISTORY: Status post AV fistula placement, status post cuffed dialysis catheter placement, status post AV fistulogram. SOCIAL HISTORY: The patient is originally from [place], currently prison at [facility]. He is . He is a retired flooring mechanic. Two children. No IV drug abuse. Status post marijuana use in the past. Alcohol, none. Status post blood transfusion. Education, 10th grade. ALLERGIES: ASPIRIN, CODEINE. TRAUMA: None. IMMUNIZATION: Up-to-date. HOSPITALIZATIONS: Please see past medical history. FAMILY HISTORY: No family history of ESRD. PHYSICAL EXAMINATION: VITAL SIGNS: Blood pressure is 132/76, heart rate 77, respiratory rate 18, temperature 98.2, and pulse ox 93% on room air. GENERAL: Noted to be awake, supine, comfortable, obese, not in distress. SKIN: Adequate turgor. HEENT: He has pinkish conjunctivae. Anicteric sclerae. NECK: No neck mass. No carotid bruits. No JVD. CHEST: No deformities. LUNGS: Decreased breath sounds. No wheezing. No crackles. HEART: Normal sinus rhythm. No murmur. No gallops. No rubs. ABDOMEN: Globular, soft, nontender. No masses. EXTREMITIES: No edema. No deformities. NEUROLOGIC: Awake and oriented to 3 spheres. Moving all extremities. No tremors. No asterixis. No ataxia. LABORATORY DATA: Laboratories of February 09, 2018; white count 10.9, hemoglobin 11.9. Sodium 138, potassium 4.3, chloride 95, carbon dioxide 24, BUN 39, creatinine 7.02. Troponin I 0.038. Laboratories of February 10, 2018, at 1:07 a.m. sodium 138, potassium 4.3, chloride 95, carbon dioxide 24, BUN 39, creatinine 7.02, calcium 9.6. White count 10.9, hemoglobin 11.9. IMAGING STUDIES: Chest x-ray of February 10, 2018, shows no significant change, small left-sided pleural effusion. Pulmonary vessels are prominent. ASSESSMENT AND PLAN: 1. Hyperkalemia. Repeat potassium has been ordered. I have rescheduled him again for another dialytic intervention, which will be his regular dialysis day. Review of his last Kt/V suggests he is adequately dialyzed with the current dialysis regimen. My plan is to do a 4-hour hemodialysis with this patient today. 2. End-stage renal disease-stable. Continue current three times a week hemodialysis. 3. Diffuse myalgia. Supportive care. 4. Recheck basic metabolic and CBC in a.m. Job ID: [id number]
[2018-02-10] MEDS: traMADol HCl 50 MG TAB PO PRN ×2 (14:48→21:14)
[2018-02-10] MEDS: traZODone HCl 50 MG TAB PO SCH (20:01)
[2018-02-10] MEDS: Atorvastatin Calcium 10 MG TAB PO SCH (20:02)
[2018-02-11] MEDS: traMADol HCl 50 MG TAB PO PRN ×2 (05:02→22:01)
[2018-02-11] MEDS: Acetaminophen 325 MG TAB PO PRN ×3 (05:03→23:42)
[2018-02-11 06:13] LABS: #Basophils 0.2 thou/uL (0.0-0.2); #Eosinphils 0.1 thou/uL (0.0-0.7); #Lymphocytes 0.5 thou/uL (1.20-3.40); #Monocytes 1.1 thou/uL (0.11-0.59); #Neutrophils 8.9 thou/uL (1.40-6.50); %Basophils 1.9 % (0.0-1.0); %Eosinophils 0.8 % (0.0-10.0); %Lymphocytes 4.2 % (21.0-51.0); %Monocytes 10.1 % (0.0-10.0); %Neutrophils 83.1 % (42.0-75.0); Hemoglobin 11.7 g/dL (14.0-18.0); Mean Corpuscular HGB CONC 31.2 g/dL (32.0-36.0); Mean Corpuscular Hemoglobin 26.7 pg (27.0-31.0); Mean Corpuscular Volume 85.4 fL (78.0-98.0); Mean Platelet Volume 10.4 fL (7.4-10.4); Platelet Count 198 thou/uL (130-400); RBC Distribution Width 18.2 % (11.5-14.5); White Blood Cell (WBC) Count 10.8 thou/uL (4.8-10.8)
[2018-02-11 06:37] LABS: Anion Gap 20 mmol/L (10-20); BUN (Urea Nitrogen) 31 mg/dL (8.4-25.7); Calc. Creatinine Clearance 13 mL/min (70-130); Calcium 8.6 mg/dL (7.8-10.44); Carbon Dioxide 25 mmol/L (23-31); Chloride 93 mmol/L (98-107); Estimated GFR-MDRD 10; Glucose 102 mg/dL (83-110); Potassium 5.2 mmol/L (3.5-5.1); Sodium 133 mmol/L (136-145)
--- NOTE | 2018-02-11 06:54 | PDOC.FM ---
- Subjective Subjective: Andrew Garcia seen at bedside this morning. He states that he is feeling better this morning compared to yesterday. There were no acute events overnight. He had a second round of hemodialysis yesterday. Feels like his strength is improved and his abdominal pain is also improved. His potassium is 5.2 this morning. - Objective MAR Reviewed: Yes Vital Signs & Weight: Vital Signs (12 hours) Temp Pulse Resp BP BP Pulse Ox 02/11/18 04:33 98.7 F 76 18 108/66 90 L 02/11/18 00:21 98.7 F 72 18 126/76 94 L 02/10/18 20:39 98.0 F 77 18 114/69 91 L 02/10/18 20:01 76 118/69 Weight Weight 98 kg I&O: 02/09/18 02/10/18 02/11/18 06:59 06:59 06:59 Intake Total 480 Balance 480 Result Diagrams: 02/11/18 05:43 02/11/18 05:43 Phys Exam - Physical Examination Constitutional: NAD (patient sitting up in bed this morning eating breakfast) HEENT: moist MMs, sclera anicteric Neck: supple, full ROM Respiratory: no wheezing, no rales, no rhonchi, clear to auscultation bilateral Cardiovascular: RRR, no significant murmur Gastrointestinal: soft mild to moderate TTP diffusely, no guarding or rigidity, no rebound Musculoskeletal: no edema, pulses present Neurological: non-focal, moves all 4 limbs Psychiatric: normal affect Skin: no rash Dx/Plan (1) Hyperkalemia Code(s): E87.5 - HYPERKALEMIA Status: Suspected (2) ESRD (end stage renal disease) on dialysis Code(s): N18.6 - END STAGE RENAL DISEASE; Z99.2 - DEPENDENCE ON RENAL DIALYSIS Status: Chronic (3) CAD (coronary artery disease) Code(s): I25.10 - ATHSCL HEART DISEASE OF [place] CORONARY ARTERY W/O ANG PCTRS Status: Chronic Qualifiers: Coronary Disease-Associated Artery/Lesion type: [place] artery (4) HLD (hyperlipidemia) Code(s): E78.5 - HYPERLIPIDEMIA, UNSPECIFIED Status: Chronic Qualifiers: Hyperlipidemia type: unspecified Qualified Code(s): E78.5 - Hyperlipidemia , unspecified (5) HTN (hypertension) Code(s): I10 - ESSENTIAL (PRIMARY) HYPERTENSION Status: Chronic Qualifiers: Hypertension type: essential hypertension Qualified Code(s): I10 - Essential (primary) hypertension (6) Hyperphosphatemia Code(s): E83.39 - OTHER DISORDERS OF PHOSPHORUS METABOLISM Status: Chronic (7) T2DM (type 2 diabetes mellitus) Status: Chronic Qualifiers: Diabetes mellitus mcc insulin use: without mcc use - Plan Plan: 1) Hyperkalemia- - likely 2/2 ESRD - K+ down to 5.2 on 02/11/18 - Now s/p HD X2 since admission, He is back on MWF schedule - HD on 01/10 and . - Will continue daily BMPs - Dr. Son has cleared patient for discharge to resume MWF HD. 2) Fluid overload- - likely 2/2 ESRD, BNP likely elevated due to ESRD so will hold off on ordering - Will order TTE if volume status does not improve with HD 3) Malaise- - Negative influenza swab - Procal is in intermediate range, downtrended to 0.78 - CXR could not r/o infiltrate - No indication for antibiotics at this time 4) HTN- - home meds 5) DM2- - Home meds, accuchecks, SSI available 6) Vision impairment- fall precautions. 7) Diet- HH, renal, fluid restrict 1800 mL/day Addendum - Attending - Attending Attestation Date/Time: 02/11/18 1101 I personally evaluated the patient and discussed the management with Dr. Boone. I agree with the History, Examination, Assessment and Plan documented above with any addition or exceptions noted below. The patient's abdominal pain is improving. Pt has been cleared for discharge by Dr. Son.
[2018-02-11] MEDS: Clopidogrel Bisulfate 75 MG TAB PO SCH (09:27)
[2018-02-11] MEDS: Calcium Acetate 667 MG CAP PO SCH ×3 (09:27→17:32)
[2018-02-11] MEDS: Ferrous Gluconate 324 MG TAB PO SCH (09:28)
[2018-02-11] MEDS: hydrALAZINE 25 MG TAB PO SCH ×3 (09:37→21:52)
[2018-02-11] MEDS: Amlodipine 10 MG TAB PO SCH (09:37)
[2018-02-11] MEDS: Carvedilol 6.25 MG TAB PO SCH ×2 (09:37→21:52)
[2018-02-11] MEDS: Ergocalciferol 1.25 MG(50,000 UNITS) CAP PO SCH (09:59)
--- NOTE | 2018-02-11 17:03 | DIS ---
DATE OF ADMISSION: 02/09/2018 DATE OF DISCHARGE: 02/18/2018 CONSULTATIONS: Nephrology, Dr. Son, on 02/09/2018. PROCEDURES: 1. Hemodialysis on 02/09/2018. 2. Hemodialysis on 02/10/2018. 3. Chest x-ray on 02/09/2018. Impression: Congestive heart failure, superimposed infiltrate cannot be excluded. Continued surveillance recommended. 4. CT abdomen and pelvis on 02/09/2018. Impression: No evidence of bowel obstruction. Bilateral renal cortical thinning with bilateral renal hypodensities, some of which have been misread to be cysts. Stable prostatic enlargement. Stable bilateral pleural effusions with adjacent lung parenchymal changes. Brief demonstration of umbilical hernia. Abnormal attenuation of the liver, findings may represent areas of fatty sparing and fatty infiltrates. Multiple subcentimeter hypodensities could not be further characterized. Nonemergent abdomen MRI may be beneficial to better characterize hepatic parenchyma. Normal caliber appendix. 5. Chest x-ray on 02/10/2018. Impression: No significant change. PRIMARY DIAGNOSIS: Hyperkalemia. SECONDARY DIAGNOSES: 1. End-stage renal disease, on hemodialysis. 2. Type 2 diabetes mellitus. 3. Hypertension. 4. Coronary artery disease. 5. Hyperlipidemia. 6. Hyperphosphatemia. DISCHARGE MEDICATIONS: Resume home medications includin. Tessalon 100 mg p.o. t.i.d. p.r.n. 2. Tylenol 650 mg p.o. q.4 hours p.r.n. 3. Trazodone HCL 50 mg p.o. at bedtime. 4. Dulcolax 5 mg p.o. b.i.d. p.r.n. 5. Plavix 75 mg p.o. daily. 6. Vitamin D3 50,000 units p.o. q.7 days. 7. Hydralazine 25 mg p.o. t.i.d. 8. Carvedilol 6.25 mg p.o. b.i.d. 9. Lisinopril 40 mg p.o. daily. 10. Ferrous gluconate 324 mg p.o. daily. 11. Amlodipine 10 mg p.o. daily. 12. Atorvastatin calcium 10 mg p.o. daily. 13. Ranitidine 150 mg p.o. q.2 days. 14. PhosLo 667 mg p.o. t.i.d. with meals. 15. Tramadol 50 mg p.o. q.12 hours p.r.n. 16. Senakot 2 tab po bid prn HISTORY OF PRESENT ILLNESS/HOSPITAL COURSE: Andrew Garcia is an 82-year-old male, resident of [facility], has a past medical history of end-stage renal disease on hemodialysis, Saturday, Saturday, Saturday, managed by Dr. Son, who presented to the ED with generalized body pain and abdominal pain starting on the morning of 02/09/2018, stating that he woke up with pain that was 10/10, described as sharp left sided chest pain moving to the abdomen, arm, neck, and leg pain. He reports last dialysis was on Saturday. He also reports that he has had rhinorrhea and congestion x1 week. In the ED, he had a potassium of 7.1, Dr. Son his lumber bearer was consulted for emergent dialysis. Chest x-ray showed fluid overload in the lungs. EKG was unchanged from previous. Troponin was 0.04. Other pertinent lab findings, white blood cell count 10.9, hemoglobin at 11.9, hematocrit 38.6. Sodium 133, potassium 7.1, BUN 43, creatinine 8.55. After emergent dialysis the patient's laboratory findings did show some improvement with potassium dropping down to 4.3, however potassium sarah to 6.0 in the morning of 02/10. Dr. Son scheduled repeat hemodialysis on 02/10/2018. On the morning of 02/11/2018, the patient's potassium was 5.2. That morning, the patient also stated that he was feeling much better and that his weakness and generalized abdominal pain had started to improve and he felt stronger. His troponins were trended x3, and initially sarah to 0.044 from 0.04 and then down trended to 0.038. Due to chest x-ray showing possible infiltrate, the patient had procalcitonin that was initially indeterminant at 0.81 and came down to 0.78 and antibiotics were never initiated during this admission. The patient was negative for flu. The patient was cleared for discharge by Dr. Son on 2018 with instructions to resume normal Saturday, Saturday, Saturday hemodialysis. The patient was subsequently discharged back to [facility]. However, patient's hospital stay was prolonged and discharged placed on 02/11/18 was cancelled because patient's daughter initially wanted him to go to a different penitentiary. He was accepted to a penitentiary and then daughter decided she wanted patient to go to SNF. Placement was delayed further due to the weekend. Patient was accepted to [facility] on 02/18/18 and was subsequently discharged. His hospital stay was not complicated from 02/11/18 to 02/18/18. He was back to his baseline and continued his normal MWF dialysis. DISPOSITION: Guarded. DISCHARGE INSTRUCTIONS: 1. Location: [facility] 2. Diet: Renal diet. 3. Activities: As tolerated. 4. Follow up: With primary care provider and Dr. Son within 1 week. Job ID: [id number] [facility]
[2018-02-11] MEDS: traZODone HCl 50 MG TAB PO SCH (20:22)
[2018-02-11] MEDS: Atorvastatin Calcium 10 MG TAB PO SCH (20:22)
[2018-02-12] MEDS: traMADol HCl 50 MG TAB PO PRN ×2 (04:39→13:36)
[2018-02-12 06:21] LABS: Anion Gap 21 mmol/L (10-20); BUN (Urea Nitrogen) 52 mg/dL (8.4-25.7); Calc. Creatinine Clearance 9 mL/min (70-130); Carbon Dioxide 26 mmol/L (23-31); Chloride 91 mmol/L (98-107); Estimated GFR-MDRD 7; Glucose 120 mg/dL (83-110); Potassium 5.5 mmol/L (3.5-5.1); Sodium 132 mmol/L (136-145)
--- NOTE | 2018-02-12 06:48 | PDOC.FM ---
- Subjective Subjective: Andrew Garcia seen at bedside during dialysis this morning. He is doing well, his symptoms of abdominal pain and diffuse aches have improved. He was discharged yesterday but his daughter did not want him to go back to [facility] so CM and daughter are working on getting patient to different intermediate today. Patient is still clear for d/c. He had no acute events overnight. Denies fever, chills, chest pain, dyspnea, n/v. - Objective MAR Reviewed: Yes Vital Signs & Weight: Vital Signs (12 hours) Temp Pulse Resp BP BP Pulse Ox 02/12/18 03:57 97.9 F 70 20 103/62 95 02/12/18 00:45 98.5 F 72 20 91/59 L 93 L 02/11/18 21:52 76 100/61 02/11/18 20:08 97.9 F 76 20 100/61 92 L Weight Weight 98 kg I&O: 02/10/18 02/11/18 02/12/18 06:59 06:59 06:59 Intake Total 480 Balance 480 Result Diagrams: 02/11/18 05:43 02/12/18 05:41 Phys Exam - Physical Examination Constitutional: NAD HEENT: moist MMs, sclera anicteric Neck: supple, full ROM Respiratory: no wheezing, no rales, no rhonchi, clear to auscultation bilateral Cardiovascular: RRR, no significant murmur Gastrointestinal: soft, non-tender, no distention, positive bowel sounds improved abdominal exam, no TTP Musculoskeletal: no edema, pulses present Neurological: moves all 4 limbs Psychiatric: normal affect, A&O x 3 Skin: no rash Dx/Plan (1) Hyperkalemia Code(s): E87.5 - HYPERKALEMIA Status: Acute (2) ESRD (end stage renal disease) on dialysis Code(s): N18.6 - END STAGE RENAL DISEASE; Z99.2 - DEPENDENCE ON RENAL DIALYSIS Status: Chronic (3) CAD (coronary artery disease) Code(s): I25.10 - ATHSCL HEART DISEASE OF [place] CORONARY ARTERY W/O ANG PCTRS Status: Chronic Qualifiers: Coronary Disease-Associated Artery/Lesion type: [place] artery (4) HLD (hyperlipidemia) Code(s): E78.5 - HYPERLIPIDEMIA, UNSPECIFIED Status: Chronic Qualifiers: Hyperlipidemia type: unspecified Qualified Code(s): E78.5 - Hyperlipidemia , unspecified (5) HTN (hypertension) Code(s): I10 - ESSENTIAL (PRIMARY) HYPERTENSION Status: Chronic Qualifiers: Hypertension type: essential hypertension Qualified Code(s): I10 - Essential (primary) hypertension (6) Hyperphosphatemia Code(s): E83.39 - OTHER DISORDERS OF PHOSPHORUS METABOLISM Status: Chronic (7) T2DM (type 2 diabetes mellitus) Status: Chronic Qualifiers: Diabetes mellitus long-term insulin use: without long-term use - Plan Plan: 1) Hyperkalemia- - likely 2/2 ESRD - K+ down trending up this morning, now at 5.5. To be expected 2/2 ESRD - Now s/p HD X2 since admission, He is back on MWF schedule - HD on 01/10 and . - Will continue daily BMPs - Dr. Son has cleared patient for discharge to resume MWF HD. - Discharge held overnight because patient's family wants to find him a different intermediate - CM consulted for discharge planning 2) Fluid overload- - likely 2/2 ESRD, BNP likely elevated due to ESRD so will hold off on ordering - improved with HD 3) Malaise- - Negative influenza swab - Procal is in intermediate range, downtrended to 0.78 - CXR could not r/o infiltrate - No indication for antibiotics at this time - Symptoms improved after 2nd round of dialysis 4) HTN- - home meds 5) DM2- - Home meds, accuchecks, SSI available 6) Vision impairment- fall precautions. 7) Diet- HH, renal, fluid restrict 1800 mL/day Addendum - Attending - Attending Attestation Date/Time: 02/12/18 8841 I personally evaluated the patient and discussed the management with Dr. Bonoe. I agree with the History, Examination, Assessment and Plan documented above with any addition or exceptions noted below. The patient is feeling much better this morning and his spirits are improved. He notes abdominal pain is better. Pt was seen in dialysis. Pt's daughter wants pt to go to a new intermediate. Consulting case mgmt.
[2018-02-12] MEDS: Calcium Acetate 667 MG CAP PO SCH ×4 (08:00→17:52)
--- NOTE | 2018-02-12 09:10 | PRG ---
DATE OF SERVICE: 02/12/2018 SUBJECTIVE: Mr. Garcia is an 82-year-old black male with ESRD and being followed by the [facility]al Service for his maintenance hemodialysis. He still has some nasal congestion and mild shortness of breath. He is undergoing hemodialysis. We are maxing out fluid removal with him. I am at the bedside supervising his dialysis. OBJECTIVE: VITAL SIGNS: Blood pressure is 88/60, heart rate 69, respiratory rate 18, temperature 98.1, pulse ox 91%. GENERAL: Noted to be awake, alert, comfortable, not in distress. SKIN: Adequate turgor. HEENT: He has pinkish conjunctivae. Anicteric sclerae. No neck mass. No carotid bruits. No JVD. CHEST: No deformities. LUNGS: Clear breath sounds. HEART: Normal sinus rhythm. No murmur. No gallops. No rubs. ABDOMEN: Globular, soft, and nontender. No masses. EXTREMITIES: No edema. No deformities. LABORATORY DATA: Laboratories of February 12, 2018, white count 10.8, hemoglobin 11.7, sodium 132, potassium 5.5, chloride 91, carbon dioxide 26, BUN 52, creatinine 8.82, glucose 120, calcium 8.0. ASSESSMENT AND PLAN: 1. Mild hyperkalemia, due to the persistent hyperkalemia. We will discontinue lisinopril. In addition, blood pressure was on the low side. 2. End-stage renal disease, stable. Max out fluid removal only as tolerated. We have discontinued lisinopril for the moment, reintroduce in the near future. 3. Decreased blood pressure, adjust blood pressure medications as needed. 4. Overall, agree with current management. Job ID: [id number]
[2018-02-12] MEDS: hydrALAZINE 25 MG TAB PO SCH ×3 (09:25→21:24)
[2018-02-12] MEDS: Amlodipine 10 MG TAB PO SCH (11:45)
[2018-02-12] MEDS: Ferrous Gluconate 324 MG TAB PO SCH (11:46)
[2018-02-12] MEDS: Famotidine 20 MG TAB PO SCH (11:46)
[2018-02-12] MEDS: Clopidogrel Bisulfate 75 MG TAB PO SCH (13:37)
[2018-02-12] MEDS ORDERED: Heparin 10,000 UNITS/ 10 ML VIAL ONE (15:00)
[2018-02-12] MEDS: Carvedilol 6.25 MG TAB PO SCH ×2 (17:52→21:23)
[2018-02-12] MEDS: Atorvastatin Calcium 10 MG TAB PO SCH (21:23)
[2018-02-12] MEDS: traZODone HCl 50 MG TAB PO SCH (21:23)
[2018-02-13 06:37] LABS: Anion Gap 21 mmol/L (10-20); BUN (Urea Nitrogen) 36 mg/dL (8.4-25.7); Calc. Creatinine Clearance 12 mL/min (70-130); Calcium 8.5 mg/dL (7.8-10.44); Carbon Dioxide 26 mmol/L (23-31); Chloride 96 mmol/L (98-107); Estimated GFR-MDRD 9; Glucose 105 mg/dL (83-110); Potassium 4.8 mmol/L (3.5-5.1); Sodium 138 mmol/L (136-145)
--- NOTE | 2018-02-13 06:55 | PDOC.FM ---
- Subjective Subjective: Andrew Garcia seen at bedside this morning. He is doing well, no complaints and no acute events overnight. States that his abdominal pain is resolved and he is back to feeling like his normal self. He is currently awaiting acceptance to a different retirement and he is clear for discharge. - Objective MAR Reviewed: Yes Vital Signs & Weight: Vital Signs (12 hours) Temp Pulse Resp BP BP Pulse Ox 02/13/18 04:34 98.4 F 80 22 H 113/73 95 02/13/18 00:01 97.7 F 80 19 123/74 97 02/12/18 21:24 78 107/70 02/12/18 21:23 107/70 02/12/18 20:47 98 F 78 20 107/70 97 Weight Weight 98 kg I&O: 02/11/18 02/12/18 02/13/18 06:59 06:59 06:59 Intake Total 480 360 800 Output Total 0 30 Balance 480 360 770 Result Diagrams: 02/11/18 05:43 02/13/18 06:11 Phys Exam - Physical Examination Constitutional: NAD HEENT: moist MMs, sclera anicteric Neck: supple, full ROM Respiratory: no wheezing, no rales, no rhonchi, clear to auscultation bilateral Cardiovascular: RRR, no significant murmur Gastrointestinal: soft, non-tender, no distention, positive bowel sounds Musculoskeletal: no edema, pulses present Neurological: non-focal, normal sensation, moves all 4 limbs Psychiatric: normal affect, A&O x 3 Skin: no rash Dx/Plan (1) Hyperkalemia Code(s): E87.5 - HYPERKALEMIA Status: Resolved (2) ESRD (end stage renal disease) on dialysis Code(s): N18.6 - END STAGE RENAL DISEASE; Z99.2 - DEPENDENCE ON RENAL DIALYSIS Status: Chronic (3) CAD (coronary artery disease) Code(s): I25.10 - ATHSCL HEART DISEASE OF [place] CORONARY ARTERY W/O ANG PCTRS Status: Chronic Qualifiers: Coronary Disease-Associated Artery/Lesion type: [place] artery (4) HLD (hyperlipidemia) Code(s): E78.5 - HYPERLIPIDEMIA, UNSPECIFIED Status: Chronic Qualifiers: Hyperlipidemia type: unspecified Qualified Code(s): E78.5 - Hyperlipidemia , unspecified (5) HTN (hypertension) Code(s): I10 - ESSENTIAL (PRIMARY) HYPERTENSION Status: Chronic Qualifiers: Hypertension type: essential hypertension Qualified Code(s): I10 - Essential (primary) hypertension (6) Hyperphosphatemia Code(s): E83.39 - OTHER DISORDERS OF PHOSPHORUS METABOLISM Status: Chronic (7) T2DM (type 2 diabetes mellitus) Status: Chronic Qualifiers: Diabetes mellitus technician terminal and repeater insulin use: without technician terminal and repeater use - Plan Plan: 1) Hyperkalemia- resolved - likely 2/2 ESRD - K+ currently 4.8, resolved after HD - Now s/p HD X3 since admission, He is back on MWF schedule - Will continue daily BMPs - Dr. Son has cleared patient for discharge to resume MWF HD. - Discharge held overnight because patient's family wants to find him a different retirement - CM consulted for discharge planning, awaiting placement 2) Fluid overload- - likely 2/2 ESRD, BNP likely elevated due to ESRD so will hold off on ordering - improved with HD 3) Malaise- improved - Negative influenza swab - Procal is in intermediate range, downtrended to 0.78 - CXR could not r/o infiltrate - No indication for antibiotics at this time - Symptoms improved after 2nd round of dialysis 4) HTN- - home meds 5) DM2- - Home meds, accuchecks, SSI available 6) Vision impairment- fall precautions. 7) Diet- HH, renal, fluid restrict 1800 mL/day Addendum - Attending - Attending Attestation Date/Time: 02/13/18 1350 I personally evaluated the patient and discussed the management with Dr. Boone. I agree with the History, Examination, Assessment and Plan documented above with any addition or exceptions noted below. Pt continues to feel better. Waiting on acceptance to new nursing facility per family request.
[2018-02-13] MEDS: Amlodipine 10 MG TAB PO SCH (08:44)
[2018-02-13] MEDS: Calcium Acetate 667 MG CAP PO SCH ×3 (08:45→18:24)
[2018-02-13] MEDS: Ferrous Gluconate 324 MG TAB PO SCH (08:45)
[2018-02-13] MEDS: hydrALAZINE 25 MG TAB PO SCH ×3 (08:45→21:56)
[2018-02-13] MEDS: Clopidogrel Bisulfate 75 MG TAB PO SCH (08:45)
[2018-02-13] MEDS: Carvedilol 6.25 MG TAB PO SCH ×2 (08:46→21:56)
--- NOTE | 2018-02-13 09:35 | PRG ---
DATE OF SERVICE: 02/13/2018 RENAL MEDICINE SUBJECTIVE: Mr. Garcia is an 82-year-old black male with ESRD, being followed by [facility]al Service for his maintenance hemodialysis. He is tolerating his current dialysis regimen. Fluid removal was tolerated yesterday. No other complaints today. He denies any chest pain or shortness of breath. Awaiting assisted placement with this patient. OBJECTIVE: VITAL SIGNS: Blood pressure is 117/80, heart rate 75, respiratory rate 18, temperature 98.6, and pulse ox 95%. GENERAL: Awake, alert, comfortable, not in distress. SKIN: Adequate turgor. HEENT: He has pinkish conjunctivae. Anicteric sclerae. No neck mass. No carotid bruits. No JVD. CHEST: No deformities. LUNGS: Clear breath sounds. No wheezing. No crackles. HEART: Normal sinus rhythm. No murmur, no gallops, no rubs. ABDOMEN: Globular, soft, nontender. No masses. EXTREMITIES: No edema. He has limited range of motion of the left shoulder joint due to pain. NEUROLOGICAL: Decreased visual acuity. MEDICATIONS: Medications of February 13, 2018 was reviewed. LABORATORY DATA: Laboratories of February 13, 2018; sodium 138, potassium 4.8, chloride 96, carbon dioxide 26, BUN 36, creatinine 7.04, glucose 105, calcium 8.5. On February 11, 2018; white count 10.8, hemoglobin 11.7. ASSESSMENT AND PLAN: 1. End-stage renal disease, stable. We will continue current Saturday, Saturday, Saturday dialysis. He is tolerating said treatment. Again, fluid removal only as tolerated with this patient. 2. Chronic anemia-no indication for any Epogen. However, we will recheck another CBC and basic metabolic tomorrow. 3. Overall, I agree with current management. Job ID: [id number]
[2018-02-13] MEDS: traMADol HCl 50 MG TAB PO PRN ×2 (12:34→22:09)
[2018-02-13] MEDS: Ondansetron ODT 4 MG TAB PO PRN (14:59)
[2018-02-13] MEDS: Atorvastatin Calcium 10 MG TAB PO SCH (21:56)
[2018-02-13] MEDS: traZODone HCl 50 MG TAB PO SCH (21:56)
[2018-02-14] MEDS: traMADol HCl 50 MG TAB PO PRN ×2 (04:15→21:09)
--- NOTE | 2018-02-14 06:55 | PDOC.FM ---
- Subjective Subjective: Mr. Garcia seen at bedside this morning. He has no complaints, no acute events overnight. He is scheduled for dialysis this morning. He was accepted to [facility] for exterminator helper termite care but this morning daughter states that she would like him to go to SNF. Case management is on the case. He is otherwise ready for discharge. - Objective MAR Reviewed: Yes Vital Signs & Weight: Vital Signs (12 hours) Temp Pulse Resp BP BP Pulse Ox 02/14/18 04:05 97.8 F 70 20 98/61 95 02/14/18 00:10 97.4 F L 73 20 97/63 96 02/13/18 21:56 68 120/74 02/13/18 20:00 98 F 68 20 120/74 96 Weight Weight 98 kg I&O: 02/12/18 02/13/18 02/14/18 06:59 06:59 06:59 Intake Total 360 1040 450 Output Total 0 30 0 Balance 360 1010 450 Result Diagrams: 02/14/18 06:19 02/14/18 06:19 Phys Exam - Physical Examination Constitutional: NAD HEENT: moist MMs, sclera anicteric Neck: supple, full ROM Respiratory: no wheezing, no rales, no rhonchi, clear to auscultation bilateral Cardiovascular: RRR, no significant murmur Gastrointestinal: soft, non-tender, no distention Musculoskeletal: no edema, pulses present Neurological: non-focal, normal sensation Psychiatric: normal affect, A&O x 3 Dx/Plan (1) Hyperkalemia Code(s): E87.5 - HYPERKALEMIA Status: Resolved (2) ESRD (end stage renal disease) on dialysis Code(s): N18.6 - END STAGE RENAL DISEASE; Z99.2 - DEPENDENCE ON RENAL DIALYSIS Status: Chronic (3) CAD (coronary artery disease) Code(s): I25.10 - ATHSCL HEART DISEASE OF [place] CORONARY ARTERY W/O ANG PCTRS Status: Chronic Qualifiers: Coronary Disease-Associated Artery/Lesion type: [place] artery (4) HLD (hyperlipidemia) Code(s): E78.5 - HYPERLIPIDEMIA, UNSPECIFIED Status: Chronic Qualifiers: Hyperlipidemia type: unspecified Qualified Code(s): E78.5 - Hyperlipidemia , unspecified (5) HTN (hypertension) Code(s): I10 - ESSENTIAL (PRIMARY) HYPERTENSION Status: Chronic Qualifiers: Hypertension type: essential hypertension Qualified Code(s): I10 - Essential (primary) hypertension (6) Hyperphosphatemia Code(s): E83.39 - OTHER DISORDERS OF PHOSPHORUS METABOLISM Status: Chronic (7) T2DM (type 2 diabetes mellitus) Status: Chronic Qualifiers: Diabetes mellitus exterminator helper termite insulin use: without exterminator helper termite use - Plan Plan: 1) Hyperkalemia- resolved - likely 2/2 ESRD - K+ currently 4.8, resolved after HD - Now s/p HD X3 since admission, He is back on MWF schedule - Will continue daily BMPs - Dr. Son has cleared patient for discharge to resume MWF HD. - Accepted to [facility], daughter would like patient to go to SNF. CM working on case. - Goal is discharge today. 2) Fluid overload- - likely 2/2 ESRD, BNP likely elevated due to ESRD so will hold off on ordering - improved with HD 3) Malaise- improved - Negative influenza swab - Procal is in intermediate range, downtrended to 0.78 - CXR could not r/o infiltrate - No indication for antibiotics at this time - Symptoms improved after 2nd round of dialysis 4) HTN- - home meds 5) DM2- - Home meds, accuchecks, SSI available 6) Vision impairment- fall precautions. 7) Diet- HH, renal, fluid restrict 1800 mL/day Addendum - Attending - Attending Attestation Date/Time: 02/14/18 8456 I personally evaluated the patient and discussed the management with Dr. Boone. I agree with the History, Examination, Assessment and Plan documented above with any addition or exceptions noted below. Patient is still stable for discharge. This morning the pt's daughter is now requesting SNF. I do not think pt qualifies for snf placement but will discuss with case management. If accel agrees to take him he is stable for d/c.
[2018-02-14 07:04] LABS: #Eosinphils 0.2 thou/uL (0.0-0.7); #Lymphocytes 0.8 thou/uL (1.20-3.40); #Monocytes 1.1 thou/uL (0.11-0.59); #Neutrophils 7.4 thou/uL (1.40-6.50); %Basophils 0.2 % (0.0-1.0); %Eosinophils 2.4 % (0.0-10.0); %Lymphocytes 7.9 % (21.0-51.0); %Neutrophils 78.4 % (42.0-75.0); Hemoglobin 11.4 g/dL (14.0-18.0); Mean Corpuscular HGB CONC 31.1 g/dL (32.0-36.0); Mean Corpuscular Hemoglobin 26.2 pg (27.0-31.0); Mean Corpuscular Volume 84.5 fL (78.0-98.0); Mean Platelet Volume 10.4 fL (7.4-10.4); Platelet Count 210 thou/uL (130-400); RBC Distribution Width 17.8 % (11.5-14.5); Red Blood Cell (RBC) Count 4.33 mill/uL (4.70-6.10); White Blood Cell (WBC) Count 9.5 thou/uL (4.8-10.8)
[2018-02-14 07:19] LABS: Anion Gap 26 mmol/L (10-20); BUN (Urea Nitrogen) 53 mg/dL (8.4-25.7); Calc. Creatinine Clearance 9 mL/min (70-130); Calcium 8.5 mg/dL (7.8-10.44); Carbon Dioxide 20 mmol/L (23-31); Chloride 95 mmol/L (98-107); Estimated GFR-MDRD 7; Glucose 91 mg/dL (83-110); Potassium 5.5 mmol/L (3.5-5.1); Sodium 135 mmol/L (136-145)
--- NOTE | 2018-02-14 09:45 | PRG ---
DATE OF SERVICE: 02/14/2018 RENAL MEDICINE SUBJECTIVE: Mr. Garcia is an 82-year-old black male with known history of ESRD, being followed by the Renal Service for his maintenance hemodialysis. The patient was scheduled for dialysis today. We will be attempting 3 L fluid removal as tolerated. No other complaints. No chest pain. No shortness of breath. Awaiting custodial placement. OBJECTIVE: VITAL SIGNS: Blood pressure 103/68, heart rate 74, respiratory rate 16, temperature 97.7, pulse ox 97%. GENERAL: Awake, alert, comfortable, not in distress. SKIN: Adequate turgor. HEENT: Pinkish conjunctivae. Anicteric sclerae. NECK: No neck mass. No carotid bruits. No JVD. CHEST: No deformities. LUNGS: Clear breath sounds. No wheezing. No crackles. HEART: Normal sinus rhythm. No murmur. No gallops. No rubs. ABDOMEN: Globular, soft, nontender. No masses. EXTREMITIES: No edema. No deformities. MEDICATIONS: Medications of February 14, 2018, were reviewed. LABORATORY DATA: Laboratories of February 14, 2018: White count 9.5, hemoglobin 11.4. Sodium 135, potassium 5.5, chloride 95, carbon dioxide 20, BUN 53, creatinine 9.04, glucose 91, calcium 8.5. ASSESSMENT AND PLAN: 1. End-stage renal disease, stable. Continue current hemodialysis regimen. Maxing out fluid removal only as tolerated. 2. Mild hyperkalemia-hemodialysis today. Continue renal diet with this patient. Please note, his lisinopril has been adjusted downwards several days ago. 3. Type 2 diabetes mellitus-on sliding scale insulin. Overall, agree with current management. Job ID: [id number]
[2018-02-14] MEDS: Ondansetron ODT 4 MG TAB PO PRN ×2 (11:49→23:47)
[2018-02-14] MEDS: hydrALAZINE 25 MG TAB PO SCH ×3 (14:53→21:13)
[2018-02-14] MEDS: Carvedilol 6.25 MG TAB PO SCH ×2 (14:54→21:13)
[2018-02-14] MEDS: Ferrous Gluconate 324 MG TAB PO SCH (14:54)
[2018-02-14] MEDS: Clopidogrel Bisulfate 75 MG TAB PO SCH (14:54)
[2018-02-14] MEDS: Amlodipine 10 MG TAB PO SCH (14:54)
[2018-02-14] MEDS: Famotidine 20 MG TAB PO SCH (14:55)
[2018-02-14] MEDS: Calcium Acetate 667 MG CAP PO SCH ×3 (15:50→18:02)
[2018-02-14] MEDS: Atorvastatin Calcium 10 MG TAB PO SCH (21:10)
[2018-02-14] MEDS: traZODone HCl 50 MG TAB PO SCH (21:11)
[2018-02-15] MEDS: Benzonatate 100 MG CAP PO PRN ×2 (04:20→21:44)
--- NOTE | 2018-02-15 05:44 | PDOC.FM ---
- Subjective Subjective: Mr. Garcia seen at bedside this morning. He is doing well, he has no complaints and there were no acute events overnight. He denies any fever, chills, chest pain, dyspnea, n/v/d. He is still pending placement. - Objective MAR Reviewed: Yes Vital Signs & Weight: Vital Signs (12 hours) Temp Pulse Resp BP BP BP Pulse Ox 02/15/18 04:05 98.2 F 71 18 98/53 L 93 L 02/15/18 00:19 98.2 F 88 20 116/72 92 L 02/14/18 21:13 90 98/58 L 02/14/18 20:00 98.4 F 90 20 98/58 L 92 L Weight Weight 98 kg I&O: 02/13/18 02/14/18 02/15/18 06:59 06:59 06:59 Intake Total 1040 450 Output Total 30 0 0 Balance 1010 450 0 Result Diagrams: 02/14/18 06:19 02/15/18 05:14 Phys Exam - Physical Examination Constitutional: NAD HEENT: moist MMs, sclera anicteric Neck: supple, full ROM Respiratory: no wheezing, no rales, no rhonchi, clear to auscultation bilateral Cardiovascular: RRR, no significant murmur Gastrointestinal: soft, non-tender, no distention Musculoskeletal: no edema, pulses present Neurological: moves all 4 limbs blind Psychiatric: normal affect, A&O x 3 Skin: no rash Dx/Plan (1) Hyperkalemia Code(s): E87.5 - HYPERKALEMIA Status: Resolved (2) ESRD (end stage renal disease) on dialysis Code(s): N18.6 - END STAGE RENAL DISEASE; Z99.2 - DEPENDENCE ON RENAL DIALYSIS Status: Chronic (3) CAD (coronary artery disease) Code(s): I25.10 - ATHSCL HEART DISEASE OF [place] CORONARY ARTERY W/O ANG PCTRS Status: Chronic Qualifiers: Coronary Disease-Associated Artery/Lesion type: [place] artery (4) HLD (hyperlipidemia) Code(s): E78.5 - HYPERLIPIDEMIA, UNSPECIFIED Status: Chronic Qualifiers: Hyperlipidemia type: unspecified Qualified Code(s): E78.5 - Hyperlipidemia , unspecified (5) HTN (hypertension) Code(s): I10 - ESSENTIAL (PRIMARY) HYPERTENSION Status: Chronic Qualifiers: Hypertension type: essential hypertension Qualified Code(s): I10 - Essential (primary) hypertension (6) Hyperphosphatemia Code(s): E83.39 - OTHER DISORDERS OF PHOSPHORUS METABOLISM Status: Chronic (7) T2DM (type 2 diabetes mellitus) Status: Chronic Qualifiers: Diabetes mellitus [facility] insulin use: without [facility] use - Plan Plan: 1) Hyperkalemia- resolved - likely 2/2 ESRD - K+ currently 4.8, resolved after HD - Now s/p HD X3 since admission, He is back on MWF schedule - Will continue daily BMPs - Dr. Son has cleared patient for discharge to resume MWF HD. - CM working on placement, daughter has changed plan close to discharge a couple times, initially [facility], then wanted change to SNF. This has prolonged patient's discharge. He continues to remain clear for discharge. 2) Fluid overload- - likely 2/2 ESRD, BNP likely elevated due to ESRD so will hold off on ordering - improved with HD 3) Malaise- improved - Negative influenza swab - Procal is in intermediate range, downtrended to 0.78 - CXR could not r/o infiltrate - No indication for antibiotics at this time - Symptoms improved after 2nd round of dialysis 4) HTN- - home meds 5) DM2- - Home meds, accuchecks, SSI available 6) Vision impairment- fall precautions. 7) Diet- HH, renal, fluid restrict 1800 mL/day Addendum - Attending - Attending Attestation Date/Time: 02/15/18 1000 I personally evaluated the patient and discussed the management with Dr. Boone. I agree with the History, Examination, Assessment and Plan documented above with any addition or exceptions noted below. Patient stable. Awaiting placement due to issues with daughter fluctuating in her wishes for patient dispo. Monitoring electrolytes due to his propensity to develop hyperkalemia in the setting of his ESRD on HD status.
[2018-02-15 06:11] LABS: Anion Gap 20 mmol/L (10-20); BUN (Urea Nitrogen) 38 mg/dL (8.4-25.7); Calc. Creatinine Clearance 12 mL/min (70-130); Calcium 8.5 mg/dL (7.8-10.44); Carbon Dioxide 26 mmol/L (23-31); Chloride 97 mmol/L (98-107); Estimated GFR-MDRD 10; Glucose 116 mg/dL (83-110); Potassium 4.8 mmol/L (3.5-5.1); Sodium 138 mmol/L (136-145)
[2018-02-15] MEDS: Amlodipine 10 MG TAB PO SCH (08:12)
[2018-02-15] MEDS: Calcium Acetate 667 MG CAP PO SCH ×3 (08:12→16:27)
[2018-02-15] MEDS: Carvedilol 6.25 MG TAB PO SCH ×2 (08:12→20:35)
[2018-02-15] MEDS: Clopidogrel Bisulfate 75 MG TAB PO SCH (08:13)
[2018-02-15] MEDS: Ferrous Gluconate 324 MG TAB PO SCH (08:13)
[2018-02-15] MEDS: hydrALAZINE 25 MG TAB PO SCH ×3 (08:13→20:35)
[2018-02-15] MEDS: Ondansetron ODT 4 MG TAB PO PRN (14:14)
[2018-02-15] MEDS: traZODone HCl 50 MG TAB PO SCH (20:35)
[2018-02-15] MEDS: Atorvastatin Calcium 10 MG TAB PO SCH (20:35)
[2018-02-15] MEDS ORDERED: guaiFENesin ER 600 MG TAB PO SCH (22:00)
[2018-02-16] MEDS: Acetaminophen 325 MG TAB PO PRN ×3 (02:22→15:38)
[2018-02-16] MEDS: traMADol HCl 50 MG TAB PO PRN ×4 (02:22→21:41)
--- NOTE | 2018-02-16 05:47 | PDOC.FM ---
- Subjective Subjective: Andrew Garcia seen at bedside this morning. He states that he is doing well. States that overnight he had some left shoulder and left chest pain. This has been an intermittent pain for him. Pain resolved with pain medication. He denies any fever, chills, active pain, n/v. He is due for hemodialysis tomorrow and he still awaiting placement. - Objective MAR Reviewed: Yes Vital Signs & Weight: Vital Signs (12 hours) Temp Pulse Resp BP BP Pulse Ox 02/16/18 02:29 90 20 142/76 H 94 L 02/15/18 23:44 98.1 F 68 19 100/59 L 94 L 02/15/18 20:35 83 110/65 02/15/18 20:33 98.8 F 83 20 110/65 96 Weight Weight 98 kg I&O: 02/14/18 02/15/18 02/16/18 06:59 06:59 06:59 Intake Total 450 400 560 Output Total 0 0 Balance 450 400 560 Result Diagrams: 02/14/18 06:19 02/15/18 05:14 Phys Exam - Physical Examination Constitutional: NAD HEENT: moist MMs, sclera anicteric Neck: supple, full ROM Respiratory: no wheezing, no rales, no rhonchi, clear to auscultation bilateral Cardiovascular: RRR, no significant murmur Gastrointestinal: soft, non-tender Musculoskeletal: no edema, pulses present Neurological: non-focal, normal sensation, moves all 4 limbs Psychiatric: normal affect, A&O x 3 Dx/Plan (1) Hyperkalemia Code(s): E87.5 - HYPERKALEMIA Status: Resolved (2) ESRD (end stage renal disease) on dialysis Code(s): N18.6 - END STAGE RENAL DISEASE; Z99.2 - DEPENDENCE ON RENAL DIALYSIS Status: Chronic (3) CAD (coronary artery disease) Code(s): I25.10 - ATHSCL HEART DISEASE OF [place] CORONARY ARTERY W/O ANG PCTRS Status: Chronic Qualifiers: Coronary Disease-Associated Artery/Lesion type: [place] artery (4) HLD (hyperlipidemia) Code(s): E78.5 - HYPERLIPIDEMIA, UNSPECIFIED Status: Chronic Qualifiers: Hyperlipidemia type: unspecified Qualified Code(s): E78.5 - Hyperlipidemia , unspecified (5) HTN (hypertension) Code(s): I10 - ESSENTIAL (PRIMARY) HYPERTENSION Status: Chronic Qualifiers: Hypertension type: essential hypertension Qualified Code(s): I10 - Essential (primary) hypertension (6) Hyperphosphatemia Code(s): E83.39 - OTHER DISORDERS OF PHOSPHORUS METABOLISM Status: Chronic (7) T2DM (type 2 diabetes mellitus) Status: Chronic Qualifiers: Diabetes mellitus [facility] insulin use: without [facility] use - Plan Plan: 1) Hyperkalemia- resolved - likely 2/2 ESRD - K+ currently 4.8, resolved after HD - Now s/p HD X3 since admission, He is back on MWF schedule - Lab vacation today, will recheck BMP on 02/17 - Dr. Son has cleared patient for discharge to resume MWF HD. - CM working on placement, daughter has changed plan close to discharge a couple times, initially wanted [facility] to [facility], then wanted change to SNF. This has prolonged patient's discharge. He continues to remain clear for discharge. 2) Fluid overload- - likely 2/2 ESRD - improved with HD - no edema, lungs are clear 3) Malaise- improved - Negative influenza swab - Procal is in intermediate range, downtrended to 0.78 - CXR could not r/o infiltrate - No indication for antibiotics at this time - Symptoms improved after 2nd round of dialysis 4) HTN- - home meds 5) DM2- - Home meds, accuchecks, SSI available 6) Vision impairment- fall precautions. 7) Diet- HH, renal, fluid restrict 1800 mL/day Addendum - Attending - Attending Attestation Date/Time: 02/16/18 9310 I personally evaluated the patient and discussed the management with Dr. Boone. I agree with the History, Examination, Assessment and Plan documented above with any addition or exceptions noted below. Patient stable, awaiting placement. HD while in house as per outpatient schedule.
[2018-02-16] MEDS: Clopidogrel Bisulfate 75 MG TAB PO SCH (08:14)
[2018-02-16] MEDS: Calcium Acetate 667 MG CAP PO SCH ×3 (08:14→17:29)
[2018-02-16] MEDS: Ferrous Gluconate 324 MG TAB PO SCH (08:14)
[2018-02-16] MEDS: guaiFENesin ER 600 MG TAB PO SCH ×2 (08:15→21:18)
[2018-02-16] MEDS: Amlodipine 10 MG TAB PO SCH (08:21)
[2018-02-16] MEDS: hydrALAZINE 25 MG TAB PO SCH ×3 (08:22→21:20)
[2018-02-16] MEDS: Famotidine 20 MG TAB PO SCH (12:46)
[2018-02-16] MEDS: Carvedilol 6.25 MG TAB PO SCH ×2 (12:46→21:19)
--- NOTE | 2018-02-16 13:33 | RAD ---
LEFT SHOULDER 3 VIEWS: Date: 02/16/18 HISTORY: Left shoulder pain. FINDINGS: Acromioclavicular and glenohumeral alignment are maintained. Mild osteophytosis. No acute fracture, d islocation, or aggressive osseous erosions. IMPRESSION: No acute osseous abnormalities are demonstrated. POS: ASAF
[2018-02-16] MEDS: Atorvastatin Calcium 10 MG TAB PO SCH (21:18)
[2018-02-16] MEDS: traZODone HCl 50 MG TAB PO SCH (21:18)
[2018-02-17] MEDS: traMADol HCl 50 MG TAB PO PRN ×2 (05:57→21:29)
[2018-02-17] MEDS: Benzonatate 100 MG CAP PO PRN ×2 (06:16→12:48)
--- NOTE | 2018-02-17 08:37 | PDOC.FM ---
- Subjective Subjective: This morning patient states he is feeling well overall. He is more alert today than the previous week. The patient states he had a few minutes of sharp left sided chest pain earlier this morning which came on and resolved spontaneously. The patient states he is eating and drinking without difficulty. He denies any other pain at the moment. Says he is feeling better than when he came in. - Objective Vital Signs & Weight: Vital Signs (12 hours) Temp Pulse Resp BP BP Pulse Ox 02/17/18 05:30 98.1 F 73 16 100/63 93 L 02/17/18 00:00 97.9 F 71 16 115/71 95 02/16/18 21:20 87 110/72 02/16/18 21:19 110/72 Weight Weight 98 kg I&O: 02/16/18 02/17/18 02/18/18 06:59 06:59 06:59 Intake Total 560 480 Output Total 0 Balance 560 480 Result Diagrams: 02/14/18 06:19 02/15/18 05:14 Phys Exam - Physical Examination Constitutional: NAD HEENT: PERRLA, moist MMs Neck: supple Respiratory: no wheezing, clear to auscultation bilateral Cardiovascular: RRR 1/6 systolic murmur Gastrointestinal: soft, non-tender, no distention, positive bowel sounds Musculoskeletal: no edema, pulses present Neurological: moves all 4 limbs Psychiatric: normal affect, A&O x 3 Skin: cap refill <2 seconds Dx/Plan (1) Hyperkalemia Code(s): E87.5 - HYPERKALEMIA Status: Resolved (2) ESRD (end stage renal disease) on dialysis Code(s): N18.6 - END STAGE RENAL DISEASE; Z99.2 - DEPENDENCE ON RENAL DIALYSIS Status: Chronic (3) HLD (hyperlipidemia) Code(s): E78.5 - HYPERLIPIDEMIA, UNSPECIFIED Status: Chronic Qualifiers: Hyperlipidemia type: unspecified Qualified Code(s): E78.5 - Hyperlipidemia , unspecified (4) HTN (hypertension) Code(s): I10 - ESSENTIAL (PRIMARY) HYPERTENSION Status: Chronic Qualifiers: Hypertension type: essential hypertension Qualified Code(s): I10 - Essential (primary) hypertension (5) T2DM (type 2 diabetes mellitus) Status: Chronic Qualifiers: Diabetes mellitus [facility] insulin use: without [facility] use - Plan Plan: # Hyperkalemia- resolved - likely 2/2 ESRD - K+ pending lab draw in dialysis - Now s/p HD X3 since admission, He is back on MWF schedule - Dr. Son has cleared patient for discharge to resume MWF HD. # Fluid overload- resolved - likely 2/2 ESRD - improved with HD - no edema, lungs are clear 3) Malaise- improved - Negative influenza swab - Procal downtrended to 0.78 - CXR could not r/o infiltrate - Symptoms improved after 2nd round of dialysis 4) HTN- - home meds 5) DM2- - Home meds, accuchecks, SSI available 6) Vision impairment- fall precautions. 7) Diet- HH, renal, fluid restrict 1800 mL/day Dispo: patient's daughter fired initial foster care case manager, pending placement, stable for d/c CM working on placement, daughter has changed plan close to discharge a couple times, initially [facility], then wanted change to SNF. This has prolonged patient's discharge. He continues to remain clear for discharge. Addendum - Attending - Attending Attestation Date/Time: 02/17/18 8595 I personally evaluated the patient and discussed the management with Dr. Amaya. I agree with the History, Examination, Assessment and Plan documented above with any addition or exceptions noted below. Patient stable, receiving scheduled HD today. Awaiting placement per and will be stable for discharge at that time. Of note, patient has been stable for discharge for near 1 week at this point but has not been discharged due to changing wishes/decisions from patient's daughter about his placement. We have made no changes to his treatment plan that necessitates hospitalization in 4-5 days.
--- NOTE | 2018-02-17 08:51 | PRG ---
DATE OF SERVICE: 02/17/2018 RENAL MEDICINE. SUBJECTIVE: Mr. Garcia is an 82-year-old black male with ESRD, currently undergoing hemodialysis. I am at the bedside supervising his dialysis, still has complaints of left shoulder joint pain. An x-ray of the left shoulder was done yesterday and it showed mild osteophytosis with no acute fracture or dislocation or any osseous erosions. No complaints of chest pain or shortness of breath. OBJECTIVE: VITAL SIGNS: Blood pressure is 100/63, heart rate 73, respiratory rate 16, temperature 98.1, and pulse ox 93%. GENERAL: Noted to be awake, supine, comfortable, not in overt distress, and obese. SKIN: Adequate turgor. HEENT: He has a pinkish conjunctivae. Anicteric sclerae. NECK: No neck mass. No carotid bruits. No JVD. CHEST: No deformities. LUNGS: Decreased breath sounds. HEART: Normal sinus rhythm. No murmur. No gallops. No rubs. ABDOMEN: Globular, soft, and nontender. No masses. EXTREMITIES: No edema. No deformities. Limited range of motion left shoulder joint. MEDICATIONS: Medications of February 17, 2018, was reviewed. LABORATORY DATA: Laboratories of February 14, 2018, white count 9.5 and hemoglobin 11.4. Sodium 138, potassium 4.8, chloride 97, carbon dioxide 26, BUN 38, creatinine 6.75, glucose 116, and calcium 8.5. ASSESSMENT AND PLAN: 1. End-stage renal disease, stable. We will continue current hemodialysis regimen. Again, fluid removal as tolerated. Minimal heparin use. 2. Left shoulder joint pain - no evidence of overt fracture per se. In the near future, he may need an MRI or an orthopedic re-evaluation of this left shoulder joint pain. 3. The patient is awaiting outpatient skilled nursing placement. Agree with current management. Job ID: [id number]
[2018-02-17 10:09] LABS: Anion Gap 22 mmol/L (10-20); BUN (Urea Nitrogen) 81 mg/dL (8.4-25.7); Calc. Creatinine Clearance 7 mL/min (70-130); Calcium 8.5 mg/dL (7.8-10.44); Carbon Dioxide 24 mmol/L (23-31); Chloride 92 mmol/L (98-107); Estimated GFR-MDRD 5; Glucose 92 mg/dL (83-110); Potassium 5.1 mmol/L (3.5-5.1); Sodium 133 mmol/L (136-145); Troponin I 0.141 ng/mL (< 0.028)
[2018-02-17] MEDS: Calcium Acetate 667 MG CAP PO SCH ×3 (12:49→18:36)
[2018-02-17] MEDS: Ferrous Gluconate 324 MG TAB PO SCH (12:49)
[2018-02-17] MEDS: Clopidogrel Bisulfate 75 MG TAB PO SCH (12:49)
[2018-02-17] MEDS: guaiFENesin ER 600 MG TAB PO SCH ×2 (12:49→21:28)
[2018-02-17] MEDS: Amlodipine 10 MG TAB PO SCH (13:01)
[2018-02-17] MEDS: Carvedilol 6.25 MG TAB PO SCH ×2 (13:01→21:28)
[2018-02-17] MEDS: hydrALAZINE 25 MG TAB PO SCH ×3 (13:01→21:29)
--- NOTE | 2018-02-17 17:16 | EKG ---
Test Reason : Blood Pressure : / mmHG Vent. Rate : 084 BPM Atrial Rate : 084 BPM P-R Int : 000 ms QRS Dur : 178 ms QT Int : 472 ms P-R-T Axes : 000 262 059 degrees QTc Int : 557 ms Atrial fibrillation Right bundle branch block , plus right ventricular hypertrophy T wave abnormality, consider lateral ischemia or digitalis effect cannot R/O acute injury Abnormal ECG When compared with ECG of 09-FEB-2018 17:21, (Unconfirmed) Nonspecific T wave abnormality no longer evident in Inferior leads Confirmed by DR. Alycia GRULLON ([id number]) on 02/17/2018 5:16:02 PM Referred By: RANJEET GÓMEZ Confirmed By:DR. Alycia GRULLON
[2018-02-17] MEDS: Atorvastatin Calcium 10 MG TAB PO SCH (21:28)
[2018-02-17] MEDS: traZODone HCl 50 MG TAB PO SCH (21:28)
[2018-02-18] MEDS ORDERED: Senokot S 8.6-50 MG TAB PO PRN (07:00)
--- NOTE | 2018-02-18 08:07 | PDOC.FM ---
- Subjective Subjective: This morning patient states he slept well overnight. He enjoyed listening to the [employer] game and is quite pleased [place] won. Patient denies cp, sob, cough, N/V/D. Has been tolerating PO well. He states he has some irriation at his dialysis catheter site. - Objective Vital Signs & Weight: Vital Signs (12 hours) Temp Pulse Resp BP BP Pulse Ox 02/18/18 04:00 98.2 F 95 18 105/55 L 98 02/18/18 00:00 98.8 F 95 18 124/73 98 02/17/18 21:29 95 107/60 02/17/18 21:28 107/60 Weight Weight 98 kg I&O: 02/17/18 02/18/18 02/19/18 06:59 06:59 06:59 Intake Total 480 480 Output Total 0 0 Balance 480 480 Result Diagrams: 02/18/18 07:57 02/18/18 07:57 Phys Exam - Physical Examination Constitutional: NAD HEENT: PERRLA, moist MMs Neck: no nodes, full ROM Respiratory: no wheezing, clear to auscultation bilateral Cardiovascular: RRR, no significant murmur Gastrointestinal: soft, non-tender, no distention, positive bowel sounds Musculoskeletal: no edema, pulses present Neurological: non-focal, moves all 4 limbs Psychiatric: normal affect, A&O x 3 Skin: no rash, cap refill <2 seconds Deviation from normal: no redness or erythema to dialysis catheter site Dx/Plan (1) Hyperkalemia Code(s): E87.5 - HYPERKALEMIA Status: Resolved (2) ESRD (end stage renal disease) on dialysis Code(s): N18.6 - END STAGE RENAL DISEASE; Z99.2 - DEPENDENCE ON RENAL DIALYSIS Status: Chronic (3) HLD (hyperlipidemia) Code(s): E78.5 - HYPERLIPIDEMIA, UNSPECIFIED Status: Chronic Qualifiers: Hyperlipidemia type: unspecified Qualified Code(s): E78.5 - Hyperlipidemia , unspecified (4) HTN (hypertension) Code(s): I10 - ESSENTIAL (PRIMARY) HYPERTENSION Status: Chronic Qualifiers: Hypertension type: essential hypertension Qualified Code(s): I10 - Essential (primary) hypertension (5) T2DM (type 2 diabetes mellitus) Status: Chronic Qualifiers: Diabetes mellitus recruiter manager insulin use: without long-term use - Plan Plan: # Hyperkalemia- resolved - likely 2/2 ESRD - recheck pending this AM - Now s/p HD X4 since admission, He is back on MWF schedule - Dr. Son has cleared patient for discharge to resume MWF HD. # indeterminate troponin - 0.14 yesterday before dialysis, EKG shows no acute changes - repeat troponin ordered this AM for f/u - patient not complaining of diaphoresis, chest pain, or sob this AM # Fluid overload- resolved - likely 2/2 ESRD - improved with HD - no edema, lungs are clear # Malaise- improved - Negative influenza swab - Procal downtrended to 0.78 - CXR could not r/o infiltrate - Symptoms improved after 2nd round of dialysis # HTN- - home meds # DM2- - Home meds, accuchecks, SSI available # Vision impairment- fall precautions. # Diet- HH, renal, fluid restrict 1800 mL/day Dispo: patient's daughter fired initial bilingual case manager, pending placement, stable for d/c. Addendum - Attending - Attending Attestation Date/Time: 02/18/18 1019 I personally evaluated the patient and discussed the management with Dr. Amaya. I agree with the History, Examination, Assessment and Plan documented above with any addition or exceptions noted below. Doing well. No changes to treatment plan and continues to be stable for discharge once placement arranged.
[2018-02-18 08:19] LABS: #Eosinphils 0.2 thou/uL (0.0-0.7); #Lymphocytes 0.8 thou/uL (1.20-3.40); #Monocytes 0.8 thou/uL (0.11-0.59); #Neutrophils 6.9 thou/uL (1.40-6.50); %Eosinophils 1.9 % (0.0-10.0); %Lymphocytes 9.3 % (21.0-51.0); %Monocytes 8.9 % (0.0-10.0); %Neutrophils 79.8 % (42.0-75.0); Hemoglobin 11.6 g/dL (14.0-18.0); Mean Corpuscular HGB CONC 30.6 g/dL (32.0-36.0); Mean Corpuscular Hemoglobin 25.4 pg (27.0-31.0); Mean Corpuscular Volume 82.9 fL (78.0-98.0); Mean Platelet Volume 10.2 fL (7.4-10.4); Platelet Count 216 thou/uL (130-400); RBC Distribution Width 17.6 % (11.5-14.5); Red Blood Cell (RBC) Count 4.56 mill/uL (4.70-6.10); White Blood Cell (WBC) Count 8.6 thou/uL (4.8-10.8)
[2018-02-18 08:39] LABS: Anion Gap 21 mmol/L (10-20); BUN (Urea Nitrogen) 53 mg/dL (8.4-25.7); Calc. Creatinine Clearance 10 mL/min (70-130); Calcium 8.7 mg/dL (7.8-10.44); Carbon Dioxide 25 mmol/L (23-31); Chloride 94 mmol/L (98-107); Estimated GFR-MDRD 8; Glucose 139 mg/dL (83-110); Potassium 4.7 mmol/L (3.5-5.1); Sodium 135 mmol/L (136-145)
--- NOTE | 2018-02-18 09:44 | PRG ---
DATE OF SERVICE: 02/18/2018 SUBJECTIVE: Mr. Garcia is an 82-year-old black male with ESRD and being followed by [facility] for ESRD and maintenance hemodialysis. He is tolerating his current dialysis regimen. He received dialysis yesterday. He still has an occasional left shoulder joint pain. An x-ray was done, it showed no fracture. The patient is requesting to change his surgeon. He was said to have been upset with the office of the surgeon. We will be looking for another surgeon who can pull the patient's dialysis catheter per the patient's daughter's request. The patient has no other complaints. Denies any chest pain or shortness of breath. OBJECTIVE: VITAL SIGNS: Blood pressure is 98/59, heart rate 72, respiratory rate 16, temperature 97.9, and pulse ox 95%. GENERAL: Awake, supine, comfortable, not in distress. SKIN: Adequate turgor. HEENT: He has pinkish conjunctivae. Anicteric sclerae. NECK: No neck mass. No carotid bruits. No JVD. CHEST: No deformities. LUNGS: Clear breath sounds. No wheezing. No crackles. HEART: Normal sinus rhythm. No murmur. No gallops. No rubs. ABDOMEN: Globular, soft, nontender. No masses. EXTREMITIES: No edema. No deformities. MEDICATIONS: Medications of February 18, 2018 was reviewed. LABORATORY DATA: February 18, 2018; white count 8.6, hemoglobin 11.6. Sodium 135, potassium 4.7, chloride 94, carbon dioxide 25, BUN 53, creatinine 8.25, glucose 139, and calcium 8.7. ASSESSMENT AND PLAN: 1. End-stage renal disease, stable. Continuing Saturday, Saturday, and Saturday hemodialysis regimen. We will consult another surgeon per the patient's daughter's request. We will consider consulting Dr. Meyer, if he will see the patient to have the dialysis catheter pulled out. If not, we can always schedule the patient on an outpatient and [facility]. 2. Left shoulder joint pain-he will need an orthopedic evaluation as an outpatient. He may need an intra-articular injection with steroid. Overall, agree with current management. Job ID: [id number]
[2018-02-18] MEDS: Ferrous Gluconate 324 MG TAB PO SCH (09:50)
[2018-02-18] MEDS: Amlodipine 10 MG TAB PO SCH (09:50)
[2018-02-18] MEDS: guaiFENesin ER 600 MG TAB PO SCH (09:50)
[2018-02-18] MEDS: Calcium Acetate 667 MG CAP PO SCH ×2 (09:50→13:08)
[2018-02-18] MEDS: Carvedilol 6.25 MG TAB PO SCH (09:51)
[2018-02-18] MEDS: Clopidogrel Bisulfate 75 MG TAB PO SCH (09:53)
[2018-02-18] MEDS: Famotidine 20 MG TAB PO SCH (09:58)
[2018-02-18] MEDS: Ergocalciferol 1.25 MG(50,000 UNITS) CAP PO SCH (09:58)
[2018-02-18] MEDS: hydrALAZINE 25 MG TAB PO SCH ×2 (09:59→16:06)
--- NOTE | 2018-02-18 11:01 | PDOC.EVN ---
Event Note - Event Note Event Note: Patient's daughter fired Dr. Celeste, see Dr. Son's consultation note from today Patient has been accepted to [facility] Spoke to Dr. Meyer, he will come evaluate patient to pull hemodialysis catheter Patient needs to have hemodialysis catheter pulled before being discharged, has been using fistula for dialysis
[2018-02-18 12:13] VITALS: BP 112/69; TEMP 98.5
[2018-02-18] MEDS ORDERED: Lidocaine 1% (PF) 30 ML VIAL ONE ×2 (12:32→13:36)
--- NOTE | 2018-02-18 16:06 | HP ---
HISTORY OF PRESENT ILLNESS: Andrew Garcia is an 82-year-old male patient, hospitalized recently has a left IJ cuffed tunneled dialysis catheter and a functioning left upper arm fistula. The patient had a dialysis graft forearm placed in [place] more than a year ago. He reported with thrombosis of a graft. The patient refused to have his right arm evaluated for use as a fistula. Dr. Celeste last year, placed a left upper arm fistula. This is matured and is working well. The patient has been hospitalized recently and I have been asked to see him regarding removal of his hemodialysis catheter. This patient is awaiting transfer to the residential. Apparently, Dr. Celeste was called to do this and the daughter was upset that she did not come readily. The daughter called the office and spoke loudly, yelled and was rude to our staff. She was asked not to behave in such a way and took offense and asked that Dr. Celeste not to see the patient again. I have been asked to see him regarding removal of hemodialysis catheter by Dr. Son. PHYSICAL EXAMINATION: LUNGS: Clear to auscultation. CARDIAC: Regular rate and rhythm without murmur or gallop. ABDOMEN: Soft. GENERAL: The patient is very pleasant. He has left IJ cuffed tunneled dialysis catheter. Exit site is normal. Left upper arm fistula, good thrill and bruit. Thrombosed left forearm access graft. Job ID: [id number]
--- NOTE | 2018-02-19 11:24 | OP ---
DATE OF PROCEDURE: 02/18/2018 PREOPERATIVE DIAGNOSIS: Functioning left upper arm cephalic vein fistula placed by Dr. Celeste. POSTOPERATIVE DIAGNOSIS: Functioning left upper arm cephalic vein fistula placed by Dr. Celeste. PROCEDURE PERFORMED: Removal of left IJ cuffed tunneled dialysis catheter. ANESTHESIA: 1% Xylocaine with epinephrine. DESCRIPTION OF PROCEDURE: With the patient at bedside, a catheter exit site of the left chest was prepared with alcohol. Local anesthetic was infiltrated into the skin and subcutaneous tissue. Catheter and cuff were removed intact. Hemostasis was gained with local pressure. The patient tolerated the procedure well. Job ID: [id number] [facility]
== END 2018-02-18 15:50 | DRG 640 ==
LOC: ERS 17:06 → OBSVTOIN 20:59 → SJJU 20:59 → SURG A 02-16 10:09
PROVIDERS: ADMIT Family Medicine; ATTEND Family Medicine
PROC: 5A1D70Z Performance of Urinary Filtration, Intermittent, Less than 6 Hours Per Day (ICD-10-PCS; 2018-02-09)
PROC: 5A1D70Z Performance of Urinary Filtration, Intermittent, Less than 6 Hours Per Day (ICD-10-PCS; 2018-02-10)
PROC: 5A1D70Z Performance of Urinary Filtration, Intermittent, Less than 6 Hours Per Day (ICD-10-PCS; 2018-02-12)
PROC: 5A1D70Z Performance of Urinary Filtration, Intermittent, Less than 6 Hours Per Day (ICD-10-PCS; 2018-02-14)
PROC: 5A1D70Z Performance of Urinary Filtration, Intermittent, Less than 6 Hours Per Day (ICD-10-PCS; principal; 2018-02-17)
PROC: 0JPT3XZ Removal of Tunneled Vascular Access Device from Trunk Subcutaneous Tissue and Fascia, Percutaneous Approach (ICD-10-PCS; 2018-02-18)
PROC: 05PYX3Z Removal of Infusion Device from Upper Vein, External Approach (ICD-10-PCS; 2018-02-18)
DX: E87.5 Hyperkalemia (principal); N18.6 End stage renal disease; I12.0 Hypertensive chronic kidney disease with stage 5 chronic kidney disease or end stage renal disease; E87.70 Fluid overload, unspecified; E11.22 Type 2 diabetes mellitus with diabetic chronic kidney disease; Z99.2 Dependence on renal dialysis; E78.5 Hyperlipidemia, unspecified; I25.10 Atherosclerotic heart disease of native coronary artery without angina pectoris; E83.39 Other disorders of phosphorus metabolism; K21.9 Gastro-esophageal reflux disease without esophagitis; G47.00 Insomnia, unspecified; I48.91 Unspecified atrial fibrillation; J44.9 Chronic obstructive pulmonary disease, unspecified; D63.8 Anemia in other chronic diseases classified elsewhere; K59.00 Constipation, unspecified; R53.81 Other malaise; H54.7 Unspecified visual loss; M25.512 Pain in left shoulder; Z80.9 Family history of malignant neoplasm, unspecified
CPT/HCPCS: 36415; 36416; 71045; 74177; 80048; 80053; 82550; 82553; 84145; 84484; 85025; 86706; 87340; 87804; 90935; 93005; 93010; 96374; 96375; G0257; J1644; J1815; J2001; J2060; J7611; Q0162